=== PATIENT | male | born 2000 | race Caucasian/White ===

== ENCOUNTER 2023-08-07 09:53 | Emergency (ER) | payer OTHER, SELFPAY ==
[2023-08-07 09:59] VITALS: BP 102/86; PULSE 89; RESP 16; TEMP 36.7; O2SAT 99; BMI 25.7
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
[2023-08-07] MEDS: METHYLPREDNISOLONE SOD SUCC PF 125 MG/2 ML VIAL IM (10:10)
[2023-08-07] MEDS: ONDANSETRON 4 MG RAPDIS TABLET SL (10:34)
--- NOTE | 2023-08-07 10:34 | PC.NURSE ---
Pt got nauseous 5 mins after getting steroid shot. Pt states he hasn't eaten today yet. Gatorade and crackers given.
== END 2023-08-07 10:39 | disposition home or self-care (01) ==
LOC: ER 10:10
PROVIDERS: Emergency Provider Emergency Medicine
DX: L50.0 Allergic urticaria (principal)
CPT/HCPCS: 96374; 99284; J2930

== ENCOUNTER 2023-10-04 10:25 | Emergency (ER) | payer OTHER, SELFPAY ==
[2023-10-04 10:24] VITALS: BP 134/77; PULSE 95; RESP 20; TEMP 36.6; O2SAT 100; BMI 22.6
--- NOTE | 2023-10-04 10:38 | ED.ALLEREA1 ---
HPI - Allergic Reaction General Chief complaint: Allergic Reaction Stated complaint: HIVES/STOMACH CRAMPS Time Seen by Provider: 10/04/23 10:33 Source: patient Mode of arrival: walk-in Limitations: no limitations History of Present Illness HPI narrative: yesterday the patient developed raised red rash to the arms and chest after giving his friend - who had been working outside - a hug. He suspects that he had exposure to poison romero, which led to the rash. He did not take any Benadryl or anything else at home. No trouble breathing or shortness of breath. No vomiting or fever. Related Data Home Medications Medication Instructions Recorded Confirmed lamotrigine 200 mg tablet 400 mg PO Q12H 10/04/23 10/04/23 Previous Rx's Medication Instructions Recorded prednisone 10 mg tablet See Rx Instructions .Route 08/07/23 .COMPLEX #30 tabs diphenhydramine HCl 25 mg capsule 25 mg PO Q6H PRN allergic reaction 10/04/23 (Benadryl) #30 caps prednisone 20 mg tablet 40 mg (2 x 20 mg) PO DAILY PRN 10/04/23 rash #14 tabs Allergies Allergy/AdvReac Type Severity Reaction Status Date / Time poison romero extract Allergy Severe Verified 10/04/23 10:29 Penicillins AdvReac Severe Verified 08/07/23 10:03 PFS PFS Social History Smoking status: Heavy tobacco smoker Exam Narrative Exam Narrative: Nurses notes and vital signs reviewed and patient is not hypoxic. afebrile General: Well-appearing and in no apparent distress. Skin: Warm, dry, no pallor noted. Diffuse urticarial rash involving the torso and extremities. Head: Normocephalic, atraumatic. Eye: Pupils are equal, round and EOMI. No scleral icterus. Ears, Nose, Mouth, and Throat: TM are clear, no posterior oropharynx erythema or nasal mucosal hypertrophy, uvula is mid-line Oral mucosa is moist Cardiovascular: Regular Rate and Rhythm without murmur, gallop or rub. Respiratory: No accessory muscle use or respiratory distress. Lungs are clear to auscultation, no wheezing, rales or rhonchi Musculoskeletal: normal ROM Neurological: A&O x4. No cranial nerve dysfunction observed. No truncal ataxia. Moves all extremities. Sensation intact. Psychiatric: Cooperative and interactive. Normal mood and affect. Constitutional Vital Signs, click to edit/add: Last Vital Signs Temp 98 F 10/04/23 10:24 Pulse 95 H 10/04/23 10:24 Resp 20 10/04/23 10:24 BP 134/77 10/04/23 10:24 Pulse Ox 100 10/04/23 10:24 O2 Del Method Room Air 10/04/23 10:24 Course Vital Signs Vital signs: Vital Signs Temperature 98 F 10/04/23 10:24 Pulse Rate 95 H 10/04/23 10:24 Respiratory Rate 20 10/04/23 10:24 Blood Pressure 134/77 10/04/23 10:24 Pulse Oximetry 100 10/04/23 10:24 Oxygen Delivery Method Room Air 10/04/23 10:24 Temperature 98 F 10/04/23 10:24 Pulse Rate 95 H 10/04/23 10:24 Respiratory Rate 20 10/04/23 10:24 Blood Pressure 134/77 10/04/23 10:24 Pulse Oximetry 100 10/04/23 10:24 Oxygen Delivery Method Room Air 10/04/23 10:24 MDM - Allergic Reaction MDM Narrative Medical decision making narrative: Patient developed diffuse urticarial rash - potential exposure to poison romero. He was given IM Solumedrol and oral benadryl in the ED and then was discharged home with prescription for Prednisone and Benadryl. Discussed importance of cleaning under fingernails, remove clothes and shower to remove any residual oils. Discharge Plan Discharge Chief Complaint: Allergic Reaction Clinical Impression: Urticaria Patient Disposition: Home, Self-Care Time of Disposition Decision: 10:41 Prescriptions / Home Meds: New diphenhydramine HCl [Benadryl] 25 mg capsule 25 mg PO Q6H PRN (Reason: allergic reaction) Qty: 30 0RF prednisone 20 mg tablet 40 mg PO DAILY PRN (Reason: rash) Qty: 14 0RF No Action prednisone 10 mg tablet See Rx Instructions .ROUTE .COMPLEX Qty: 30 0RF Rx Instructions: 4 by mouth daily for three days then 3 by mouth daily for three days then 2 by mouth daily for three days then 1 by mouth daily for three days lamotrigine 200 mg tablet 400 mg PO Q12H Instructions: Urticaria (ED) Stand Alone Forms: Portal Instructions Referrals: Physician,Non-Staff, MD [Primary Care Provider] - 1 week
[2023-10-04] MEDS: METHYLPREDNISOLONE SOD SUCC PF 125 MG/2 ML VIAL IM (10:48)
[2023-10-04] MEDS: DIPHENHYDRAMINE HCL 25 MG CAPSULE PO (10:49)
== END 2023-10-04 11:02 | disposition home or self-care (01) ==
PROVIDERS: Emergency Provider Emergency Medicine
DX: L50.9 Urticaria, unspecified (principal); F17.210 Nicotine dependence, cigarettes, uncomplicated; Z79.899 Other long term (current) drug therapy
CPT/HCPCS: 96372; 99284; J2930

== ENCOUNTER 2024-04-11 16:37 | Emergency (ER) | payer OTHER, SELFPAY ==
--- OUTSIDE RECORDS SUMMARY | 2024-04-11 16:50 | XMS_ITS | CCD ---
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 [phone] Office fax: [phone] [facility] Infectious Disease Consult Services PATIENT NAME: Juanjose Bolden SERVICE DATE: January 16, 2023 SERVICE TIME: 9:17 AM PRIMARY CARE PHYSICIAN: Jasper Russo DO Provider requesting the consultation: Tonie Camarillo MD Chief Complaint / Reason for Consult: HPI Juanjose Bolden is a 22 year old male with PMHx of epilepsy, who presented with a wound on his right shoulder after an injury. Patient states he had a fall form skateboarding 5 days back. At that time he noticed a skin break but did not realize the pain so much because of cannabis use. 2 days later, he noticed active purulent discharge, pain, numbness and tingling and redness around the area. Deneis fever. Patient used neosporin on the wound. On arrival, the patient was tachycardiac. Labs showed no leukocytosis. CRP was elevated (2.6). MRSA swab positive. Allergies: ALLERGIES Allergen Reactions Penicillins Unknown Pt does not remember reaction, just that he's allergic Trileptal [Oxcarbaz* Hives Current Antimicrobials: Antibiotic / Dose / Interval Dates 1) IV Cefazolin 1g every 8 hours 01/15/23-ongoing 2) Bacitracin ointment 3) 4) 5) Prior Antimicrobials: Antibiotic Dates 1) IV Ceftriaxone 1g once 01/15/23 2) IV Vancomycin 1g once 01/15/23 3) 4) 5) Current Medications: Current Facility-Administere d Medications Medication Dose Route Frequency NaCl 0.9% iv flush bag 20 mL INTRAVENOUS PRN diphenhydrAMINE 25 mg injection (BENADRYL) 25 mg INTRAVENOUS q 6 H PRN bacitracin zinc 500 unit/gram topical ointment TOPICAL BID ceFAZolin iv piggyback 1 g in D5W (iso-osmotic) 50 mL (ANCEF) 1 g INTRAVENOUS q 8 HR lamoTRIgine 400 mg tab(s) (LaMICtal) 400 mg ORAL BID zonisamide 100 mg cap(s) (ZONEGRAN) 100 mg ORAL q 12 H Outpatient Medications (Listed previous to this encounter): No current facility-administere d medications on file prior to encounter. Current Outpatient Medications on File Prior to Encounter Medication Sig zonisamide (ZONEGRAN) 100 mg capsule Take 1 capsule by mouth every 12 hours. lamoTRIgine (LAMICTAL) 200 mg tablet Take 2 tablets by mouth twice daily. clonazePAM (KLONOPIN) 0.5 mg tablet Take 1 tablet by mouth as needed (for motor seizure lasting > 3 minutes OR for auras to prevent clustering. Max 2 pills in 24 hours.) for up to 180 days. Past Medical History: PAST MEDICAL HISTORY Diagnosis Date Attention deficit disorder (ADD) without hyperactivity Drug side effects, initial encounter 07/15/2018 Elevated cholesterol Epilepsy (HCC) Other infants, unspecified (weight)(765.10) 34 weeks; intubated x 1-2 days; 2 weeks in NICU; [facility] Past Surgical History: No past surgical history on file. Social History / Exposure History: Social History Tobacco Use Smoking status: Former Packs/day: 0.50 Years: 5.00 Pack years: 2.50 Types: Cigarettes Quit date: 2020 Years since quittin.2 Smokeless tobacco: Never Substance Use Topics Alcohol use: Not Currently Drug use: Yes Types: Marijuana Comment: smoking AND tinctures Exposure History: [] Contact with person with known COVID-19 infection Family History: FAMILY HISTORY Problem Relation Age of Onset Hypertension Mother Lung Cancer Maternal Grandfather No Known Problems Paternal Grandmother No Known Problems Paternal Grandfather Review of Systems: REVIEW OF SYSTEMS (14 systems): System POSITIVE Negative Constitutional [] fever [] chills [] night sweats [] weight loss [x] fever [x] chills [x] night sweats [] weight loss Eyes [] vision changes [x] vision changes ENT/mouth [] hearing changes [] runny nose [] loss of smell [] sore throat [] new mouth lesions [] loss of taste [x] hearing changes [] runny nose [] loss of smell [x] sore throat [x] new mouth lesions [] loss of taste Hematologic/lymphati c [] swollen lymph nodes [x] swollen lymph nodes Cardiovascular [] chest pain [x] chest pa (more content not included)... [facility] NURSING PROGon 01-16-2023 NURSING PROG HNO ID: [id number] Author: Moses Downey RN Service: Nursing Author Type: Registered Nurse Type: Nursing Progress Note Filed: 01/16/2023 5:36 PM Note Text: January 16, 2023 TO WHOM IT MAY CONCERN: This is to certify that Juanjose Bolden has been under the care of Dr. Acuna. Juanjose Bolden is unable to work from 01/15/2023 through 01/24/2023. The patient may return to work on 01/25/2023 with the following instructions: No restrictions. Sincerely yours, Moses Downey RN [facility] NURSING PROG HNO ID: [id number] Author: Moses Downey RN Service: Nursing Author Type: Registered Nurse Type: Nursing Progress Note Filed: 01/16/2023 5:35 PM Note Text: Nursing Progress Note: AANDO x 3, pleasant and cooperative.VSS; Afebrile. Meds given as ordered, pills whole with water (see MAR). Continues to C/O RUE soreness, worse with movement. Dressing changed with bacitracin, Xeroform and Kerlix with an [place] covering. PT up independently, steady gait. Safety maintained at this time, call light and personal belongings in reach, bed locked and lowered. PT states no other needs at this time. Will continue to monitor. Took pictures with [facility] phone but phone wouldn't log in to upload. The folowing images are from yesterday but appear unchanged from today. [facility] ALLIED HEALTHon 01-15-2023 ALLIED HEALTH HNO ID: [id number] Author: Nadine Rascon RT(R) Service: ? Author Type: Technologist Type: Allied Health Filed: 01/15/2023 12:43 PM Note Text: Radiology Service Progress Note PATIENT NAME: Juanjose Bolden DATE OF SERVICE: January 15, 2023 TIME: 12:43 PM PATIENT IDENTITY VERIFICATION COMPLETED USING TWO (2) IDENTIFIERS: Name and Date of confirmed by patient verbally and Name and Date of confirmed by identification band. FALL SCREENING: Has the patient had 2 falls in the last year or 1 fall with injury or currently using an Ambulatory Assistive Device (Walker, Cane, Wheelchair, Crutches, etc.)? Emergency Room Patient: Screened in ED PATIENT GENDER DATA: Male PATIENT RELEVANT IMPLANT DATA REVIEWED: Not Applicable RADIOLOGY DEPARTMENT: General X-ray: Exam(s) Completed: Upper Extremity X-Ray(s): Shoulder, AP / TRUE AP right and Humerus, right PERIPHERAL IV DATA: Not applicable SIGNED BY: Nadine Rascon, RT(R) January 15, 2023 12:43 PM Normal [facility]: [id number] Author: J CARLOS Mcneill Service: Social Work Author Type: Physical Therapy Technician Type: Care Mgt Initial Assessment Filed: 01/15/2023 4:16 PM Note Text: CARE MANAGEMENT: ASSESSMENT AND DISCHARGE PLAN SERVICE DATE: January 15, 2023 SERVICE TIME: 2:00 pm PRIMARY CARE PHYSICIAN: Jasper Russo DO Primary Contact: Extended Emergency Contact Information Primary Emergency Contact: Nadine Morillo Address: [address] [place] [address] Mobile Relation: Mother ADMISSION STATUS: Emergency Insurance Provider: [facility] MEDICAID NEEDS PRIOR TO DISCHARGE Needs Prior to Discharge: IV Antibiotics POTENTIAL TRANSITION PLANS To Be Determined Based on clinical judgement, Care Management will address the following needs: Medical Patient's perception of need for this admission: arm wound infection ADVANCE DIRECTIVES Current Advance Directive: None Coal 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 From what level of care did patient present?: Home Last discharge within 30 days: No PATIENT SCREEN Patient/Representati ve Stated Goals: To have reduction in symptoms Under the care of a PCP?: Yes, Internal Provider Provider Name: Jasper Russo Last Known Visit: 10/04/23 Does the patient have transportation upon discharge?: No Situation: Pt walked to ED and wants to walk home. Use of any community resources?: No Does the patient have a stable and supportive living arrangement and home setting?: Yes Are there any potential risks or gaps identified by risk/functional/fall ,etc. scores in the EMR?: No Any potential risks related to substance abuse and/or behavioral health?: No Situation: denies Based on clinical judgement, Care Management will address the following needs: Medical CAREGIVER ASSESSMENT Caregiver is ready, willing and able to meet the patient's needs as recommended by the inter-professional team:: No Caregiver needed Patient's transition needs and plan for meeting these needs: IV atbx No medical discharge barriers identified at this time. No social discharge barriers identified at this time. No behavioral/cognitive discharge barriers identified at this time. No functional discharge barriers identified at this time. FREEDOM OF CHOICE EXPLAINED: Levan of Choice Given: No Reason Not Given: No placements necessary Are you interested in bedside delivery of your medications? Yes ASSESSMENT AND PLAN: ED assessed bedside. Pt presents to ED with right arm wound infection from skateboarding. Pt lives in an apartment with a roommate (Kunal). [employer], employed, drives (car not working) and does not utilize DME. Pt wants to walk home. CM/SW following to assist with discharge planning. SIGNATURE: J CARLOS Mcneill PATIENT NAME: Juanjose Bolden DATE: January 15, 2023 TIME: 3:44 PM CONTACT #: [id number] Normal [facility] CBC W Auto Differential pane l (Bld)on 01-15-2023 Basophils (Bld) [#/Vol] 0.03 10*3/uL Normal <0.11 [facility] Comment on above: Order Comment: Speci men Type: BLOOD SPECIMEN Ordering Facility: [facility] Address: [address] [place] [id number] Performed By: #### 5 7021-8 #### [facility] CLIA [id number] [place] [address] [place] Basophils/100 WBC (Bld) 0.4 % Normal [facility] Comment on above: Order Comment: Speci men Type: BLOOD SPECIMEN Ordering Facility: [facility] Address: [address] [place] [address] Performed By: #### 5 7021-8 #### [facility] CLIA [id number] [address] [place] [address] [place] Differential cell count method Nom (Bld) Auto Normal [facility] Comment on above: Order Comment: Speci men Type: BLOOD SPECIMEN Ordering Facility: [facility] Address: [address] [place] [address] Performed By: #### 5 7021-8 #### [facility] CLIA [id number] [address] [place] [address] [place] Eosinophils (Bld) [#/Vol] 0.14 10*3/uL Normal <0.46 [facility] Comment on above: Order Comment: Speci men Type: BLOOD SPECIMEN Ordering Facility: [facility] Address: [address] [place] [address] Performed By: #### 5 7021-8 #### [facility] CLIA [id number] [address] [place] [address] [place] Eosinophils/100 WBC (Bld) 1.8 % Normal [facility] Comment on above: Order Comment: Speci men Type: BLOOD SPECIMEN Ordering Facility: [facility] Address: [address] [place] [address] Performed By: #### 5 7021-8 #### [facility] CLIA [id number] [address] [place] [address] [place] Erythrocyte distribution width (RBC) [Ratio] 11.6 % Normal 11.5-15.0 [facility] Comment on above: Order Comment: Speci men Type: BLOOD SPECIMEN Ordering Facility: [facility] Address: [address] [place] [address] Performed By: #### 5 7021-8 #### [facility] CLIA [id number] [address] [place] [address] [place] Hematocrit (Bld) [Volume fraction] 43.2 % Normal 39.0-51.0 [facility] Comment on above: Order Comment: Speci men Type: BLOOD SPECIMEN Ordering Facility: [facility] Address: [address] [place] [address] Performed By: #### 5 7021-8 #### [facility] CLIA [id number] [address] [place] [address] [place] Hemoglobin (Bld) [Mass/Vol] 14.4 g/dL Normal 13.0-17.0 [facility] Comment on above: Order Comment: Speci men Type: BLOOD SPECIMEN Ordering Facility: [facility] Address: [address] [place] [address] Performed By: #### 5 7021-8 #### [facility] CLIA [id number] [address] [place] [address] [place] Immature granulocytes (Bld) [#/Vol] 10*3/uL Normal <0.10 [facility] Comment on above: Order Comment: Speci men Type: BLOOD SPECIMEN Ordering Facility: [facility] Address: [address] [place] [address] Performed By: #### 5 7021-8 #### [facility] CLIA [id number] [address] [place] [address] [place] Immature granulocytes/100 WBC (Bld) 0.3 % Normal [facility] Comment on above: Order Comment: Speci men Type: BLOOD SPECIMEN Ordering Facility: [facility] Address: [address] [address] Performed By: #### 5 7021-8 #### [facility] CLIA [id number] [address] [place] [address] [place] Lymphocytes (Bld) [#/Vol] 1.74 10*3/uL Normal 1.00-4.00 [facility] Comment on above: Order Comment: Speci men Type: BLOOD SPECIMEN Ordering Facility: [facility] Address: [address] [address] Performed By: #### 5 7021-8 #### [facility] CLIA [id number] [address] [place] [address] [place] Lymphocytes/100 WBC (Bld) 22.0 % Normal [facility] Comment on above: Order Comment: Speci men Type: BLOOD SPECIMEN Ordering Facility: [facility] Address: [address] [address] Performed By: #### 5 7021-8 #### [facility] CLIA [id number] [address] [place] [address] [place] MCH (RBC) [Entitic mass] 29.8 pg Normal 26.0-34.0 [facility] Comment on above: Order Comment: Speci men Type: BLOOD SPECIMEN Ordering Facility: [facility] Address: [address] [place] [address] Performed By: #### 5 7021-8 #### [facility] CLIA [id number] [address] [place] [address] [place] MCHC (RBC) [Mass/Vol] 33.3 g/dL Normal 30.5-36.0 [facility] Comment on above: Order Comment: Speci men Type: BLOOD SPECIMEN Ordering Facility: [facility] Address: [address] [place] [address] Performed By: #### 5 7021-8 #### [facility] CLIA [id number] [address] [place] [address] [place] MCV (RBC) [Entitic vol] 89.3 fL Normal 80.0-100.0 [facility] Comment on above: Order Comment: Speci men Type: BLOOD SPECIMEN Ordering Facility: [facility] Address: [address] [place] [address] Performed By: #### 5 7021-8 #### [facility] CLIA [id number] [address] [place] [address] [place] Monocytes (Bld) [#/Vol] 0.44 10*3/uL Normal <0.87 [facility] Comment on above: Order Comment: Speci men Type: BLOOD SPECIMEN Ordering Facility: [facility] Address: [address] [place], [place] [id number] Performed By: #### 5 7021-8 #### [facility] CLIA [id number] [address] [place] [address] [place] Monocytes/100 WBC (Bld) 5.6 % Normal [facility] Comment on above: Order Comment: Speci men Type: BLOOD SPECIMEN Ordering Facility: [facility] Address: [address] [place] [address] Performed By: #### 5 7021-8 #### [facility] CLIA [id number] [address] [place] [address] [place] Neutrophils (Bld) [#/Vol] 5.54 10*3/uL Normal 1.45-7.50 [facility] Comment on above: Order Comment: Speci men Type: BLOOD SPECIMEN Ordering Facility: [facility] Address: [address] [place] [address] Performed By: #### 5 7021-8 #### [facility] CLIA [id number] [address] [place] [address] [place] Neutrophils/100 WBC (Bld) 69.9 % Normal [facility] Comment on above: Order Comment: Speci men Type: BLOOD SPECIMEN Ordering Facility: [facility] Address: [address] [place] [address] Performed By: #### 5 7021-8 #### [facility] CLIA [id number] [address] [place] [address] [place] Nucleated RBC (Bld) [#/Vol] 10*3/uL Normal <0.01 [facility] Comment on above: Order Comment: Speci men Type: BLOOD SPECIMEN Ordering Facility: [facility] Address: [address] [place] [address] Performed By: #### 5 7021-8 #### [facility] CLIA [id number] [address] [place] [address] [place] Nucleated RBC/100 WBC (Bld) [Ratio] 0.0 /100 WBC Normal [facility] Comment on above: Order Comment: Speci men Type: BLOOD SPECIMEN Ordering Facility: [facility] Address: [address] [address] Performed By: #### 5 7021-8 #### [facility] CLIA [id number] [address] [place] [address] [place] Platelet mean volume (Bld) [Entitic vol] 8.8 fL Low 9.0-12.7 [facility] Comment on above: Order Comment: Speci men Type: BLOOD SPECIMEN Ordering Facility: [facility] Address: [address] [address] Performed By: #### 5 7021-8 #### [facility] CLIA [id number] [address] [place] [address] [place] Platelets (Bld) [#/Vol] 271 10*3/uL Normal 150-400 [facility] Comment on above: Order Comment: Speci men Type: BLOOD SPECIMEN Ordering Facility: [facility] Address: [address] [address] Performed By: #### 5 7021-8 #### [facility] CLIA [id number] [address] [place] [address] [place] RBC (Bld) [#/Vol] 4.84 10*6/uL Normal 4.20-6.00 [facility] Comment on above: Order Comment: Speci men Type: BLOOD SPECIMEN Ordering Facility: [facility] Address: [address] [address] Performed By: #### 5 7021-8 #### [facility] CLIA [id number] [address] [place] [address] [place] WBC (Bld) [#/Vol] 7.91 10*3/uL Normal 3.70-11.00 [facility] Comment on above: Order Comment: Speci men Type: BLOOD SPECIMEN Ordering Facility: [facility] Address: [address] [place] [address] Performed By: #### 5 7021-8 #### [facility] CLIA [id number] [address] [place] [address] [place] CK SerPl-cCncon 01-15-2023 CK [Catalytic activity/Vol] 65 U/L Normal 51-298 [facility] Comment on above: Order Comment: Speci men Type: BLOOD SPECIMENOrdering Facility: [facility] Address: [address] [id number] Performed By: #### 2 8, 2157-03 ####[facility] [id number] [address] [id number] [place] CRP SerPl-mCncon 01-15-2023 CRP [Mass/Vol] 2.6 mg/dL High <0.9 [facility] Comment on above: Order Comment: Speci men Type: BLOOD SPECIMENOrdering Facility: [facility] Address: [address] Performed By: #### 2 4328, 1988-02, 2157-03 ####[facility] [id number] [place] [id number] [place] Comprehensive metabolic 2000 panelon 01-15-2023 Albumin [Mass/Vol] 4.6 g/dL Normal 3.9-4.9 [facility] Comment on above: Order Comment: Speci men Type: BLOOD SPECIMENOrdering Facility: [facility] Address: [address] [address] Performed By: #### 2 4328, 2157-03 ####[facility] [id number] [place] [id number] [place] ALP [Catalytic activity/Vol] 113 U/L Normal 38-113 [facility] Comment on above: Order Comment: Speci men Type: BLOOD SPECIMENOrdering Facility: [facility] Address: [place] [address] Performed By: #### 2 8, 1988-02, 2157-03 ####[facility] [id number] [place] [id number] [place] ALT [Catalytic activity/Vol] 32 U/L Normal 10-54 [facility] Comment on above: Order Comment: Speci men Type: BLOOD SPECIMENOrdering Facility: [facility] Address: [address] Performed By: #### 2 432-8, 2157-03 ####[facility] [id number] [place] [id number] [place] Anion gap [Moles/Vol] 9 mmol/L Normal 9-18 [facility] Comment on above: Order Comment: Speci men Type: BLOOD SPECIMENOrdering Facility: [facility] Address: [address] [address] Performed By: #### 2 8, 2157-03 ####[facility] [id number] [place] [id number] [place] AST [Catalytic activity/Vol] 23 U/L Normal 14-40 [facility] Comment on above: Order Comment: Speci men Type: BLOOD SPECIMENOrdering Facility: [facility] Address: [address] [address] Performed By: #### 2 8, 2157-03 ####[facility] [id number] [place] [id number] [place] Bilirubin [Mass/Vol] 0.3 mg/dL Normal 0.2-1.3 [facility] Comment on above: Order Comment: Speci men Type: BLOOD SPECIMENOrdering Facility: [facility] Address: [address] Performed By: #### 2 8, 2157-03 ####[facility] [id number] [place] [id number] [place] Calcium [Mass/Vol] 10.1 mg/dL Normal 8.5-10.2 [facility] Comment on above: Order Comment: Speci men Type: BLOOD SPECIMENOrdering Facility: [facility] Address: [address] [address] Performed By: #### 2 432-8, 2157-03 ####[facility] [id number] [place] [id number] [place] Chloride [Moles/Vol] 101 mmol/L Normal 97-105 [facility] Comment on above: Order Comment: Speci men Type: BLOOD SPECIMENOrdering Facility: [facility] Address: [address] [id number] Performed By: #### 2 4323-8, 1988-02, 2157-03 ####[facility] [id number] [place] [id number] [place] CO2 [Moles/Vol] 30 mmol/L Normal 22-30 [facility] Comment on above: Order Comment: Speci men Type: BLOOD SPECIMENOrdering Facility: [facility] Address: [address] [id number] Performed By: #### 2 4323-8, 1988-02, 2157-03 ####[facility] [id number] [place] [id number] [place] Creatinine [Mass/Vol] 0.76 mg/dL Normal 0.73-1.22 [facility] Comment on above: Order Comment: Speci men Type: BLOOD SPECIMENOrdering Facility: [facility] Address: [address] [place], [place] [address] Performed By: #### 2 4323-8, 2157-03 ####[facility] [id number] [address] [id number] [facility] [place] ESTIMATED GLOMERULAR FILTRATION RATE 130 mL/min/1.73m??? Normal >=60 [facility] Comment on above: Order Comment: Speci men Type: BLOOD SPECIMENOrdering Facility: [facility] Address: [address] [place], [place] [address] Result Comment: Luz mated Glomerular Filtration Rate (eGFR) is calculated using the 2020 CKD-EPI creatinine equation. This equation utilizes serum creatinine, sex, and age as parameters. The creatinine assay has traceable calibration to isotope dilution-mass spectrometry. Refer to KDIGO guidelines for clinical interpretation. In patients with unstable renal function, e.g. those with acute kidney injury, the eGFR may not accurately reflect actual GFR. Performed By: #### 2 4323-8, 2157-03 ####[facility] [id number] [place] [address] [place] Glucose [Mass/Vol] 93 mg/dL Normal 74-99 [facility] Comment on above: Order Comment: Speci men Type: BLOOD SPECIMENOrdering Facility: [facility] Address: [address] [place], [place] [phone] Result Comment: The [place] Diabetes Association (ADA) provides guidance for cutoff values for fasting glucose and random glucose. The ADA defines fasting as no caloric intake for at least 8 hours. Fasting plasma glucose results between 100 to 125 mg/dL indicate increased risk for diabetes (prediabetes). Fasting plasma glucose results greater than or equal to 126 mg/dL meet the criteria for diagnosis of diabetes. In the absence of unequivocal hyperglycemia, results should be confirmed by repeat testing. In a patient with classic symptoms of hyperglycemia or hyperglycemic crisis, random plasma glucose results greater than or equal to 200 mg/dL meet the criteria for diagnosis of diabetes. Reference: Standards of Medical Care in Diabetes 2016, [place] Diabetes Association. Diabetes Care. 2016.39(Suppl 1). Performed By: #### 2 4323-8, 2157-03 ####[facility] [id number] [place] [id number] [place] Potassium [Moles/Vol] 4.4 mmol/L Normal 3.7-5.1 [facility] Comment on above: Order Comment: Speci men Type: BLOOD SPECIMENOrdering Facility: [facility] Address: [address] [place] [address] Performed By: #### 2 4323-8, 2157-03 ####[facility] [id number] [place] [id number] [place] Protein [Mass/Vol] 7.5 g/dL Normal 6.3-8.0 [facility] Comment on above: Order Comment: Speci men Type: BLOOD SPECIMENOrdering Facility: [facility] Address: [address] Performed By: #### 2 4323-8, 1988-02, 2157-03 ####[facility] [id number] [place] [id number] [place] Sodium [Moles/Vol] 140 mmol/L Normal 136-144 [facility] Comment on above: Order Comment: Speci men Type: BLOOD SPECIMENOrdering Facility: [facility] Address: [address] [place] [address] Performed By: #### 2 4323-8, 2157-03 ####[facility] [id number] [address] [id number] [place] Urea nitrogen [Mass/Vol] 15 mg/dL Normal 9-24 [facility] Comment on above: Order Comment: Speci men Type: BLOOD SPECIMENOrdering Facility: [facility] Address: [address] [place] [address] Performed By: #### 2 4323-8, 2157-03 ####[facility] [id number] [address] [place] [id number] [facility] ED NOTEon 01-15-2023 ED NOTE HNO ID: [id number] Author: Anthony Casarez RN Service: Nursing Author Type: Registered Nurse Type: ED Notes Filed: 01/15/2023 12:11 PM Note Text: Pt reports he was skateboarding two days ago and fell and hit his right arm/shoulder. Pt with infected would to right arm with cellulites. Arm is red and swollen and warm Plan of care -Monitor Patient's Vital Signs for changes in condition -Monitor patient for changes in pain -Maintain patient safety and privacy -Provide comfort measures -Call light in place Siderails up, bed in locked and low position Normal [facility] ED PROV NOTEon 01-15-2023 ED PROV NOTE HNO ID: [id number] Author: Mckenzie Arcos DO Service: Emergency Medicine Author Type: Physician Type: ED Provider Notes Filed: 01/15/2023 5:28 PM Note Text: ED Provider Note Patient Name: Juanjose Bolden : 2000 SERVICE DATE: 01/15/23 History Patient presents with: Wound Infection: Pt reports he was skateboarding two days ago and fell and hit his right arm/shoulder. Pt with infected would to right arm with cellulites. Arm is red and swollen and warm [facility]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 Address: [address] [place], [place] [id number] Performed By: #### 5 7021-8 #### [facility] [place] [id number] [address] [place] [address] [place] Platelets (Bld) [#/Vol] 375 10*3/uL Normal 150-400 [facility] Comment on above: Order Comment: Speci men Type: BLOOD SPECIMEN Ordering Facility: [facility] Address: [address] [place], [place] [address] Performed By: #### 5 7021-8 #### [facility] CLIA [id number] [address] [place], [place] [address] [place] RBC (Bld) [#/Vol] 5.45 10*6/uL Normal 4.20-6.00 [facility] Comment on above: Order Comment: Speci men Type: BLOOD SPECIMEN Ordering Facility: [facility] Address: [address] [place], [place] [address], [place] [address] Performed By: #### 5 7021-8 #### [facility] CLIA [id number] [address] [place], [place] [address] [place] WBC (Bld) [#/Vol] 8.83 10*3/uL Normal 3.70-11.00 [facility] Comment on above: Order Comment: Speci men Type: BLOOD SPECIMEN Ordering Facility: [facility] Address: [place] [address] Performed By: #### 5 7021-8 #### [facility] CLIA [id number] [address] [place], [place] [address] [facility] [place] CT BRAIN WO IVCONon 01-25-20 CT BRAIN WO IVCON * * *Final Report* * * DATE OF EXAM: Jan 24 2022 9:33AM [facility] 0504 - CT BRAIN WO IVCON / PROCEDURE REASON: Head trauma, headache * * * * Physician Interpretation * * * * EXAMINATION: CT BRAIN WO IVCON CLINICAL HISTORY: Head trauma, headache TECHNIQUE: Serial axial images without IV contrast were obtained from the vertex to the foramen magnum. MQ: CTBWO_3 CT Radiation dose: Integrated Dose-Length Product (DLP) for this visit = 875 mGy*cm CT Dose Reduction Employed: No dose reduction techniques were required COMPARISON: None. RESULT: Post-operative change: None. Acute change: No evidence of an acute infarct or other acute parenchymal process. Hemorrhage: No evidence of acute intracranial hemorrhage. ECASS hemorrhagic transformation score: Not Applicable Mass Lesion / Mass Effect: There is no evidence of an intracranial mass or extraaxial fluid collection. No significant mass effect. Chronic change: None apparent. Parenchyma: There is no significant volume loss. The brain parenchyma is otherwise within normal limits for age. Ventricles: The ventricles are within normal limits of size and configuration for age. 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 Paranasal sinuses and skull base: The visualized paranasal sinuses are grossly clear. The skull base and imaged soft tissues are unremarkable. Clear Coat Sprayer (topogram) images: No additional findings. IMPRESSION: No acute intracranial hemorrhage identified. Air Launch Weapons Technician: PSCB Transcribe Date/Time: Jan 24 2022 9:47A Dictated by : JAGDEEP MALHOTRA MD This examination was interpreted and the report reviewed and electronically signed by: JAGDEEP MALHOTRA MD on Jan 24 2022 9:56AM EST [id number] CN [facility] metabolic 2000 panelon 01-24-2022 Albumin [Mass/Vol] 5.4 g/dL High 3.9-4.9 [facility] Comment on above: Order Comment: Speci men Type: BLOOD SPECIMEN Ordering Facility: [facility] Address: [address] [place] [address] Performed By: #### 5 7021-8 #### [facility] CLIA [id number] [address] [place] [address] STATES [facility] ALP [Catalytic activity/Vol] 138 U/L High 38-113 [facility] Comment on above: Order Comment: Speci men Type: BLOOD SPECIMEN Ordering Facility: [facility] Address: [address] [place] [address] Performed By: #### 5 7021-8 #### [facility] CLIA [id number] [address] [place] [address] ALT [Catalytic activity/Vol] 74 U/L High 10-54 [facility] Comment on above: Order Comment: Speci men Type: BLOOD SPECIMEN Ordering Facility: [facility] Address: [address] [place] [address] Performed By: #### 5 7021-8 #### [facility] CLIA [id number] [address] [place], [place] [address] [place] Anion gap [Moles/Vol] 30 mmol/L High 9-18 [facility] Comment on above: Order Comment: Speci men Type: BLOOD SPECIMEN Ordering Facility: [facility] Address: [address] [place] [address] Performed By: #### 5 7021-8 #### [facility] CLIA [id number] [address] [place] [address] [place] AST [Catalytic activity/Vol] 43 U/L High 14-40 [facility] Comment on above: Order Comment: Speci men Type: BLOOD SPECIMEN Ordering Facility: [facility] Address: [address] [place] [address] Performed By: #### 5 7021-8 #### [facility] CLIA [id number] [address] [place] [address] [place] Bilirubin [Mass/Vol] 0.2 mg/dL Normal 0.2-1.3 [facility] Comment on above: Order Comment: Speci men Type: BLOOD SPECIMEN Ordering Facility: [facility] Address: [address] [place] [address] Performed By: #### 5 7021-8 #### [facility] CLIA [id number] [facility] [place] [address] [place] Calcium [Mass/Vol] 10.0 mg/dL Normal 8.5-10.2 [facility] Comment on above: Order Comment: Speci men Type: BLOOD SPECIMEN Ordering Facility: [facility] Address: [address] [place], [place] [address] Performed By: #### 5 7021-8 #### [facility] CLIA [id number] [address] [place] [address] [place] Chloride [Moles/Vol] 98 mmol/L Normal 97-105 [facility] Comment on above: Order Comment: Speci men Type: BLOOD SPECIMEN Ordering Facility: [facility] Address: [address] [place], [place] [address] Performed By: #### 5 7021-8 #### [facility] CLIA [id number] [facility] [address] [place] [address] [place] CO2 [Moles/Vol] 12 mmol/L Low 22-30 [facility] Comment on above: Order Comment: Speci men Type: BLOOD SPECIMEN Ordering Facility: [facility] Address: [address] [place] [address] [place] [address] Performed By: #### 5 7021-8 #### [facility] [place] [id number] [address] [place] [address] [place] OF [facility] Creatinine [Mass/Vol] 0.87 mg/dL Normal 0.73-1.22 [facility] Comment on above: Order Comment: Kisha allison Type: BLOOD SPECIMEN Ordering Facility: [facility] Address: [address] [place], [place] [address] Performed By: #### 5 7021-8 #### [facility] [id number] [address] [place] [address] ESTIMATED GLOMERULAR FILTRATION RATE 126 mL/min/1.73m??? Normal >=60 [facility] Comment on above: Order Comment: Kisha allison Type: BLOOD SPECIMEN Ordering Facility: [facility] Address: [address] [place] [address] Result Comment: Luz mated Glomerular Filtration Rate (eGFR) is calculated using the 2020 CKD-EPI creatinine equation. This equation utilizes serum creatinine, sex, and age as parameters. The creatinine assay has traceable calibration to isotope dilution-mass spectrometry. Refer to KDIGO guidelines for clinical interpretation. In patients with unstable renal function, e.g. those with acute kidney injury, the eGFR may not accurately reflect actual GFR. Performed By: #### 5 7021-8 #### [facility] IA [id number] [address] [place], [place] [address] [place] Glucose [Mass/Vol] 121 mg/dL High 74-99 [facility] Comment on above: Order Comment: Kisha allison Type: BLOOD SPECIMEN Ordering Facility: [facility] Address: [address] [place], [place] [address] Result Comment: The [place] Diabetes Association (ADA) provides guidance for cutoff values for fasting glucose and random glucose. The ADA defines fasting as no caloric intake for at least 8 hours. Fasting plasma glucose results between 100 to 125 mg/dL indicate increased risk for diabetes (prediabetes). Fasting plasma glucose results greater than or equal to 126 mg/dL meet the criteria for diagnosis of diabetes. In the absence of unequivocal hyperglycemia, results should be confirmed by repeat testing. In a patient with classic symptoms of hyperglycemia or hyperglycemic crisis, random plasma glucose results greater than or equal to 200 mg/dL meet the criteria for diagnosis of diabetes. Reference: Standards of Medical Care in Diabetes 2016, [place] Diabetes Association. Diabetes Care. 2016.39(Suppl 1). Performed By: #### 5 7021-8 #### [facility] [place] [id number] [address] [place] [address] [place] Potassium [Moles/Vol] 4.3 mmol/L Normal 3.7-5.1 [facility] Comment on above: Order Comment: Hernáni keegan Type: BLOOD SPECIMEN Ordering Facility: [facility] Address: [address] [place] [address] Performed By: #### 5 7021-8 #### [facility] [place] [id number] [address] [place] [address] [place] Protein [Mass/Vol] 8.9 g/dL High 6.3-8.0 [facility] Comment on above: Order Comment: Hernáni keegan Type: BLOOD SPECIMEN Ordering Facility: [facility] Address: [address] [place] [address] Performed By: #### 5 7021-8 #### [facility] IA [id number] [address] [place] [address] [place] Sodium [Moles/Vol] 140 mmol/L Normal 136-144 [facility] Comment on above: Order Comment: Speci men Type: BLOOD SPECIMEN Ordering Facility: [facility] Address: [address] [place] [address] Performed By: #### 5 7021-8 #### [facility] CLIA [id number] [address] [place], [place] [address] [place] Urea nitrogen [Mass/Vol] 17 mg/dL Normal 9-24 [facility] Comment on above: Order Comment: Speci men Type: BLOOD SPECIMEN Ordering Facility: [facility] Address: [address] [place], [place] [address] [address] Performed By: #### 5 7021-8 #### [facility] [id number] [facility] [address] ATTN BH[address]AV[address] ED NOTEon 01-24-2022 ED NOTE HNO ID: [id number] Author: Gretchen Thomas RN Service: ? Author Type: Registered Nurse Type: ED Notes Filed: 01/24/2022 11:44 AM Note Text: Discharge instructions reviewed, patient aware for the need to follow up. Follow up name and phone number provided. Patient educated on condition and aware of what s/s to look out for and immediately call his doctor or return to the nearest ED. Patient skin is warm, dry and acyanotic. Respirations even and non-labored. Pt stable and voiced no concerns at discharge. Patient provided with MyChart activation code. [facility] ED NOTE HNO ID: [id number] Author: Gretchen Thomas RN Service: ? Author Type: Registered Nurse Type: ED Notes Filed: 01/24/2022 11:40 AM Note Text: PT given pants to wear home. Pt has all belongings and is steady on his feet. [facility] ED NOTE HNO ID: [id number] Author: Gretchen Thomas RN Service: ? Author Type: Registered Nurse Type: ED Notes Filed: 01/24/2022 10:53 AM Note Text: Pt awake and answering questions appropriately. Pt drank water without issue. LIP at the bedside. [facility] ED NOTE HNO ID: [id number] Author: Gretchen Thomas RN Service: ? Author Type: Registered Nurse Type: ED Notes Filed: 01/24/2022 10:12 AM Note Text: Mom at the bedside. [facility] ED NOTE HNO ID: [id number] Author: Gretchen Thomas RN Service: ? Author Type: Registered Nurse Type: ED Notes Filed: 01/24/2022 8:56 AM Note Text: 1 mg ativan given per MD verbal order. [facility] ED NOTE HNO ID: [id number] Author: Daphne Qureshi RN Service: ? Author Type: Registered Nurse Type: ED Notes Filed: 01/24/2022 8:53 AM Note Text: Bed: ED-15 Expected date: Expected time: Means of arrival: Comments: ems [facility] ED PROV NOTEon 01-24-2022 ED PROV NOTE HNO ID: [id number] Author: Héctor Leo DO Service: Emergency Medicine Author Type: Physician Type: ED Provider Notes Filed: 01/24/2022 4:58 PM Note Text: ED Provider Note Patient Name: Juanjose Bolden : 2000 SERVICE DATE: 01/24/22 History Patient presents with: Seizures 21-year-old male with PMH epilepsy, ADHD, presenting to ED via EMS for concern of seizure activity. Per EMS report: Coworkers witnessed 2 generalized seizures at work before calling EMS. He was confused after the second seizure. EMS witnessed a third seizure however seizure aborted prior to any medications. No meds given by EMS. Patient postictal, confused upon arrival; patient not answering questions or following commands. Patient incontinent of urine, some blood on the lips and right ear. History provided by: Medical records and patient PAST MEDICAL HISTORY Diagnosis Date - Attention deficit disorder (ADD) without hyperactivity - Elevated cholesterol - Epilepsy (HCC) - Other infants, unspecified (weight)(765.10) 34 weeks; intubated x 1-2 days; 2 weeks in NICU; [facility] PAST SURGICAL HISTORY Procedure Laterality Date - NONE no circ FAMILY HISTORY Problem Relation Age of Onset - Hypertension Mother - None Father - Lung Cancer Maternal Grandfather - No Known Problems Paternal Grandmother - No Known Problems Paternal Grandfather Social History Tobacco Use - Smoking status: Current Every Day Smoker Packs/day: 0.50 Years: 5.00 Pack years: 2.50 Types: Cigarettes - Smokeless tobacco: Never Used - Tobacco comment: vape Substance and Sexual Activity - Alcohol use: Not Currently - Drug use: Not Currently - Sexual activity: Not on file ALLERGIES Allergen Reactions - Fx Hx Of Penicillin* Unknown - Trileptal [Oxcarbaz* Hives Review of Systems Unable to perform ROS: Mental status change Physical Exam Vitals [01/24/22 0853] BP Pulse Temp Temp src Resp SpO2 Weight Height 159/104 (!) 127 37.1 ?C (98.8 ?F) Axillary 20 99 % -- -- Physical Exam Vitals and nursing note reviewed. Constitutional: Appearance: He is well-developed. HENT: Head: Normocephalic and atraumatic. Comments: Dry, chapped lips. +bite to right posterior tongue. Eyes: Pupils: Pupils are equal, round, and reactive to light. Cardiovascular: Rate and Rhythm: Normal rate and regular rhythm. Heart sounds: Normal heart sounds. No murmur heard. Pulmonary: Effort: Pulmonary effort is normal. Breath sounds: Normal breath sounds. No wheezing. Abdominal: General: Bowel sounds are normal. There is no distension. Palpations: Abdomen is soft. Tenderness: There is no abdominal tenderness. Genitourinary: Comments: Incontinent of urine. Musculoskeletal: General: Normal range of motion. Cervical back: Normal range of motion and neck supple. Comments: No midline, spinous process tenderness. No lacerations, deformity or ecchymosis to extremities. Lymphadenopathy: Cervical: No cervical adenopathy. Skin: General: Skin is warm and dry. Findings: No rash. Neurological: Mental Status: He is alert. Comments: Awake, uncooperative, confused. Appears postictal. Diagnostic Testing ED Labs Ordered and Reviewed COMP METABOLIC PANEL - Abnormal; Notable for the following components: Result Value Ref Range Protein, Total 8.9 (*) 6.3 - 8.0 g/dL Albumin 5.4 (*) 3.9 - 4.9 g/dL Alkaline Phosphatase 138 (*) 38 - 113 U/L AST 43 (*) 14 - 40 U/L ALT 74 (*) 10 - 54 U/L Glucose 121 (*) 74 - 99 mg/dL CO2 12 (*) 22 - 30 mmol/L Anion Gap 30 (*) 9 - 18 mmol/L All other components within normal limits MAGNESIUM BLD - Abnormal; Notable for the following components: Magnesium 2.4 (*) 1.7 - 2.3 mg/dL All other components within normal limits CBC + DIFF - Abnormal; Notable for the following components: MPV 8.5 (*) 9.0 - 12.7 fL All other components within normal limits Narrative: This is an appended report. These results have been appended to a previously verified report. TOX SCREEN ROUT UR - Abnormal; Notable for the following components: Cannabinoids, Urine Preliminary positive (*) Negative All other components within normal limits Narrative: Immunoassay screen only. Cross reactivity with other substances can occur with immunoassay screening. Detection of any drug(s) in this urine toxicology panel is presumptive only. These tests are for medical purposes only and should not be used for compliance monitoring, legal, or forensic use. Samples should be within normal physiological conditions (e.g. pH). This assay does not include adulteration/specime n validity testing. In clinical settings, confirmatory testing is at the practitioner's discretion [1]. If clinically indicated, confirmation by high specificity, quantitative methodology, which includes adulteration/specime n validity testing, may be requested on the same specimen through Client S (more content not included)... Normal [facility] Ethanol [Mass/Vol] mg/dL Normal <11 [facility] Comment on above: Order Comment: Speci men Type: BLOOD SPECIMEN Ordering Facility: [facility] Address: [address] [place] [address] Performed By: #### 5 7021-8 #### [facility] CLIA [id number] [address] [place] [address] [place] [facility] Magnesium [Mass/Vol] 2.4 mg/dL High 1.7-2.3 [facility] Comment on above: Order Comment: Speci men Type: BLOOD SPECIMEN Ordering Facility: [facility] Address: [address] [place] [address] Performed By: #### 5 7021-8 #### [facility] CLIA [id number] [address] [place] [address] [place] TOX SCREEN ROUT URon 022 Amphetamines Confirm (U) [Mass/Vol] Negative Normal Negative [facility] Comment on above: Order Comment: Speci men Type: URINE SPECIMEN Ordering Facility: [facility] Address: [address] [place] [address] Result Comment: Cuto ff threshold at 1000 ng/mL. Performed By: #### U TOX2 #### [facility] CLIA [id number] [address] [place], [place] [id number] [place] BARBITURATES, URINE Negative Normal Negative [facility] Comment on above: Order Comment: Speci men Type: URINE SPECIMEN Ordering Facility: [facility] Address: [address] [place] [address] Result Comment: Cuto ff threshold at 200 ng/mL. Performed By: #### U TOX2 #### [facility] CLIA [id number] [facility] [place] [address] [place] BENZODIAZEPINES, UR Negative Normal Negative [facility] Comment on above: Order Comment: Speci men Type: URINE SPECIMEN Ordering Facility: [facility] Address: [address] [place] [address] Result Comment: Cuto ff threshold at 200 ng/mL. Performed By: #### U TOX2 #### [facility] CLIA [id number] [address] [place] [address] [place] CANNABINOIDS,URINE Positive Abnormal Negative [facility] Comment on above: Order Comment: Speci men Type: URINE SPECIMEN Ordering Facility: [facility] Address: [address] [place] [address] Result Comment: Cuto ff threshold at 50 ng/mL. Performed By: #### U TOX2 #### [facility] CLIA [id number] [address] [place] [address] [place] Cocaine Ql (U) Negative Normal Negative [facility] Comment on above: Order Comment: Speci men Type: URINE SPECIMEN Ordering Facility: [facility] Address: [address] [place] [address] Result Comment: Cuto ff threshold at 300 ng/mL. Performed By: #### U TOX2 #### [facility] CLIA [id number] [address] [place], [place] [id number] [place] Ethanol (U) [Mass/Vol] <11 Normal <11 [facility] Comment on above: Order Comment: Speci men Type: URINE SPECIMEN Ordering Facility: [facility] Address: [address] [place] [address] Performed By: #### U TOX2 #### [facility] IA [id number] [address] [place] [address] Opiates Screen Ql (U) Negative Normal Negative [facility] Comment on above: Order Comment: Speci men Type: URINE SPECIMEN Ordering Facility: [facility] Address: [address] [place] [address] Result Comment: Cuto ff threshold at 300 ng/mL. Performed By: #### U TOX2 #### [facility] CLIA [id number] [address] [place] [address] [place] oxyCODONE cutoff Screen (U) [Mass/Vol] Negative Normal Negative [facility] Comment on above: Order Comment: Speci men Type: URINE SPECIMEN Ordering Facility: [facility] Address: [address] [place] [address] Result Comment: Cuto ff threshold at 100 ng/mL. Performed By: #### U TOX2 #### [facility] IA [id number] [address] [place] [address] Phencyclidine Ql (U) Negative Normal Negative [facility] Comment on above: Order Comment: Speci men Type: URINE SPECIMEN Ordering Facility: [facility] Address: [address] [place] [address] Result Comment: Cuto ff threshold at 25 ng/mL. Performed By: #### U TOX2 #### [facility] IA [id number] [address] [place] [address] OF [place] lamoTRIgine SerPl-mCncon lamoTRIgine [Mass/Vol] 11.4 ug/mL Normal 1.0-13.0 [facility] Comment on above: Order Comment: Speci men Type: BLOOD SPECIMEN Ordering Facility: [facility] Address: [address] [place], [place] [id number] Result Comment: This test was developed and its performance characteristics determined by [facility]'s [facility] ([facility]). It has not been cleared or approved by the FDA. [facility] is regulated under CLIA as qualified to perform high-complexity testing. This test is used for clinical purposes. It should not be regarded as investigational or for research. Performed By: #### 6 948-4 #### [facility] CLIA [id number] [address] [place] [address] [place] CBC W MANUAL DIFFon 04-11-20 19 ATYPICAL LYMPH # Normal [facility] Comment on above: Performed By: #### Lesly SANDERS #### [facility] [address] [place] [address] Pablo Deanna ATYPICAL LYMPH % Normal [facility] Comment on above: Performed By: #### Lesly SANDERS #### [facility] [address] [place] [address] Pablo Deanna BAND # 0.1 103/ul Normal 0.0-0.[address] [facility] Comment on above: Performed By: #### Lesly SANDERS #### [facility] [address] [place] [address] Pablo Deanna BAND % 1 % Normal 0-[address] [facility] Comment on above: Performed By: #### Lesly SANDERS #### [facility] [address] [place] [address] Pablo Deanna BASOM % 0.0 % Critically low 0.2-2.0 [facility] Comment on above: Performed By: #### Lesly SANEDRS #### [facility] [address] [place], [place] [id number] Pablo Deanna Basophils #/vol (Bld) 0.00 103/ul Normal 0.00-0.10 [facility] Comment on above: Performed By: #### Lesly SANDERS #### [facility] [address] [place] [address] Pablo Deanna BLAST # Normal [facility] Comment on above: Performed By: #### Lesly SANDERS #### [facility] [address] [id number] [place] Deanna BLAST % Normal [facility] Comment on above: Performed By: #### Lesly SANDERS #### [facility] [address] [place], [place] [id number] Pablo Deanna Eosinophils #/vol (Bld) 0.12 103/ul Normal 0.00-0.70 [facility] Comment on above: Performed By: #### Lesly SANDERS #### [facility] [address] [place], [place] [id number] Pablo Deanna Eosinophils/100 WBC (Bld) 2.0 % Normal 0.9-7.0 [facility] Comment on above: Performed By: #### Lesly SANDERS #### [facility] [address] [place] [address] Pablo Deanna Erythrocyte distribution width Ratio (RBC) 11.2 % Normal 11.0-15.0 [facility] Comment on above: Performed By: #### Lesly SANDERS #### [facility] [address] [place] [address] Pablo Deanna Hematocrit Volume Fraction (Bld) 42.3 % Normal 42.0-54.0 [facility] Comment on above: Performed By: #### Lesly SANDERS #### [facility] [address] [place], [place] [id number] Pablo Deanna Hemoglobin mass conc (Bld) 14.5 g/dL Normal 14.0-18.0 [facility] Comment on above: Performed By: #### Lesly SANDERS #### [facility] [address] [place] [address] Pablo Deanna Lymphocytes #/vol (Bld) 1.57 103/ul Normal 1.20-3.80 [facility] Comment on above: Performed By: #### Lesly SANDERS #### [facility] [address] [place], [place] [phone] Pablo Deanna Lymphocytes/100 WBC (Bld) 27.0 % Normal 20.5-60.0 [facility] Comment on above: Performed By: #### Lesly SANDERS #### [facility] [address] [address] Pablo Huerta MCH Entitic mass (RBC) 29.6 pg Normal 25.9-34.0 [facility] Comment on above: Performed By: #### Lesly SANDERS #### [facility] [address] [place] [address] Pablo Huerta MCHC mass conc (RBC) 34.3 g/dL Normal 29.9-35.2 [facility] Comment on above: Performed By: #### Lesly SANDERS #### [facility] [address] [place] [address] Pablo Huerta MCV Entitic volume (RBC) 86.3 fL Normal 80.0-94.[address] [facility] Comment on above: Performed By: #### Lesly SANDERS #### [facility] [address] [place] [address] Pablofranki Johnsonen METAMYELOCYTE # Normal [facility] Comment on above: Performed By: #### Lesly SANDERS #### [facility] [address] [place] [address] Pablo Deanna METAMYELOCYTE % Normal [facility] Comment on above: Performed By: #### Lesly SANDERS #### [facility] [address] [place] [address] Pablo Deanna MONOM# 0.23 103/ul Critically low 0.30-0.80 [facility] Comment on above: Performed By: #### Lesly SANDERS #### [facility] [address] [place] [address] Pablo Deanna MONOM% 4.0 % Normal 1.7-12.[address] [facility] Comment on above: Performed By: #### Lesly SANDERS #### [facility] [address] [place] [address] Pablo Deanna MYELOCYTE # Normal [facility] Comment on above: Performed By: #### Lesly SANDERS #### [facility] [address] [place] [address] Pablo Deanna MYELOCYTE % Normal [facility] Comment on above: Performed By: #### Lesly SANDERS #### [facility] [address] [id number] Pablo Deanna NRBC Normal [facility] Comment on above: Performed By: #### Lesly SANDERS #### [facility] [address] [id number] Pablo Deanna Platelet mean volume Entitic volume (Bld) 8.8 fL Critically low 9.5-13.5 [facility] Comment on above: Performed By: #### Lesly SANDERS #### [facility] [address] [id number] Pablo Deanna Platelets #/vol (Bld) 348 103/ul Normal 150-450 [facility] Comment on above: Performed By: #### Lesly SANDERS #### [facility] [address] [address] Pablo Deanna RBC #/vol (Bld) 4.90 106/ul Normal 4.70-6.10 [facility] Comment on above: Performed By: ###Trent SANDERS #### [facility] [address] [place] [address] Pablo Deanna SEG # 3.83 103/ul Normal 1.40-6.50 [facility] Comment on above: Performed By: ###Trent SANDERS #### [facility] [address] [place] [address] Pablo Deanna Segmented neutrophils/100 WBC (Bld) 66.0 % Normal 43.0-75.0 [facility] Comment on above: Performed By: ###Trent SANDERS #### [facility] [address] [id number] Pablo Deanna WBC #/vol (Bld) Normal 4.0-11.0 [facility] Comment on above: Performed By: #### Lesly SANDERS #### [facility] [address] [id number] Pablo Deanna WBC #/vol (Bld) 5.8 103/ul Normal 4.0-11.0 [facility] Comment on above: Performed By: ###Trent SANDERS #### [facility] [address] [phone] [address] HEAD WO MIRIANon 04-11-2019 CT HEAD WO CON Patient: JUANJOSE BOLDEN Exam Date: 04/11/2019 : 2000 Gender:M Ordering : DR SUMMER DUQUE M.D. Admission #: [id number] Family : Order #: [id number] CLICK HERE TO VIEW EXAM , RADIOLOGY REPORT PROCEDURE: CT HEAD WITHOUT CONTRAST COMPARISON: None. INDICATIONS: Acute seizure, history of seizures TECHNIQUE: Axial CT images were obtained without IV contrast. DOSE: 1337 mGycm FINDINGS: BRAIN: No edema, hemorrhage, mass, acute infarction, or inappropriate atrophy. CSF SPACES: No hydrocephalus, subarachnoid hemorrhage, or mass. Appropriate for age. SKULL: No fracture, mass, or other significant visible lesion. SINUSES: No significant mucosal thickening or fluid on the limited views. ORBITS: No appreciable abnormality on the limited views. OTHER: Negative CONCLUSION: Normal examination. Dictated by: Mame Allen M.D. on 04/11/2019 at 20:44 Approved by: Mame Allen M.D. on 04/11/2019 at 20:[address] [facility] PROF 14(COMP METB)on 019 Albumin mass conc 4.2 g/dL Normal 3.5-5.0 [facility] Comment on above: Performed By: #### C MP #### [facility] [address] [address] Pablofranki Huerta Albumin/Globulin mass ratio 1.1 {ratio} Normal [facility] Comment on above: Performed By: #### C MP #### [facility] [address] [id number] Pablo Deanna ALP enzyme act/vol 131 U/L Critically high 38-126 [facility] Comment on above: Performed By: #### C MP #### [facility] [address] [id number] Pablo Deanna ALT enzyme act/vol 32 U/L Normal 21-72 [facility] [place] Comment on above: Performed By: #### C MP #### [facility] [address] [phone] Pablo Deanna Anion gap molar conc 19.4 mmol/L Normal [facility] Comment on above: Performed By: #### C MP #### [facility] [address] [phone] Pablo Deanna AST enzyme act/vol 26 U/L Normal 17-59 [facility] [place] Comment on above: Performed By: #### C MP #### [facility] [address] [phone] Pablo Deanna Bilirubin Ql (U) 0.2 mg/dL Normal 0.2-1.3 [facility] Comment on above: Performed By: #### C MP #### [facility] [address] [phone] Pablo Deanna Calcium mass conc 9.3 mg/dL Normal 8.4-10.2 [facility] Comment on above: Performed By: #### C MP #### [facility] [address] [address] Pablo Deanna Chloride molar conc 103 mmol/L Normal 98-107 [facility] Comment on above: Performed By: #### C MP #### [facility] [address] [address] Pablo Deanna CO2 molar conc 23.6 mmol/L Normal 22.0-30.0 [facility] Comment on above: Performed By: #### C MP #### [facility] [address] [address] Pablo Deanna Creatinine mass conc 1.24 mg/dL Normal 0.66-1.25 [facility] Comment on above: Performed By: #### C MP #### [facility] [address] [address] Pablo Deanna EGFR-AF NICARAGUAN >60 Normal >=60 [facility] Comment on above: Performed By: #### C MP #### [facility] [address] [address] Pablo Deanna EGFR-NON AF N[place]ARAGUAN >60 Normal >=60 [facility] Comment on above: Performed By: #### C MP #### [facility] [address] [address] Pablo Deanna Globulin mass conc (S) 3.9 g/dL Normal [facility] Comment on above: Performed By: #### C MP #### [facility] [address] [address] Pablo Johnsonen Glucose mass conc 89 mg/dL Normal 74-106 [facility] Comment on above: Performed By: #### C MP #### [facility] [address] [place] [address] Pablo Deanna Potassium molar conc 4.0 mmol/L Normal 3.4-5.[address] [facility] Comment on above: Performed By: #### C MP #### [facility] [address] [place] [address] Pablo Deanna Protein mass conc 8.1 g/dL Normal 6.1-8.2 [facility] Comment on above: Performed By: #### C MP #### [facility] [address] [place] [address] Pablo Johnsonen Sodium molar conc 142 mmol/L Normal 137-145 [facility] Comment on above: Performed By: #### C MP #### [facility] [address] [place] [address] Pablofranki Johnsonen Urea nitrogen mass conc 20.0 mg/dL Critically high 6.4-19. [address] [facility] Comment on above: Performed By: #### C MP #### [facility] [address] [place] [address] Pablo Johnsonen Urea nitrogen/Creatinine mass ratio 16.1 mg/mg Normal [facility] Comment on above: Performed By: #### C MP #### [facility] [address] [place] [address] Pablo Deanna LAMOTRIGINEon 04-07-2019 Lamotrigine, Serum 10.8 ug/mL Normal 2.0-20.0 [facility] [place] Comment on above: Result Comment: This test was developed and its performance characteristics determined by [employer]. It has not been cleared or approved by the Food and Drug Administration. Detection Limit = 1.0 Performed By: #### L AMOT #### [facility] [address] [place] [address] Pablo Deanna ACETAMINOPHENon 04-05-2019 Acetaminophen mass conc <1.0 Critically low 10.1-30. [address] [facility] Comment on above: Performed By: #### S ALTORI, CMP, ACET #### [facility] [address] [place] [address] Pablo Deanna CBC AUTO DIFFon 04-05-2019 Basophils #/vol (Bld) 0.0 103/ul Normal 0.0-0.[address] [facility] Comment on above: Performed By: #### C BC #### [facility] [address] [place] [address] Pablo Deanna Basophils/100 WBC (Bld) 0.4 % Normal 0.2-2.0 [facility] Comment on above: Performed By: #### C BC #### [facility] [address] [place] [address] Pablo Deanna Eosinophils #/vol (Bld) 0.2 103/ul Normal 0.0-0.7 [facility] Comment on above: Performed By: #### C BC #### [facility] [address] [place] [address] Pablo Deanna Eosinophils/100 WBC (Bld) 2.7 % Normal 0.9-7.[address] [facility] Comment on above: Performed By: #### C BC #### [facility] [address] [place] [address] Pablofranki Huerta Erythrocyte distribution width Ratio (RBC) 11.3 % Normal 11.0-15.[address] [facility] Comment on above: Performed By: #### C BC #### [facility] [address] [place] [address] Pablo Deanna Hematocrit Volume Fraction (Bld) 45.1 % Normal 42.0-54.[address] [facility] Comment on above: Performed By: #### C BC #### [facility] [address] [place] [address] Pablo Deanna Hemoglobin mass conc (Bld) 15.0 g/dL Normal 14.0-18.[address] [facility] Comment on above: Performed By: #### C BC #### [facility] [address] [place] [address] Pablo Deanna IG # 0.01 10e3/ul Normal 0.00-0.[address] [facility] Comment on above: Performed By: #### C BC #### [facility] [address] [place], [place] [id number] Pablo Deanna IG % 0.1 % Normal 0.0-0.[address] [facility] Comment on above: Performed By: #### C BC #### [facility] [address] [place] [address] Pablo Deanna Lymphocytes #/vol (Bld) 3.0 103/ul Normal 1.2-3.8 [facility] Comment on above: Performed By: #### C BC #### [facility] [address] [place] [address] Pablo Deanna Lymphocytes/100 WBC (Bld) 43.6 % Normal 20.5-60.[address] [facility] Comment on above: Performed By: #### C BC #### [facility] [address] [place] [address] Pablofranki Huerta MANUAL DIFF REQ NO Normal [facility] Comment on above: Performed By: #### C BC #### [facility] [address] [place] [address] Pablo Deanna MCH Entitic mass (RBC) 29.0 pg Normal 25.9-34.0 [facility] Comment on above: Performed By: #### C BC #### [facility] [address] [place] [address] Pablofranki Huerta MCHC mass conc (RBC) 33.3 g/dL Normal 29.9-35.[address] [facility] Comment on above: Performed By: #### C BC #### [facility] [address] [place], [place] [id number] Pablo Deanna MCV Entitic volume (RBC) 87.2 fL Normal 80.0-94.[address] [facility] Comment on above: Performed By: #### C BC #### [facility] [address] [place] [address] Pablo Deanna Monocytes #/vol (Bld) 0.4 103/ul Normal 0.3-0.8 [facility] Comment on above: Performed By: #### C BC #### [facility] [address] [place], [place] [address] Pablo Deanna Monocytes/100 WBC (Bld) 5.2 % Normal 1.7-12.0 [facility] Comment on above: Performed By: #### C BC #### [facility] [address] [place], [place] [address] Pablo Deanna Neutrophils #/vol (Bld) 3.3 103/ul Normal 1.4-6.5 [facility] Comment on above: Performed By: #### C BC #### [facility] [address] [place], [place] [id number] Pablo Deanna Neutrophils/100 WBC (Bld) 48.0 % Normal 43.0-75.[address] [facility] Comment on above: Performed By: #### C BC #### [facility] [address] [place], [place] [phone] Pablofranki Huerta Platelet mean volume Entitic volume (Bld) 8.5 fL Critically low 9.5-13.5 [facility] Comment on above: Performed By: #### C BC #### [facility] [address] [place], [place] [phone] Pablofranki Huerta Platelets #/vol (Bld) 301 103/ul Normal 150-450 [facility] Comment on above: Performed By: #### C BC #### [facility] [address] [place], [place] [phone] Pablo Deanna RBC #/vol (Bld) 5.17 106/ul Normal 4.70-6.10 [facility] Comment on above: Performed By: #### C BC #### [facility] [address] [place] [id number] Pablo Deanna WBC #/vol (Bld) 6.9 103/ul Normal 4.0-11.0 [facility] Comment on above: Performed By: #### C BC #### [facility] [address] DRUG SCREEN RAPID (URINE)on 04-05-2019 AMP Negative Normal NEGATIVE [facility] Comment on above: Performed By: #### E RUR, DRUGRPD #### [facility] [address] [place] [address] Pablo Deanna BAR Negative Normal NEGATIVE [facility] Comment on above: Performed By: #### E RUR, DRUGRPD #### [facility] [address] [place] [address] Pablo Deanna BUP Negative Normal NEGATIVE [facility] Comment on above: Performed By: #### E RUR, DRUGRPD #### [facility] [address] [place] [address] BZO Positive Normal NEGATIVE [facility] Comment on above: Performed By: #### E RUR, DRUGRPD #### [facility] [address] [place] [address] ARUNA Negative Normal NEGATIVE [facility] Comment on above: Performed By: #### E RUR, DRUGRPD #### [facility] [address] [place] [address] CUT-OFFS SEE BELOW Normal [facility] Comment on above: Result Comment: AMP (Amphetamine): 500ng/mL, BAR (Barbituates): 200 ng/mL, BZO (Benzodiazepines): 150 ng/mL, BUP (Buprenorphine): 10 ng/mL, ARUNA (Cocaine): 150 ng/mL, mAMP (Methamphetamine): 500 ng/mL, MTD (Methadone): 200 ng/mL, OPI (Opiates): 100 ng/mL or 2000 ng/mL, OXY (Oxycodone): 100 ng/mL, PCP (Phencyclidine): 25 ng/mL, PPX (Propoxyphene): 300 ng/mL, THC (Cannabinoids): 50 ng/mL, TCA (Trycyclic Antidepressants): 300 ng/mL Performed By: #### E RUR, DRUGRPD #### [facility] [address] [place] [address] DRUG CUT HEADER DRUG CLASS TEST SYSTEM CUT-OFF CONCENTRATIONS ARE FOLLOWS: Normal [facility] Comment on above: Performed By: #### E RUR, DRUGRPD #### [facility] [address] [place] [address] Pablo Deanna mAMP Negative Normal NEGATIVE [facility] Comment on above: Performed By: #### E RUR, DRUGRPD #### [facility] [address] [place] [address] Pablo Deanna MTD Negative Normal NEGATIVE [facility] Comment on above: Performed By: #### E RUR, DRUGRPD #### [facility] [address] [place] [address] Pablo Deanna OPI Negative Normal NEGATIVE [facility] Comment on above: Performed By: #### E RUR, DRUGRPD #### [facility] [address] [place] [address] Pablo Deanna OXY Negative Normal NEGATIVE [facility] Comment on above: Performed By: #### E RUR, DRUGRPD #### [facility] [address] [place] [address] Pablo Deanna PCP Positive Normal NEGATIVE [facility] Comment on above: Performed By: #### E RUR, DRUGRPD #### [facility] [address] [place] [address] Pablo Deanna PPX Negative Normal NEGATIVE [facility] Comment on above: Performed By: #### E RUR, DRUGRPD #### [facility] [address] [place] [address] Pablo Deanna TCA Negative Normal NEGATIVE [facility] Comment on above: Performed By: #### E RUR, DRUGRPD #### [facility] [address] [place] [address] Pablo Deanna THC Negative Normal NEGATIVE [facility] Comment on above: Performed By: #### E RUR, DRUGRPD #### [facility] [address] [place] [address] Pablo Deanna ER URINE PROFILEon 9 Bilirubin mass conc Negative Normal NEGATIVE [facility] Comment on above: Performed By: #### E RUR, DRUGRPD #### [facility] [address] [place] [address] Pablo Deanna BLOOD Negative Normal NEGATIVE [facility] Comment on above: Performed By: #### E RUR, DRUGRPD #### [facility] [address] [place] [address] Pablo Deanna Clarity Nom (U) CLEAR Normal [facility] Comment on above: Performed By: #### E RUR, DRUGRPD #### [facility] [address] [place] [address] Pablo Deanna Color Nom (U) LT. YELLOW Normal YELLOW [facility] Comment on above: Performed By: #### E RUR, DRUGRPD #### [facility] [address] [place] [address] Pablo Deanna ERUAHD A micrscopic examination will be performed if indicated. Normal [facility] Comment on above: Performed By: #### E RUR, DRUGRPD #### [facility] [address] [place] [address] Pablo Deanna Glucose mass conc Negative Normal NEGATIVE [facility] Comment on above: Performed By: #### E RUR, DRUGRPD #### [facility] [address] [place] [address] Pablo Deanna Ketones Ql (U) Negative Normal NEGATIVE [facility] Comment on above: Performed By: #### E RUR, DRUGRPD #### [facility] [address] [place] [address] Pablo Deanna Nitrite Ql (U) Negative Normal NEGATIVE [facility] Comment on above: Performed By: #### E RUR, DRUGRPD #### [facility] [address] [place] [address] Pablo Deanna pH (Bld) 6.0 Normal 5-9 [facility] Comment on above: Performed By: #### E RUR, DRUGRPD #### [facility] [address] [place] [address] Pablo Deanna Protein mass conc (U) Negative Normal [facility] Comment on above: Performed By: #### E RUR, DRUGRPD #### [facility] [address] [place] [address] Pablo Huerta SPEC GRAVITY 1.020 Normal 1.005-<=1.[address] [facility] Comment on above: Performed By: #### E RUR, DRUGRPD #### [facility] [address] [place] [address] Pablo Huerta UR MICRO IND NOT INDICATED Normal [facility] Comment on above: Result Comment: Prev iously reported as: INDICATED On 04/05/2019 01:37 By MH9 Performed By: #### E RUR, DRUGRPD #### [facility] [address] [place], [place] [phone] Pablo Huerta Urobilinogen Qn (U) 0.2 EU/dl Normal [facility] Comment on above: Performed By: #### E RUR, DRUGRPD #### [facility] [address] [place] [address] Pablo Huerta WBC #/vol (Bld) Negative Normal NEGATIVE [facility] Comment on above: Performed By: #### E RUR, DRUGRPD #### [facility] [address] [place] [phone] Pablo Huerta ETHANOL (BLD ALC)on 04-05-20 19 Ethanol mass conc mg/dL Normal [facility] Comment on above: Performed By: #### E TH #### [facility] [address] [place], [place] [phone] Pablo Huerta Ethanol mass conc NOTE: 80 mg/dl is the legal limit for a blood alcohol level Normal [facility] Comment on above: Performed By: #### E TH #### [facility] [address] [place] [phone] Pablo Huerta PROF 14(COMP METB)on 019 Albumin mass conc 4.4 g/dL Normal 3.5-5.0 [facility] Comment on above: Performed By: #### S ALYC, CMP, ACET #### [facility] [address] [place] [address] Pablo Huerta Albumin/Globulin mass ratio 1.1 {ratio} Normal [facility] Comment on above: Performed By: #### S ALYC, CMP, ACET #### [facility] [address] [place] [address] Pablo Deanna ALP enzyme act/vol 153 U/L Critically high 38-126 [facility] Comment on above: Performed By: #### S ALYC, CMP, ACET #### [facility] [address] [place] [address] Pablo Deanna ALT enzyme act/vol 36 U/L Normal 21-72 [facility] [place] Comment on above: Performed By: #### S ALYC, CMP, ACET #### [facility] [address] [place] [address] Pablo Deanna Anion gap molar conc 12.1 mmol/L Normal [facility] Comment on above: Performed By: #### S ALYC, CMP, ACET #### [facility] [address] [place] [address] Pablo Deanna AST enzyme act/vol 20 U/L Normal 17-59 [facility] [place] Comment on above: Performed By: #### S ALYC, CMP, ACET #### [facility] [address] [place] [address] Pablo Deanna Bilirubin Ql (U) 0.2 mg/dL Normal 0.2-1.3 [facility] Comment on above: Performed By: #### S ALYC, CMP, ACET #### [facility] [address] [place] [address] Pablo Deanna Calcium mass conc 9.4 mg/dL Normal 8.4-10.2 [facility] Comment on above: Performed By: #### S ALYC, CMP, ACET #### [facility] [address] [place] [phone] Pablo Deanna Chloride molar conc 99 mmol/L Normal 98-107 [facility] Comment on above: Performed By: #### S ALYC, CMP, ACET #### [facility] [address] [place] [address] Pablo Deanna CO2 molar conc 32.5 mmol/L Critically high 22.0-30.[address] [facility] Comment on above: Performed By: #### S ALYC, CMP, ACET #### [facility] [address] [place] [address] Pablo Deanna Creatinine mass conc 0.90 mg/dL Normal 0.66-1.[address] [facility] Comment on above: Performed By: #### S ALYC, CMP, ACET #### [facility] [address] [place] [address] Pablo Deanna EGFR-AF NICARAGUAN >60 Normal >=60 [facility] Comment on above: Performed By: #### S ALYC, CMP, ACET #### [facility] [address] [place] [address] Pablo Deanna EGFR-NON AF NICARAGUAN >60 Normal >=[address] [facility] Comment on above: Performed By: #### S ALYC, CMP, ACET #### [facility] [address] [place] [address] Pablo Deanna Globulin mass conc (S) 4.1 g/dL Normal [facility] Comment on above: Performed By: #### S ALYC, CMP, ACET #### [facility] [address] [place] [address] Pablo Deanna Glucose mass conc 104 mg/dL Normal 74-106 [facility] Comment on above: Performed By: #### S ALYC, CMP, ACET #### [facility] [address] [place] [address] Pablo Deanna Potassium molar conc 3.6 mmol/L Normal 3.4-5.[address] [facility] Comment on above: Performed By: #### S ALYC, CMP, ACET #### [facility] [address] [place] [address] Pablo Deanna Protein mass conc 8.5 g/dL Critically high 6.1-8.2 [facility] Comment on above: Performed By: #### S ALYC, CMP, ACET #### [facility] [address] [place] [address] Pablo Deanna Sodium molar conc 140 mmol/L Normal 137-145 [facility] Comment on above: Performed By: #### S ALYC, CMP, ACET #### [facility] [address] [place], [place] [address] Pablo Huerta Urea nitrogen mass conc 20.0 mg/dL Critically high 6.4-19. [address] [facility] Comment on above: Performed By: #### S ALYC, CMP, ACET #### [facility] [address] [place], [place] [address] Pablo Huerta Urea nitrogen/Creatinine mass ratio 22.2 mg/mg Normal [facility] Comment on above: Performed By: #### S ALYC, CMP, ACET #### [facility] [address] [place], [place] [address] Pablo Huerta SALICYLATEon 04-05-2019 SALICYLATE 1.3 mg/dL Normal <=20.[address] [facility] Comment on above: Performed By: #### S ALYC, CMP, ACET #### [facility] [address] [place], [place] [address] Pablo Huerta Vital Signs Date Time Vital Sign Value Performing Clinician Faci lity 11-24-2023 09:22-0500 Body height 167.6 cm Naomi Gongora MD Work Phone: [employer] 11-24-2023 09:22-0500 Body mass index (BMI) [Ratio] 22.6 kg/m2 Naomi Gongora MD Work Phone: [employer] 11-24-2023 09:22-0500 Body weight 63.5 kg Naomi Gongora MD Work Phone: [employer] 11-24-2023 09:05-0500 Heart rate 56 /min Naomi Gongora MD Work Phone: [employer] 11-24-2023 09:05-0500 Respiratory rate 16 /min Naomi Gongora MD Work Phone: [employer] 11-24-2023 09:05-0500 SaO2% (BldA) [Mass fraction] 100 % Naomi Gongora MD Work Phone: [employer] 11-24-2023 06:00-0500 Diastolic blood pressure 55 mm[Hg] Naomi Gongora MD Work Phone: [facility] 11-24-2023 06:00-0500 Systolic blood pressure 123 mm[Hg] Naomi Gongora MD Work Phone: [facility] 11-24-2023 04:00-0500 Body temperature 98.1 [degF] Naomi Gongora MD Work Phone: [facility] 11-24-2023 00:00-0500 Diastolic blood pressure 65 mm[Hg] DO Mago Mann Work Phone: [facility] 11-24-2023 00:00-0500 Heart rate 78 /min DO Mago Mann Work Phone: [facility] 11-24-2023 00:00-0500 Respiratory rate 18 /min DO Mago Mann Work Phone: [facility] 11-24-2023 00:00-0500 SaO2% (BldA) [Mass fraction] 100 % DO Mago Mann Work Phone: [facility] 11-24-2023 00:00-0500 Systolic blood pressure 130 mm[Hg] DO Mago Mann Work Phone: [facility] 11-23-2023 22:48-0500 Body temperature 98.4 [degF] DO Mago Mann Work Phone: [facility] 11-23-2023 11:55-0500 Body height 167.64 cm DO Mago Mann Work Phone: [facility] 11-23-2023 11:55-0500 Body weight 69.5 kg DO Mago Mann Work Phone: [facility] 10-04-2022 07:08-0500 Body weight 64.41 kg Jasper Russo DO Work Phone: [facility] 10-04-2022 07:08-0500 Diastolic blood pressure 75 mm[Hg] Jasper Russo DO Work Phone: [facility] 10-04-2022 07:08-0500 Heart rate 81 /min Jasper Russo DO Work Phone: [facility] 10-04-2022 07:08-0500 SaO2% (BldA) [Mass fraction] 99 % Jasper Russo DO Work Phone: [facility] 10-04-2022 07:08-0500 Systolic blood pressure 128 mm[Hg] Jasper Benderkpatrick DO Work Phone: [facility] 03-20-2022 10:54-0400 Body height 167.6 cm Parvin Muha WOOD HEEL FINISHER.TWISTING FRAME OPERATOR Work Phone: [facility] 03-20-2022 10:54-0400 Body weight 72.12 kg Parvin Baltazar WOOD HEEL FINISHER.TWISTING FRAME OPERATOR Work Phone: [facility] 03-20-2022 10:54-0400 Diastolic blood pressure 72 mm[Hg] Parvin Sueroha WOOD HEEL FINISHER.TWISTING FRAME OPERATOR Work Phone: [facility] 03-20-2022 10:54-0400 Heart rate 97 /min Parvin Muha WOOD HEEL FINISHER.TWISTING FRAME OPERATOR Work Phone: [facility] 03-20-2022 10:54-0400 SaO2% (BldA) [Mass fraction] 97 % Parvin Sueroha WOOD HEEL FINISHER.TWISTING FRAME OPERATOR Work Phone: [facility] 03-20-2022 10:54-0400 Systolic blood pressure 110 mm[Hg] Parvin Sueroha WOOD HEEL FINISHER.TWISTING FRAME OPERATOR Work Phone: [facility] Encounters Encounter Date Encounter Type Care Provider Facility Start: 04-01-2024 Telephone encounter Jasper Hernandez [place] DO Work Phone: Family Medicine Comment on above: No Show Start: 03-24-2024 End: 03-24-2024 Refill Delmer Boudreaux PA-C Work Phone: Neurology Comment on above: Refill Request Start: 01-30-2024 Telephone encounter Stacia davis MD, PhD Work Phone: Neurology Comment on above: Forms (bmv) Start: 11-26-2023 End: 11-26-2023 ambulatory Stacia Hightower MD, PhD Work Phone: Neurology Comment on above: 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) Start: 11-26-2023 End: 11-26-2023 Telemedicine consultation with patient Stacia Hightower MD, PhD Work Phone: [facility] Start: 11-24-2023 End: 11-24-2023 Emergency department patient visit MAGO MANN Facility:[facility] Start: 11-24-2023 End: 11-24-2023 Emergency department patient visit Naomi Gongora MD Work Phone: [facility] Emergency [facility] Start: 11-23-2023 End: 11-24-2023 Emergency department patient visit NON STAFF Facility:[facility] Start: 11-23-2023 End: 11-24-2023 Emergency department patient visit DO Mago Mann Work Phone: [facility] Work Phone: Start: 09-09-2023 Refill Edith Mary PRN.CNP Work Phone: Neurology Comment on above: Refill Request Med Change Request Start: 04-29-2023 Telephone encounter Jasper Russo DO Work Phone: Family Medicine Comment on above: Forms ([place] [facility] Physical Exam Health Release Form) Start: 04-01-2023 Patient encounter procedure Alyssia King PA-C Work Phone: Family Medicine Comment on above: Subclinical hypothyr oidism (Primary Dx) Start: 03-31-2023 Patient encounter status Enrrique King PA-C Work Phone: [facility] Work Phone: Start: 01-23-2023 ambulatory Alice Reardon [facility] [place] Comment on above: Population Health Na vigation Outreach ( Pool) Start: 01-22-2023 Telephone encounter Jasper uRsso DO Work Phone: Family Medicine Comment on above: Patient Question Start: 01-20-2023 ambulatory Karina Mercado [facility] [place] Comment on above: Population Health Na vigation Outreach (Community Monitoring Pool) Start: 01-20-2023 Telephone encounter Jasper Russo DO Work Phone: Family Medicine Comment on above: Appointment Start: 01-17-2023 Patient Outreach Chanda Alcaraz RN [employer] Management Comment on above: Transition Of Care ( TCM initial outreach hospital discharge 01/16/23) Start: 01-15-2023 End: 01-16-2023 ambulatory Kerry LONGOSHEKHAR Facility:[facility] Start: 11-22-2022 Telephone encounter Stacia davis MD, PhD Work Phone: Neurology Comment on above: Forms (BMV) Start: 11-20-2022 End: 11-20-2022 ambulatory Stacia Hightower MD, PhD Work Phone: Neurology Comment on above: 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, intractable (HCC) (Primary Dx) Start: 11-20-2022 End: 11-20-2022 Telemedicine consultation with patient Stacia Hightower MD, PhD Work Phone: [facility] Start: 10-04-2022 End: 10-04-2022 Office outpatient visit 15 minutes Jasper Russo DO Work Phone: Family Medicine Comment on above: Hospital discharge f ollow-up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 in 24 hours.) for up to 180 days. No current facility-administered medications for this visit. ALLERGIES Allergen Reactions Fx Hx Of Penicillin* Unknown Trileptal [Oxcarbaz* Hives PAST MEDICAL HISTORY Diagnosis Date Attention deficit disorder (ADD) without hyperactivity Drug side effects, initial encounter 07/15/2018 Elevated cholesterol Epilepsy (HCC) Other infants, unspecified (weight)(765.10) 34 weeks; intubated x 1-2 days; 2 weeks in NICU; [facility] No past surgical history on file. FAMILY HISTORY Problem Relation Age of Onset Hypertension Mother Lung Cancer Maternal Grandfather No Known Problems Paternal Grandmother No Known Problems Paternal Grandfather SOCIAL HISTORY: -Lives in [place], [place] Social History Tobacco Use Smoking status: Former Packs/day: 0.50 Years: 5.00 Pack years: 2.50 Types: Cigarettes Quit date: 2020 Years since quittin.0 Smokeless tobacco: Never Substance Use Topics Alcohol use: Not Currently Drug use: Yes Types: Marijuana Comment: smoking & tinctures Review of Systems All other systems reviewed and are negative. Neurological Exam Mental Status Alert, fully oriented, attentive, with normal cognition, memory, speech and affect. Cranial Nerves Extraocular movements normal. No nystagmus, no ptosis, and pupils equal. Face symmetrical. Tongue normal. Reflexes Deep tendon reflexes graded by [facility] IMPRESSION: 22 year old focal epilepsy, stable, no seizures Interval Impression: Doing well. The patient's compliance with therapy has been: Excellent PLAN: Data reviewed as above including: electronic medical record Testing Ordered none Education Patient was given my clinic contact information. It is reasonable for the patient to continue driving based on good compliance with antiseizure medication and current seizure control. Medical Management Continue current medications. Prescriptions sent to pharmacy. will update BMV to be okay to drive with 1 year review The possibility of serious and adverse reactions were discussed in detail as well as proper use of medication. I discussed that not taking this medication as directed could worsen seizures and can be dangerous. I discussed the risks, benefits and alternatives of the medical plan with the patient. Questions were answered. The patient agreed with the plan as discussed. FOLLOW-UP: Return in about 9 months (around 08/20/2023). I spent a total of 20 minutes on the date of the service which included: preparing to see the patient [id number] patient care completing clinical documentation obtaining and/or reviewing separately obtained history counseling and educating the patient/family/caregiver Stacia Hightower MD, PhD cc: Primary Care Physician: [place] [id number] [facility] [id number] Referring: Stacia Hightower [address] [facility] [address] Patient: Mr. Juanjose Bolden [address] [address] documented in this encounter [facility] 10-04-2022 History of Present illness Narrative [facility] Follow-Up Juanjose Bolden Age: [age] year old : 2000 Patient presents with: Hospital F/U: Transitional Care Management TCM Eligibility Documentation The following information was gathered during the initial Patient Outreach Encounter. Date of Outreach: 09/20/2022 Outreach Attempt 1: Contact Made Date of Discharge 09/19/2022 Some recent data might be hidden Discharge diagnosis: Epilepsy Discharge medication list reconciliation completed: Yes HISTORY OF PRESENT ILLNESS Juanjose Bolden is a 22 year old male patient who presents today for hospital follow-up. Pt was admitted by neurology to assess seizure burden. EEG monitoring was done & medications were adjusted. Also uses cannabis to help control seizures - smoking & tinctures. No concerns today except for concerns about work shift. Works at [employer]. Shift was changed to come in at 6 am. 10 hour shifts. Pt unable to do so due to sleep disruption. Concerned it could cause seizures. Social History Tobacco Use Smoking status: Former Packs/day: 0.50 Years: 5.00 Pack years: 2.50 Types: Cigarettes Quit date: 2020 Years since quittin.9 Smokeless tobacco: Never Substance Use Topics Alcohol use: Not Currently Drug use: Yes Types: Marijuana Comment: smoking & tinctures REVIEW OF SYSTEMS Review of Systems Neurological: Negative for seizures and syncope. OBJECTIVE BP 128/75 Pulse 81 Wt 64.4 kg (142 lb) SpO2 99% BMI 22.92 kg/m Last BP 10/04/22 : 128/75 09/19/22 : 126/74 09/02/22 : 119/74 04/15/22 : 143/72 Physical Exam Constitutional: General: He is not in acute distress. HENT: Head: Normocephalic and atraumatic. Eyes: General: No scleral icterus. Conjunctiva/sclera: Conjunctivae normal. Neurological: General: No focal deficit present. Mental Status: He is alert. Psychiatric: Mood and Affect: Mood and affect normal. Speech: Speech is delayed. Behavior: Behavior is slowed. ASSESSMENT 1. Hospital discharge follow-up - ICD9: V67.59, ICD10: Z09 (primary diagnosis) 2. Partial epilepsy with impairment of consciousness, intractable (HCC) - ICD9: 345.41, ICD10: G40.219 3. Cannabis dependence (HCC) - ICD9: 304.30, ICD10: F12.20 PLAN Continue current plan of care & f/u with neurology as scheduled. Work note given. Call with any problems. Return in about 6 months (around 04/04/2023) for nonfasting annual, or sooner if needed. No orders of the defined types were placed in this encounter. This note was created either in full or in part with the assistance of [employer] speech recognition software and as such may contain grammatical or typographical errors. Jasper Russo DO documented in this encounter [facility] 09-18-2022 History of Present illness Narrative DATE:September 18, 2022 PT. NAME: Juanjose Bolden [facility] [id number] IRB #: [id number] PROTOCOL: Epilepsy mechanisms and outcomes biospecimen bank: data registry. Conveyancer: Patricia Jacobsen, PhD. [facility] contact center analyst for study related questions: Karina Barahona Subject continues to give consent for participation and for procedures related to study YES. Were there changes made to the informed consent since the last visit? NO. If yes, were changes reviewed and explained to subject? N/A Was a new copy of the informed consent signed, placed in the chart, placed in the study file and was a copy given to the patient? N/A Subject ID Band in place. yes Time: 11:00AM Blood drawn with vacutainer and labs drawn per protocol. Butterfly removed after blood draw and secured with sterile gauze. Patient tolerated procedure well. Sheryl Law, Research Coordinator documented in this encounter [facility] 09-02-2022 Note HNO ID: [id number] Author: Edith Delcid APRN.TWISTING FRAME OPERATOR Service: ? 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 He presents for routine follow up regarding seizures. He is a patient of Dr. Stacia Hightower, last seen by myself on 04/15/2022. Today, patient states he has not had any seizures at all since last office visit. He does tell me that he has been self-medicating with daily marijuana . When asked about any MARINO episodes, he states obviously you lose time when you're smoking pot but no seizures . He has stopped tracking seizures, as he states he got a new phone. At [facility], he inquired on surgical options for epilepsy but today he states he is no longer interested in epilepsy surgery evaluation. He is taking LTG 200/200/400 and ZNS 200 mg qHS. Denies missed doses. Takes them at 7AM, 12PM and 9PM. He has a new job at [employer], works on an [employer]. Does that four days per week. 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 Also in school at [employer] one day day per week. He quit smoking cigarettes since [facility], relates to financial concerns. He lives by himself. He is still driving. Office visit 03/2022: He called the office 02/08/2022, reported seizure 01/24/2022 that he went to ER for. He reported side effects to LTG, plan was to start ZNS 200 mg qHS, with plan to eventually wean LTG. Today, patient states he is having partial seizures ~ 1-3 times per month. Last full blown seizure was 01/24/2022. Last partial was ~ 2 weeks ago. Describes seizures as follows: a funny tickle in your brain than I start getting anxious and nervous. Then I take CBD oil and smoke some bud and it might stop. But if I don't smoke in time, I start getting small twitches in my hands and face . This may then cluster and progress to MARINO w/ GTC AND +TB and +UI. He is taking LTG 200/200/400 and ZNS 100 mg qHS. Takes ASM at 7am, 12pm and 9 pm. Never misses doses. He does state that he has been taking an extra LTG with onset of auras. States if he takes ASM without eating, he may experience double vision, but as long as he eats with ASM, no side effects. States he has been smoking tobacco and marijuana since age 12. He is trying to stop smoking tobacco. Does not drink alcohol. Lives by himself. He is still driving, but is aware that he should not be until 6 months seizure-free. 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 He plans to go to school to learn about medical marijuana. Wants to work in a dispensary. He asks if he is a candidate for VNS or RNS. States he has bad ADHD. Asks for a medication to help. He will discuss with his PCP. 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 Post central sulcus seems to show similar findings albeit much less prominently. 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 Surgical options are complex in view of the kamala-rolandic location, extent of malformation and baseline normal motor sensory exam. A complete resection of the malformation will likely result in permanent right body motor and sensory deficits. Exploratory stereo EEG may be an option to see if the epileptogenic zone involves a smaller portion of this malformation, perhaps anterior to the motor cortex, where a small tailored resection could be feasible. It is possible that even SEEG exploration may not provide a clear plan for resection and even if it does, the epileptogenic zone may include functional regions and hence no resection is feasible. Functional language and motor MRI was suggested prior to the SEEG. I will be meeting with the family in the next week to go over the benefits/risks of SEEG/surgical option vs. medical treatment. We will proceed according to their wishes. ? CURRENT OUTPATIENT MEDICATIONS: Current Outpatient Medications Medication Sig lamoTRIgine (LAMICTAL) 200 mg tablet Take 1 tablet by mouth every morning AND 1 tablet every afternoon AND 2 tablets every evening. zonisamide (ZONEGRAN) 100 mg capsule Take 2 capsules by mouth daily at bedtime. clonazePAM (KLONOPIN) 0.5 mg tablet Take 1 tablet by mouth as needed (for motor seizure lasting > 3 minutes OR for auras to prevent clustering. Max 2 (more content not included)... [facility] 03-20-2022 Instructions Parvin Baltazar APRN.[facility] - 03/20/2022 11:22 AM EDT `Encouraged hydration with water. At least 80-100 ounces of water per day. `Encourage a high fiber diet; education provided to patient. `Can use topical preparation H for hemorrhoids. HIGH FIBER DIET Principle of diet: Food which contain a large amount of indigestible material contribute bulk to the large intestine and promote bowel movement. This list contains foods which you should encourage your child to eat and foods which should be consumed in limited quantity. It is very important when your child is on a high fiber diet that increased fluids are consumed as this is also an important part of overall treatment. Food Group Foods to Encourage Foods to Limit Beverages All Those with high sugar content: Kevin-Aid, Hi-C Breads Breads,crackers, breads made from 100% whole wheat or whole rye,grahm,wheat or rye crackers White bread or crackers Cereals Brain or whole grain cerals Non-whole grain cereals, sugar coated. Desserts Any especially fresh fruits and nuts Those high in sugar Eggs Any form None Vegetables All, especially raw. Three or more servings daily. None Fruits and juices All especially dried or fresh. Three or more servings daily None Meats, fish, poultry All None Cheese All None Potatoes and starches Baked with skin, sweet potatoes, yams, brown or wild rice White rice, spaghetti, macaroni noodles. Soups Roque, vegetable, chili None RICE Brown, cooked 1 cup 2.0 White, cooked 1 cup 1.0 FRUITS Apple, raw, with skin I large 8.0 Raspberries 1 cup 5.8 Blueberries, raw 1 cup 4.4 Pear, raw 1 medium 4.1 Prunes, dried 6 large 3.6 Raisins 1/2 cup 3.2 Rodman 1 medium 3.1 Strawberries, raw 1 cup 2.8 Grapes with skin 1 cup 2.6 Pear, canned or packed 1 cup 2.3 Cherries, frozen or raw 10 1.1 [place], raw 1 cup 0.5 Watermelon, raw 1 cup 0.3 VEGETABLES Beans, bakes 1/2 cup 10.9 Peas, green, frozen, canned 1/2 cup 5.2 Beans,red,kidney 1/2 cup 4.8 [place], sweet 1-4 cob 4.7 Broccoli, steamed 2/3 cup 4.1 Potato, sweet or baked 1 small 4.0 Potato chips 15 3.6 Potato, white, raw 1 small 3.5 Squash,baked, winter 1/2 cup 3.5 Popcorn 31/2 cup 3.5 [place], sweet, canned 1/2 cup 3.2 Potato, thai fried 20 3.2 Zucchini squash 1/2 cup 2.2 Carrots, cooked /2 cup 2.2 [place] sprouts /2 cup 2.0 Cabbage cooked 1/2 cup 1.8 Beans, green, waxed /2 cup 1.7 Beets, cooked /2 cup 1.5 Beans, dougherty /2 cup 1.4 Cauliflower /2 cup 1.13 NUTS AND SEEDS Russell seeds 2.oz 8.1 Peanuts 4 tbsp. 5.6 Peanutbutter, smooth 2 tbsp. 2.6 documented in this encounter [facility] 03-20-2022 History of Present illness Narrative SUBJECTIVE: Chief Complaint: Juanjose Bolden is a 22 year old male who presents for comprehensive problem evaluation. New concerns today: physical for school/IEP. 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 Family: Lives alone. Exercise: Work is exercise. Diet: Regular diet. Does try to eat healthy, but will eat bad when with peers. Alcohol: no. Smoking: occasionally smokes cigarettes. Last vision exam: n/a. Last dental exam: due. Epilepsy: He follows with Dr. Hightower for epilepsy. His last seizure was about 1 month ago. He denies concerns about his medication. Depression: He was previously on prozac, but stopped all medication. He did not feel this was helpful. Denies interest in talk therapy or counseling. Blood in his stool: He has been experiencing blood in his stool for an unknown amount of time. He reports occasional constipation. He does strain to have a bowel movement. He describes this a small amount in the toilet bowl and when he wipes. Denies black stools. He does sometimes have pain after a bowel movement. He has a bowel movement daily, but does have to push. REVIEW OF SYSTEMS: General: Denies fever, chills, night sweats, or changes in weight. Dermatologic: Denies any new skin conditions, rashes or changing moles. Eyes: Denies recent visual changes. ENT: Denies hearing loss or tinnitus Respiratory: Denies any cough, dyspnea, or wheezing. Cardiovascular: Denies any chest pain with exertion or at rest, palpitations, syncope, or edema. Gastrointestinal: Denies any nausea, vomiting, abdominal pain, heartburn, changes in bowel habit, Denies any rectal bleeding. Genitourinary: Denies Denies problems with urinary stream., Denies dysuria, frequency, urgency, incontinence, erectile dysfunction, hematuria and nocturia. Musculoskeletal: Denies any joint swelling, crepitus, joint pain, or loss of range of motion., Denies back pain. Neurologic: Epilepsy. Psychiatric: History of depression, declines medications or therapy. Hematologic/Lymphatic/Immunolog ic: Denies anemia, bruising, bleeding abnormalities. Endocrine: Denies any heat or cold intolerance, polyuria or polydipsia. OBJECTIVE: PHYSICAL EXAMINATION: BP 110/72 Pulse 97 Ht 167.6 cm (5' 5.98 ) Wt 72.1 kg (159 lb) SpO2 97% BMI 25.68 kg/m GENERAL APPEARANCE Well appearing, alert, in no acute distress, well-hydrated, well nourished. SKIN: Skin color, texture, turgor normal, no suspicious rashes or lesions HEAD: No significant findings. EYES: PERRLA, EOMI EARS: External ears normal, canals clear NOSE/SINUSES: Nares normal. Septum midline. OROPHARYNX: Lips, mucosa, and tongue normal, teeth and gums normal and oropharynx normal. NECK: Supple, full range of motion, no lymphadenopathy, normal thyroid and no carotid bruits BACK: Back symmetric, Normal curvature, ROM normal LUNGS: normal pulmonary exam and clear to auscultation HEART: Normal PMI, Regular rate and rhythm, Normal heart sounds, S1 and S2 and No murmurs. ABDOMEN: Soft, Non-tender, No palpable masses, Normal bowel sounds and No hepatosplenomegaly. EXTREMTIES: extremities normal, no deformities, no skin discoloration, no edema, normal pulses bilaterally. NEURO: Awake, alert and oriented x 3, Cranial nerves II-XII grossly intact, Normal gait, No involuntary motions., muscle tone normal, muscle strength normal GENITALIA: Exam deferred RECTAL: Exam deferred ASSESSMENT/PLAN: 1. (Z00.00) Routine physical examination \ `Discussed healthy lifestyle choices by diet and exercise. `Reviewed health maintenance with patient. `Discussed importance of routine dental and vision exams. 2. (Z23) Encounter for immunization `PNEUMOCOCCAL VACCINE (PREVNAR 20), `MENINGOCOCCAL GROUP B VACCINE 2 DOSE 3. (F33.0) Major depressive disorder, recurrent episode, mild (HCC) `Stable. `Declines medications/talk therapy at this time. 4. (G40.219) Partial epilepsy with impairment of consciousness, intractable (HCC) `Stable. `Continue follow up with Dr. Hightower as scheduled. `Letter written for school to accommodate learning disability. 5. 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 `Continue follow up with Dr. Hightower as scheduled. `Letter written for school to accommodate learning disability. 6. (K59.00) Acute constipation `Suspect as cause of blood in stool. `Encouraged hydration with water. At least 80-100 ounces of water per day. `Encourage a high fiber diet; education provided to patient. `Can use topical preparation H for hemorrhoids. 7. (E66.3) Overweight (BMI 25.0-29.9) `Find a diet that suits you, that you are able to follow. `150+ minutes of cardiovascular exercise each week . (About 30 minutes x 5 days/week). `Minimize stress. `Encouarged adequate sleep. `Encouraged hydration 60-80 ounces of water per day. Follow up in 1 year for non-fasting annual, sooner as needed. Parvin Baltazar APRN.MARGUERITE documented in this encounter [facility] 02-15-2022 Miscellaneous Notes Spoke with [facility] KLP processed through [facility] is preparing Alyssia Jalloh The following approved medication requests have been transmitted electronically. Signed Prescriptions Disp Refills clonazePAM (KLONOPIN) 0.5 mg tablet 10 tablet 1 Sig: Take 1 tab for motor seizure lasting > 3 minute or if having auras. Do not take more then twice per day. ZAIRE Class: C-IV Authorizing Provider: YOCASTA RAMOS PA-C PDMP website checked and validated. All prescriptions have been APPROPRIATELY filled. No suspicious activity was identified. 02/15/2022 by Yocasta Ramos PA-C routed for review will need KLP tablet form sent in as rescue medication Appeal denied Alyssia Jalloh Received denial for [facility] from Clonazepam. Forwarded to nurse for review. Uploaded to [employer]. JUANJOSE BOLDEN Last: [id number] TRAMAINE Rx #: [id number] help? Call us at Outcome Deniedon February 09 Denied request. A notification with additional details has been faxed to your office. Call placed to [facility] since nothing was faxed/scanned into his chart to see why denied told to call [facility] medicaid call placed to [facility] spoke with pharmacy denial is because he needs to fail a 30 day trial of the tablet use. will start an appeal process/being transferred over to provider services [facility] has transferred me to several different areas to try and process the expedited appeal Appeal faxed and marked as urgent to [phone] and result OK determination pending Alyssia Jalloh TRAMAINE [place] in [facility] JUANJOSE YUAN (Last: BJHRYWPP) [id number] clonazePAM 0.5MG dispersible tablets Status: PA Request Created: February 08, 2022 Sent: February 08, 2022 Open ===== determination pending Alyssia Jalloh Prior Authorization Needed: Received by: Fax Requested by (pharmacy name): [facility]( [facility]) Phone number: [phone] Name of medication: Clonazepam Strength and dosage: 0.5mg Insurance company name and phone #: [facility] Patient ID: [id number] Patient of Dr. Hightower documented in this encounter [facility] 02-12-2022 Miscellaneous Notes Patient's request for medication is as follows: Signed Prescriptions Disp Refills zonisamide (ZONEGRAN) 100 mg capsule 60 capsule 5 Sig: Take one pill at bedtime for 2 weeks. Then take two pills at bedtime. Continue with this dose. Authorizing Provider: LATISHA SHIPLEY Approved the above prescription and sent electronically to [facility]. Latisha Shipley APRN.TWISTING FRAME OPERATOR documented in this encounter [facility] 02-08-2022 Miscellaneous Notes Spoke with Juanjose. 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 Bruises/cuts. Taken to ED 01/24/22. LTG level was 11.4. LTG dose [id number]. Had been having auras of weird feeling/tickle in his head at least 1 per week. He walks around when he has these. No rescue meds. Reports side effects from LTG as fatigue, cognitively slow. Living on his own. Drives. No ETOH and has stopped vaping. Would like to try another medication so he can continue to work/drive. He was told not to drive for risk of having a seizure. He thinks he has only been on LTG. Latisha Shipley APRN.TWISTING FRAME OPERATOR [facility] checked and approved. Patient's request for medication is as follows: Signed Prescriptions Disp Refills clonazePAM orally disintegrating (KLONOPIN WAFER) 0.5 mg disintegrating tablet 10 tablet 1 Sig: Take 1 tab for motor seizure lasting > 3 minute or if having auras. Do not take more then twice per day. ZAIRE Class: C-IV JERARDO: No Authorizing Provider: LATISHA SHIPLEY Approved the above prescription and sent electronically to his pharmacy. Latisha Shipley APRN.TWISTING FRAME OPERATOR 08/28/2021 VV Latisha Shipley CNP ASSESSMENT: Juanjose Bolden is a 21 year old RH male with history of seizures. Had auras in late summer/early Fall. Increased his LTG dose. None since then. No side effects. Motivated to take his meds for adherence and being able to work and drive. BMV form sent in to office. Levels are high but not complaining. Continue with plan for now. PLAN: - LABS: none - Medications: -continue with LTG 200mg, 1-1/2-1/2-2 per day. -continue with KLP for rescue if needed for seizures -continue with all other medications - Follow all seizure precautions. - No driving if having active seizures or auras. - Consults: none - Follow up: six months with Dr. Hightower or [facility]. LT m/200/400 CZP: 0.5 mg: Rescue Spoke with Juanjose Tired of feeling tired and not remembering shit States not worse than usual but is tired of feeling like this and would like to discuss a medication change if possible. We dicussed the need for OV or VV/he figured that and has appointment in March. He now lives in [place], close to [facility] if labs will be needed. routed for review Alyssia Jalloh Medication Concern Person Calling Juanjose Bolden Name of medication LAMICTAL Concern with medication Pt stating hes having short term memory lost, very tired. Want to have a substitute med Patient of Dr. 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
[2024-04-11 16:54] VITALS: BP 135/70; PULSE 97; TEMP 36.8; O2SAT 97; BMI 23.8
--- NOTE | 2024-04-11 19:25 | ED.MALEGU1 ---
HPI - Male Genitourinary General Chief complaint: Urogenital-Male Stated complaint: STD check Time Seen by Provider: 04/11/24 19:24 Source: patient Mode of arrival: walk-in History of Present Illness HPI Narrative: patient states he has unprotected sex with female the day before her wedding 04/01. 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 Patient has no symptoms. No discharge, dysuria or hematuria. no genital lesions or abdominal pain. He is asymptomatic Related Data Home Medications ?Medication ?Instructions ?Recorded ?Confirmed lamotrigine 200 mg tablet 400 mg PO Q12H 10/04/23 04/11/24 Allergies Allergy/AdvReac Type Severity Reaction Status Date / Time poison romero extract Allergy Severe Verified 10/04/23 10:29 Penicillins AdvReac Severe Verified 08/07/23 10:03 Review of Systems ROS Status of ROS 10 or more systems reviewed and unremarkable except as noted in history and below PFSH PFS Social History Smoking status: Heavy tobacco smoker Exam Constitutional Vital Signs, click to edit/add: Last Vital Signs Temp 98.2 F 04/11/24 16:54 Pulse 97 H 04/11/24 16:54 Resp 16 04/11/24 16:54 BP 135/70 04/11/24 16:54 Pulse Ox 97 04/11/24 16:54 O2 Del Method Room Air 04/11/24 16:54 Common normals: no apparent distress, average body habitus, oriented x3, no limitations, healthy appearing, alert and well nourished [facility] Common normals: normocephalic and head/scalp atraumatic Eye Common normals: EOMs intact bilaterally Respiratory Common normals: normal respiratory effort, no retractions, no use of accessory muscles and clear to auscultation bilaterally Cardio Common normals: regular rate, regular rhythm, S1 normal heart sound and S2 normal heart sound GI Common normals: Normal to inspection, nondistended, normoactive bowel sounds present, soft to palpation and non-tender Extremity Common normals: normal to inspection and full ROM Neuro Common normals: oriented x3, CN's II-XII intact bilaterally, moves all extremities and no focal motor deficits Psych Appearance: grossly normal Course Vital Signs Vital signs: Vital Signs Temperature 98.2 F 04/11/24 16:54 Pulse Rate 97 H 04/11/24 16:54 Respiratory Rate 16 04/11/24 16:54 Blood Pressure 135/70 04/11/24 16:54 Pulse Oximetry 97 04/11/24 16:54 Oxygen Delivery Method Room Air 04/11/24 16:54 Temperature 98.2 F 04/11/24 16:54 Pulse Rate 97 H 04/11/24 16:54 Respiratory Rate 16 04/11/24 16:54 Blood Pressure 135/70 04/11/24 16:54 Pulse Oximetry 97 04/11/24 16:54 Oxygen Delivery Method Room Air 04/11/24 16:54 MDM - Male Genitourinary MDM Narrative Medical decision making narrative: patient presents concerned about possible STD exposure because he had unprotected sex with the bride the day before her wedding 04/01/24. He has no symptoms but his instructor insist he get checked otherwise he will not spar with him because the instructor feels he likely has an STD. Patient informed he likely does not have an STD given his history of no symptoms or penile discharge. urine sent for GC and chlamydia and patient discharged home Discharge Plan Discharge Stand Alone Forms: Portal Instructions Chief Complaint: Urogenital-Male Clinical Impression: Exposure to STD Patient Disposition: Home, Self-Care Prescriptions / Home Meds: No Action lamotrigine 200 mg tablet 400 mg PO Q12H Print Language: Vietnamese Instructions: Sexually Transmitted Diseases (ED), Male Condom Use (ED) Referrals: Physician,Non-Staff, MD [Primary Care Provider] - 1 week
[2024-04-11 19:40] VITALS: BP 150/81; PULSE 85; O2SAT 100
== END 2024-04-11 19:43 | disposition home or self-care (01) ==
PROVIDERS: Emergency Provider Internal Medicine
DX: Z20.2 Contact with and (suspected) exposure to infections with a predominantly sexual mode of transmission (principal); F17.200 Nicotine dependence, unspecified, uncomplicated
CPT/HCPCS: 87491; 87591; 99283

== ENCOUNTER 2024-06-06 20:35 | Emergency (ER) | payer OTHER, SELFPAY ==
[2024-06-06 20:36] VITALS: BP 136/64; PULSE 113; TEMP 36.8; O2SAT 99
--- NOTE | 2024-06-06 20:38 | ECG_ITS ---
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
--- NOTE | 2024-06-06 20:40 | ED_ITS ---
HPI - Seizure General Chief Complaint: Seizure Stated Complaint: SEIZURE Time Seen by Provider: 06/06/24 20:38 Source: medical record Mode of arrival: ambulance History of Present Illness HPI Narrative: 24-year-old male presents after having had a seizure. He was at work when he had the seizure. He was able to tell the paramedics that he has a history of seizures and that he did not take his antiseizure medications today. Upon arrival he is postictal and he had received 2.5 mg of IV Versed. No further history is initially obtainable. No history of trauma. Related Data Home Medications ?Medication ?Instructions ?Recorded ?Confirmed lamotrigine 200 mg tablet 400 mg PO Q12H 10/04/23 04/11/24 Allergies Allergy/AdvReac Type Severity Reaction Status Date / Time poison romero extract Allergy Severe Verified 10/04/23 10:29 Penicillins AdvReac Severe Verified 08/07/23 10:03 Review of Systems ROS Narrative Not obtainable, postictal PFSH PFSH Social History Smoking status: Heavy tobacco smoker Exam Narrative Exam Narrative: Nurses note and vital signs reviewed and patient is not hypoxic. General: The patient appears in no apparent distress. He appears postictal, somewhat drowsy but opens his eyes and makes eye contact when his name is called out. Skin: Warm, dry, no pallor noted. There is no rash noted. Head: Normocephalic, atraumatic Eye: Normal conjunctiva, no drainage, EOMI. PERRL Ears, Nose, Mouth, and Throat: oral mucosa is moist. Nares patent. Cardiovascular: Regular Rate and Rhythm Respiratory: Patient is in no distress, no accessory muscle use, lungs are clear to auscultation, no wheezing, rales or rhonchi Back: non-tender GI: Soft and nontender Musculoskeletal: The patient has no evidence of calf tenderness, no pitting edema, symmetrical pulses noted bilaterally Neurological: Initially drowsy, postictal, opens eyes and makes eye contact. Psychiatric: Not uncooperative Constitutional Vital Signs, click to edit/add: Last Vital Signs Temp 98.3 F 06/06/24 20:36 Pulse 103 H 06/06/24 21:00 Resp 16 06/06/24 21:00 BP 137/73 06/06/24 21:00 Pulse Ox 99 06/06/24 21:00 O2 Del Method Room Air 06/06/24 20:36 Course Vital Signs Vital signs: Vital Signs Temperature 98.3 F 06/06/24 20:36 Pulse Rate 113 H 06/06/24 20:36 Respiratory Rate 18 06/06/24 20:36 Blood Pressure 136/64 06/06/24 20:36 Pulse Oximetry 99 06/06/24 20:36 Oxygen Delivery Method Room Air 06/06/24 20:36 Temperature 98.3 F 06/06/24 20:36 Pulse Rate 103 H 06/06/24 21:00 Respiratory Rate 16 06/06/24 21:00 Blood Pressure 137/73 06/06/24 21:00 Pulse Oximetry 99 06/06/24 21:00 Oxygen Delivery Method Room Air 06/06/24 20:36 MDM - Seizure MDM Narrative Medical decision making narrative: The patient did not take his antiseizure medications today. He has been home and will be able to take them when he gets home. He is now fully awake alert and oriented and is going home with his family. Findings were discussed thoroughly. Differential Diagnosis Differential diagnosis: Likely generalized seizure and epileptic seizure Lab Data Attestation: I reviewed the patient's lab results. Labs: Lab Results 06/06/24 Range/Units 20:46 WBC 7.5 (4.0-11.0) 10^3/uL RBC 4.63 L (4.70-6.10) 10^6/uL Hgb 14.4 (14.0-18.0) g/dL Hct 44.9 (42.0-54.0) % MCV 97.0 H (80.0-94.0) fL MCH 31.1 (25.9-34.0) pg MCHC 32.1 (29.9-35.2) g/dL RDW 11.1 (11.0-15.0) % Plt Count 303 (150-450) 10^3/uL MPV 9.1 L (9.5-13.5) fL Neut % (Auto) 42.0 L (43.0-75.0) % Lymph % (Auto) 47.7 (20.5-60.0) % [place] % (Auto) 6.6 (1.7-12.0) % Eos % (Auto) 2.8 (0.9-7.0) % Baso % (Auto) 0.4 (0.2-2.0) % Neut # (Auto) 3.2 (1.4-6.5) 10^3/uL Lymph # (Auto) 3.6 (1.2-3.8) 10^3/uL [place] # (Auto) 0.5 (0.3-0.8) 10^3/uL Eos # (Auto) 0.2 (0.0-0.7) 10^3/uL Baso # (Auto) 0.0 (0.0-0.1) 10^3/uL Abs Immat Gran (auto) 0.04 H (0.00-0.03) 10^3/uL Imm/Tot Granulo (auto) 0.5 (0.0-0.5) % Sodium 138 (136-145) mmol/L Potassium 3.7 (3.5-5.1) mmol/L Chloride 99 (98-107) mmol/L Carbon Dioxide 14.4 L (21.0-32.0) mmol/L Anion Gap 28.3 BUN 22.0 H (7.0-18.0) mg/dL Creatinine 1.34 H (0.70-1.30) mg/dL Est GFR ( Amer) >60 (>=60) Est GFR (Non-Af Amer) >60 (>=60) BUN/Creatinine Ratio 16.4 Glucose 77 (74-106) mg/dL Calcium 8.8 (8.5-10.1) mg/dL ECG Data Attestation: I personally reviewed and interpreted this ECG as follows: (EKG on my interpretation shows sinus rhythm with a rate of 104.) Discharge Plan Discharge Stand Alone Forms: Portal Instructions Chief Complaint: Seizure Clinical Impression: Generalized seizure Patient Disposition: Home, Self-Care Time of Disposition Decision: 22:00 Condition: Good Mode of Transportation: Private Vehicle Prescriptions / Home Meds: No Action lamotrigine 200 mg tablet 400 mg PO Q12H Print Language: [place] Instructions: Recurrent Seizures in Adults (ED) Additional Instructions: Take your seizure medications when you get home Referrals: Physician,Non-Staff, MD [Primary Care Provider] - 1 week
[2024-06-06 20:41] VITALS: PULSE 108; O2SAT 99
--- OUTSIDE RECORDS SUMMARY | 2024-06-06 20:44 | XMS_ITS | CCD ---
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 Performed By: #### A PTT, PT #### [facility] [address] [place], [place], aPTT Coag (Bld) [Time] 27 s [facility] Interpretation and review of laboratory results Normal [facility] PROTHROMBIN TIME AND INRon 0 11-24-2023 INR Coag (PPP) [Relative time] 1.11 {INR} High 0.90-1.10 [facility] Comment on above: Performed By: #### A PTT, PT #### [facility] [address] [place], [place], PT Coag (PPP) [Time] 12.4 s Normal 9.7-12.9 [facility] Comment on above: Performed By: #### A PTT, PT #### S [facility] [address] [place] [address], INR Coag (PPP) [Relative time] 1.11 {INR} High 0.90 - 1.10 [facility] Interpretation and review of laboratory results Abnormal [facility] PT Coag (PPP) [Time] 12.4 [facility] TYPE AND SCREENon 11-24-2023 ABO and Rh group Nom (Bld) Blood group O Rh(D) positive Normal [facility] Comment on above: Performed By: #### T S #### [facility] [address] [place] [address], ABO and Rh group Nom (Bld) No Previous Results Normal [facility] Comment on above: Performed By: #### T S #### [facility] [address] [place] [address], ABSC INT Negative Normal [facility] Comment on above: Performed By: #### T S #### [facility] [address] [place], [place], ABO and Rh group Nom (Bld) Blood group O Rh(D) positive [facility] ABO and Rh group Nom (Bld) No Previous Results [facility] Blood group antibody screen Ql Negative [facility] XR L-SPINE STANDING AP+LAT 2 VIEWSon 11-24-2023 [...] to 11/23/2023 CT. MACRO: None Normal [facility] XR Lumbar spine AP and Later [...] loss similar to 11/23/2023 CT. MACRO: None [facility] Radiology Study observation (narrative) [facility] XR Lumbar spine AP and Later al W standingOrdered By: Micah Barnes on 11-24-2023 [facility] Work Phone: ABO/Rh Retypeon 11-23-2023 ABO/RH Recheck Result Positive Normal [facility] Comment on above: Result Comment: PERF ORMED BY: [facility] [address] [place] [address] PATHOLOGIST [employer] HOLLEY FERNANDO M.D. Amphetamine Screen Ql (U)Ord ered By: Mago Mann on 11-23-2023 Amphetamines Ql (U) Negative Negative [facility] Amylaseon 11-23-2023 Amylase [Catalytic activity/Vol] 30 U/L Normal 29-103 [facility] Comment on above: Performed By: #### C K, CBC, ETOH, LYTES, GLU, BUN, CREAT, AST, ELSA, LIPASE ####[place] [id number] [address] Amylase [Enzymatic activity/ volume] in Serum or PlasmaOrdered By: Mago Mann on 11-23-2023 Amylase [Catalytic activity/Vol] 30 U/L 29-103 [facility] Aspartate Amino Transferaseo n 11-23-2023 AST [Catalytic activity/Vol] 34 U/L Normal 13-39 [facility] Comment on above: Performed By: #### C K, CBC, ETOH, LYTES, GLU, BUN, CREAT, AST, ELSA, LIPASE ####[place] [id number] [place] [id number] [facility] Aspartate aminotransferase [ Enzymatic activity/volume] in Serum or PlasmaOrdered By: Mago Mann on 11-23-2023 AST [Catalytic activity/Vol] 34 U/L 13-39 [facility] Barbiturates [Presence] in U rine by Screen methodOrdered By: Mago Mann on 11-23-2023 Barbiturates Screen Ql (U) Negative Negative [facility] Basophils Auto (Bld) [#/Vol] Ordered By: Mago Mann on 11-23-2023 Basophils (Bld) [#/Vol] 0.1 10*3/uL 0.0-0.2 [facility] Basophils/100 WBC Auto (Bld) Ordered By: Mago Mann on 11-23-2023 Basophils/100 WBC (Bld) 0.8 % . F [facility] Benzodiazepines Screen Ql (U )Ordered By: Mago Mann on 11-23-2023 Benzodiazepines Ql (U) Negative Negative [facility] Benzoylecgonine [Presence] i n Urine by Screen methodOrdered By: Mago Mann on 11-23-2023 Benzoylecgonine Screen Ql (U) Negative Negative [facility] Blood Urea Nitrogenon 2023 Urea nitrogen [Mass/Vol] 19 mg/dL Normal 7-25 [facility] Comment on above: Performed By: #### C K, CBC, ETOH, LYTES, GLU, BUN, CREAT, AST, ELSA, LIPASE #### [address] abdomen pelvis w conon CT abdomen pelvis w con [facility] Main [place] [address] [place] [address] CT Scan Report Signed Patient: Juanjose Bolden MR#: [id number] 66 : 2000 Acct:[id number] Age/Sex: 23 / M ADM Date: 11/23/23 Loc: ER Room: Type: [facility] ER Attending Dr: Copies to: Mago Mann DO Ordering Provider: Mago Mann DO Date of Service: 11/23/23 CT/CT chest w con: f ([id number]) CT/CT abdomen pelvis w con: f CT [...] Deanna Henderson M.D.11/23/2023 1:24 PM Dictation Location: [place] [address] Transcribed By: JANET 11/23/23 1324 Dictated By: Deanna Henderson MD 11/23/23 1304 Signed By: 11/23/23 1324 Normal [facility] CT cervical spine wo conon 0 11-23-2023 CT cervical spine wo con [facility] [place] [address] CT Scan Report Signed Patient: Juanjose Bolden MR#: [id number] 66 : 2000 Acct:[id number] Age/Sex: 23 / M ADM Date: 11/23/23 Loc: ER Room: Type: [facility] ER Attending Dr: Copies to: Mago Mann DO Ordering Provider: Mago Mann DO Date of Service: 11/23/23 CT/CT cervical spine wo con: f ([id number]) CT/CT facial bones wo con: f ([id number]) CT/CT head/brain wo con: f CLINICAL DATA: [...] Deanna Henderson M.D.11/23/2023 1:04 PM Dictation Location: [place] [address] Transcribed By: [facility] 11/23/23 1304 Dictated By: Deanna Henderson MD 11/23/23 1258 Signed By: 11/23/23 1304 Normal [facility] Cannabinoids [Presence] in U rine by Screen methodOrdered By: Mago Mann on 11-23-2023 Cannabinoids Screen Ql (U) Positive Negative [facility] Comment on above: These are unconfirme d results and should not be used for legal purposes. Drug Cut-Off Concentration: AMPH 1000 ng/mL HIREN 200 ng/mL JOSESITO 200 ng/mL COCM 300 ng/mL OP 300 ng/mL PCP 25 ng/mL THC 20 ng/mL Carbon dioxide, total [Moles /volume] in Serum or PlasmaOrdered By: Mago Mann on 11-23-2023 CO2 [Moles/Vol] 27.8 mmol/L 21.0-31.0 [facility] Chloride [Moles/volume] in S james or PlasmaOrdered By: Mago Mann on 11-23-2023 Chloride [Moles/Vol] 106 mmol/L 98-107 [facility] Complete Blood Count Auto Di ffon 11-23-2023 Basophils (Bld) [#/Vol] 0.1 10*3/uL Normal 0.0-0.2 [facility] Comment on above: Result Comment: PERF ORMED BY: [facility] [address] [facility] [place] [address] PATHOLOGIST [employer] HOLLEY FERNANDO M.D. Performed By: #### C K, CBC, ETOH, LYTES, GLU, BUN, CREAT, AST, ELSA, LIPASE ####[address] Basophils/100 WBC (Bld) 0.8 % Normal . [facility] Comment on above: Performed By: #### C K, CBC, ETOH, LYTES, GLU, BUN, CREAT, AST, ELSA, LIPASE ####[address] Eosinophils (Bld) [#/Vol] 0.3 10*3/uL Normal 0.0-0.45 [facility] Comment on above: Performed By: #### C K, CBC, ETOH, LYTES, GLU, BUN, CREAT, AST, ELSA, LIPASE ####[address] Eosinophils/100 WBC (Bld) 4.3 % Normal . [facility] Comment on above: Performed By: #### C K, CBC, ETOH, LYTES, GLU, BUN, CREAT, AST, ELSA, LIPASE ####[address] Erythrocyte distribution width (RBC) [Ratio] 12.2 % Normal 12.0-14.8 [facility] Comment on above: Performed By: #### C K, CBC, ETOH, LYTES, GLU, BUN, CREAT, AST, ELSA, LIPASE ####[address] Hematocrit (Bld) [Volume fraction] 44.9 % Normal 38.8-50.0 [facility] Comment on above: Performed By: #### C K, CBC, ETOH, LYTES, GLU, BUN, CREAT, AST, ELSA, LIPASE ####[address] Hemoglobin (Bld) [Mass/Vol] 15.2 g/dL Normal 13.0-17.0 [facility] Comment on above: Performed By: #### C K, CBC, ETOH, LYTES, GLU, BUN, CREAT, AST, ELSA, LIPASE ####[address] Lymphocytes (Bld) [#/Vol] 2.2 10*3/uL Normal 1.00-4.8 [facility] Comment on above: Performed By: #### C K, CBC, ETOH, LYTES, GLU, BUN, CREAT, AST, ELSA, LIPASE ####[address] Lymphocytes/100 WBC (Bld) 31.7 % Normal . [facility] Comment on above: Performed By: #### C K, CBC, ETOH, LYTES, GLU, BUN, CREAT, AST, ELSA, LIPASE ####[address] MCH (RBC) [Entitic mass] 30.4 pg Normal 27.5-35.2 [facility] Comment on above: Performed By: #### C K, CBC, ETOH, LYTES, GLU, BUN, CREAT, AST, ELSA, LIPASE ####[address] MCV (RBC) [Entitic vol] 90.0 fL Normal 83.5-101 F [facility] Comment on above: Performed By: #### C K, CBC, ETOH, LYTES, GLU, BUN, CREAT, AST, ELSA, LIPASE ####[address] Mean Corpuscular HGB Conc 33.8 g/dL Normal 32.5-35.6 [facility] Comment on above: Performed By: #### C K, CBC, ETOH, LYTES, GLU, BUN, CREAT, AST, ELSA, LIPASE ####[address] Monocytes (Bld) [#/Vol] 0.4 10*3/uL Normal 0.0-0.8 [facility] Comment on above: Performed By: #### C K, CBC, ETOH, LYTES, GLU, BUN, CREAT, AST, ELSA, LIPASE ####[address] Monocytes/100 WBC (Bld) 20.09 % High 0.00-20.00 [facility] Comment on above: Result Comment: For adults in ED, MDW > 20.0 may be associated with a higher risk of sepsis during the first 12 hrs of hospital admission Performed By: #### C K, CBC, ETOH, LYTES, GLU, BUN, CREAT, AST, ELSA, LIPASE ####[address] Monocytes/100 WBC (Bld) 5.8 % Normal . F [facility] Comment on above: Performed By: #### C K, CBC, ETOH, LYTES, GLU, BUN, CREAT, AST, ELSA, LIPASE ####[address] Neutrophils (Bld) [#/Vol] 4.0 10*3/uL Normal 1.8-7.7 [facility] Comment on above: Performed By: #### C K, CBC, ETOH, LYTES, GLU, BUN, CREAT, AST, ELSA, LIPASE ####[address] Neutrophils/100 WBC (Bld) 57.4 % Normal . [facility] Comment on above: Performed By: #### C K, CBC, ETOH, LYTES, GLU, BUN, CREAT, AST, ELSA, LIPASE ####[address] NRBC% 0.3 /100{WBC} Normal 0-0.5 [facility] Comment on above: Performed By: #### C K, CBC, ETOH, LYTES, GLU, BUN, CREAT, AST, ELSA, LIPASE ####[address] Platelet mean volume (Bld) [Entitic vol] 7.1 fL Normal 6.6-10.1 [facility] Comment on above: Performed By: #### C K, CBC, ETOH, LYTES, GLU, BUN, CREAT, AST, ELSA, LIPASE ####[address] Platelets (Bld) [#/Vol] 281 10*3/uL Normal 150-450 [facility] Comment on above: Performed By: #### C K, CBC, ETOH, LYTES, GLU, BUN, CREAT, AST, ELSA, LIPASE ####[address] RBC (Bld) [#/Vol] 4.99 10*6/uL Normal 3.90-5.60 [facility] Comment on above: Performed By: #### C K, CBC, ETOH, LYTES, GLU, BUN, CREAT, AST, ELSA, LIPASE ####[address] WBC (Bld) [#/Vol] 6.9 10*3/uL Normal 4.1-10.5 [facility] Comment on above: Performed By: #### C K, CBC, ETOH, LYTES, GLU, BUN, CREAT, AST, ELSA, LIPASE ####[address] Creatine Kinaseon 11-23-2023 CK [Catalytic activity/Vol] 193 U/L Normal 30-223 [facility] Comment on above: Result Comment: PERF ORMED BY: [place] [address] PATHOLOGIST [employer] HOLLEY FERNANDO M.D. Performed By: #### C K, CBC, ETOH, LYTES, GLU, BUN, CREAT, AST, ELSA, LIPASE ####[facility] [id number] Creatine kinase [Enzymatic a ctivity/volume] in Serum or PlasmaOrdered By: Mago Mann on 11-23-2023 CK [Catalytic activity/Vol] 193 U/L 30-223 [facility] Creatinineon 11-23-2023 Creatinine [Mass/Vol] 0.89 mg/dL Normal 0.70-1.30 [facility] Comment on above: Performed By: #### C K, CBC, ETOH, LYTES, GLU, BUN, CREAT, AST, ELSA, LIPASE #### [facility] [address] [place] [address] [place] Creatinine Clr Calc Pharmacy 116.49 [facility] Comment on above: Performed By: #### C K, CBC, ETOH, LYTES, GLU, BUN, CREAT, AST, ELSA, LIPASE #### [facility] [address] [place] [address] [place] GFR/1.73 sq M.predicted MDRD (S/P/Bld) [Vol rate/Area] mL/min/{1.73_m2} [facility] Comment on above: Performed By: #### C K, CBC, ETOH, LYTES, GLU, BUN, CREAT, AST, ELSA, LIPASE #### [facility] [address] [place] [address] [place] Creatinine [Mass/volume] in Serum or PlasmaOrdered By: Mago Mann on 11-23-2023 Creatinine [Mass/Vol] 0.89 mg/dL 0.70-1.30 [facility] Drug Screen,Urineon 11-23-19 24 Amphetamine Screen,Urine Negative Normal Negative [facility] Comment on above: Performed By: #### U RDS #### [facility] [address] [place] [address] [place] Barbiturate Screen,Urine Negative Normal Negative [facility] Comment on above: Performed By: #### U RDS #### [facility] [address] [place] [address] [place] Benzodiazepines Screen,Urine Negative Normal Negative [facility] Comment on above: Performed By: #### U RDS #### [place] [address] [place] Cannabinoid Screen,Urine Positive High Negative [facility] Comment on above: Result Comment: Thes e are unconfirmed results and should not be used for legal purposes. Drug Cut-Off Concentration: AMPH 1000 ng/mL HIREN 200 ng/mL JOSESITO 200 ng/mL COCM 300 ng/mL OP 300 ng/mL PCP 25 ng/mL THC 20 ng/mL PERFORMED BY: [place] [address] PATHOLOGIST [employer] HOLLEY FERNANDO M.D. Performed By: #### U RDS #### [place] [address] [place] Cocaine Screen,Urine Negative Normal Negative [facility] Comment on above: Performed By: #### U RDS #### [place] [address] [place] Opiate Screen,Urine Positive High Negative [facility] Comment on above: Performed By: #### U RDS #### [address] Phencyclidine Screen,Urine Negative Normal Negative [facility] Comment on above: Performed By: #### U RDS #### [address] ECG 12 lead ECGon 11-23-2023 ECG 12 lead ECG [facility] Main [place] [address] [place] [address] Electrocardiograph Report Signed Patient: Juanjose Bolden MR#: [id number] 66 : 2000 Acct:[id number] Age/Sex: 23 / M ADM Date: 11/23/23 Loc: ER Room: Type: [facility] ER Attending Dr: Ordering Provider: Mago Mann [...] 62 BPM Confirmed by MAGO MANN DO ([id number]) on 11/23/2023 4:22:16 PM Referred By: Electronically Signed By:MAGO MANN DO Transcribed By: MUS Signed By Mago Mann DO 11/23 1620 Normal [facility] Electrolyteson 11-23-2023 Anion gap [Moles/Vol] 7.9 mmol/L Normal 6.0-15.0 [facility] Comment on above: Performed By: #### C K, CBC, ETOH, LYTES, GLU, BUN, CREAT, AST, ELSA, LIPASE #### [address] Chloride [Moles/Vol] 106 mmol/L Normal 98-107 [facility] Comment on above: Performed By: #### C K, CBC, ETOH, LYTES, GLU, BUN, CREAT, AST, ELSA, LIPASE #### [address] CO2 [Moles/Vol] 27.8 mmol/L Normal 21.0-31.0 [facility] Comment on above: Performed By: #### C K, CBC, ETOH, LYTES, GLU, BUN, CREAT, AST, ELSA, LIPASE #### [address] Potassium [Moles/Vol] 4.7 mmol/L Normal 3.5-5.1 [facility] Comment on above: Performed By: #### C K, CBC, ETOH, LYTES, GLU, BUN, CREAT, AST, ELSA, LIPASE #### [address] Sodium [Moles/Vol] 137 mmol/L Normal 136-145 [facility] Comment on above: Performed By: #### C K, CBC, ETOH, LYTES, GLU, BUN, CREAT, AST, ELSA, LIPASE #### [facility] [address] Eosinophils Auto (Bld) [#/Vo l]Ordered By: Mago Mann on 11-23-2023 Eosinophils (Bld) [#/Vol] 0.3 10*3/uL 0.0-0.45 [facility] Eosinophils/100 WBC Auto (Bl d)Ordered By: Mago Mann on 11-23-2023 Eosinophils/100 WBC (Bld) 4.3 % . [facility] Erythrocyte distribution wid th Auto (RBC) [Ratio]Ordered By: Mago Mann on 11-23-2023 Erythrocyte distribution width (RBC) [Ratio] 12.2 % 12.0-14.8 [facility] Ethanol [Mass/volume] in Ser um or PlasmaOrdered By: Mago Mann on 11-23-2023 Ethanol [Mass/Vol] mg/dL [facility] Ethanol [Mass/Vol] TNP [facility] Comment on above: Test not performed Ethyl Alcohol Profileon Ethanol [Mass/Vol] mg/dL Normal [facility] Comment on above: Performed By: #### C K, CBC, ETOH, LYTES, GLU, BUN, CREAT, AST, ELSA, LIPASE ####[facility] [id number] Percent Ethanol Not performed Normal [facility] Comment on above: Result Comment: PERF ORMED BY: [facility] [address] [place] [address] PATHOLOGIST [employer] HOLLEY FERNANDO M.D. Performed By: #### C K, CBC, ETOH, LYTES, GLU, BUN, CREAT, AST, ELAS, LIPASE ####[facility] [id number] Glucoseon 11-23-2023 Glucose [Mass/Vol] 96 mg/dL Normal 70-100 [facility] Comment on above: Result Comment: [place] om Glucose Reference Range is dependent on time and content of last meal. Glucose of more than 200 mg/dL in a nonstressed, ambulatory subject supports the diagnosis of Diabetes Mellitus. ADA recommended reference range Performed By: #### C K, CBC, ETOH, LYTES, GLU, BUN, CREAT, AST, ELSA, LIPASE #### [facility] [address] Glucose [Mass/volume] in Ser um or PlasmaOrdered By: Mago Mann on 11-23-2023 Glucose [Mass/Vol] 96 mg/dL 70-100 [facility] Comment on above: ADA recommended refe rence rangeRandom Glucose Reference Range is dependent on time and content of last meal. Glucose of more than 200 mg/dL in a nonstressed, ambulatory subject supports the diagnosis of Diabetes Mellitus. Hematocrit Auto (Bld) [Volum e fraction]Ordered By: Mago Mann on 11-23-2023 Hematocrit (Bld) [Volume fraction] 44.9 % 38.8-50.0 [facility] Hemoglobin [Mass/volume] in BloodOrdered By: Mago Mann on 11-23-2023 Hemoglobin (Bld) [Mass/Vol] 15.2 g/dL 13.0-17.0 [facility] Leukocytes [#/volume] correc lola for nucleated erythrocytes in Blood by Automated counOrdered By: Mago Mann on 11-23-2023 WBC corrected for nucl RBC Auto (Bld) [#/Vol] 6.9 10*3/uL 4.1-10.5 [facility] Lipaseon 11-23-2023 Lipase [Catalytic activity/Vol] 18.0 U/L Normal 11.0-82.0 [facility] Comment on above: Result Comment: PERF ORMED BY: [facility] [address] [place] [address] PATHOLOGIST [employer] HOLLEY FERNANDO M.D. Performed By: #### C K, CBC, ETOH, LYTES, GLU, BUN, CREAT, AST, ELSA, LIPASE ####[facility] [id number] [place] [id number] [facility] Lipase [Enzymatic activity/v olume] in Serum or PlasmaOrdered By: Mago Mann on 11-23-2023 Lipase [Catalytic activity/Vol] 18.0 U/L 11.0-82.0 [facility] Lymphocytes Auto (Bld) [#/Vo l]Ordered By: Mago Mann on 11-23-2023 Lymphocytes (Bld) [#/Vol] 2.2 10*3/uL 1.00-4.8 [facility] Lymphocytes/100 WBC Auto (Bl d)Ordered By: Mago Mann on 11-23-2023 Lymphocytes/100 WBC (Bld) 31.7 % . [facility] MCH Auto (RBC) [Entitic mass ]Ordered By: Mago Mann on 11-23-2023 MCH (RBC) [Entitic mass] 30.4 pg 27.5-35.2 [facility] MCHC Auto (RBC) [Mass/Vol]Or dered By: Mago Mann on 11-23-2023 MCHC (RBC) [Mass/Vol] 33.8 g/dL 32.5-35.6 [facility] MCV Auto (RBC) [Entitic vol] Ordered By: Mago Mann on 11-23-2023 MCV (RBC) [Entitic vol] 90.0 fL 83.5-101 F [facility] Monocyte distribution width [Entitic volume] in Blood by AutomatedOrdered By: Mago Mann on 11-23-2023 Monocyte distribution width Auto (Bld) [Entitic vol] 20.09 % 0.00-20.00 [facility] Comment on above: For adults in ED, MD W > 20.0 may be associated with a higher risk of sepsis during the first 12 hrs of hospital admission Monocytes Auto (Bld) [#/Vol] Ordered By: Mago Mann on 11-23-2023 Monocytes (Bld) [#/Vol] 0.4 10*3/uL 0.0-0.8 [facility] Monocytes/100 WBC Auto (Bld) Ordered By: Mago Mann on 11-23-2023 Monocytes/100 WBC (Bld) 5.8 % . F [facility] Neutrophils Auto (Bld) [#/Vo l]Ordered By: Mago Mann on 11-23-2023 Neutrophils (Bld) [#/Vol] 4.0 10*3/uL 1.8-7.7 [facility] Neutrophils/100 WBC Auto (Bl d)Ordered By: Mago Mann on 11-23-2023 Neutrophils/100 WBC (Bld) 57.4 % . [facility] No Panel InformationOrdered By: Mago Mann on 11-23-2023 Estimated GFR (CKD-EPI) > 60.0 mL/Min [facility] Creatinine Clearance (Chem 116.49 [facility] Nucleated erythrocytes [Pres ence] in Blood by Automated countOrdered By: Mago Mnan on 11-23-2023 Nucleated RBC Auto Ql (Bld) 0.3 /100{WBC} 0-0.5 [facility] Opiates [Presence] in Urine by Screen methodOrdered By: Mago Mann on 11-23-2023 Opiates Screen Ql (U) Positive Negative [facility] Phencyclidine Screen Ql (U)O rdered By: Mago Mann on 11-23-2023 Phencyclidine Ql (U) Negative Negative [facility] Platelet mean volume Auto (B ld) [Entitic vol]Ordered By: Mago Mann on 11-23-2023 Platelet mean volume (Bld) [Entitic vol] 7.1 fL 6.6-10.1 [facility] Platelets Auto (Bld) [#/Vol] Ordered By: Mago Mann on 11-23-2023 Platelets (Bld) [#/Vol] 281 10*3/uL 150-450 [facility] Potassium [Moles/volume] in Serum or PlasmaOrdered By: Mago Mann on 11-23-2023 Potassium [Moles/Vol] 4.7 mmol/L 3.5-5.1 [facility] RBC Auto (Bld) [#/Vol]Ordere d By: Mago Mann on 11-23-2023 RBC (Bld) [#/Vol] 4.99 10*6/uL 3.90-5.60 [facility] Serum or plasma anion gap de terminationOrdered By: Mago Mann on 11-23-2023 Anion gap [Moles/Vol] 7.9 mmol/L 6.0-15.0 [facility] Sodium [Moles/volume] in Ser um or PlasmaOrdered By: Mago Mann on 11-23-2023 Sodium [Moles/Vol] 137 mmol/L 136-145 [facility] Type and Screenon 11-23-2023 ABO and Rh group Nom (Bld) Blood group O Rh(D) positive Normal [facility] Urea nitrogen [Mass/volume] in Serum or PlasmaOrdered By: aMgo Mann on 11-23-2023 Urea nitrogen [Mass/Vol] 19 mg/dL 7-25 [facility] WBC Auto (Bld) [#/Vol]Ordere d By: Mago Mann on 11-23-2023 WBC (Bld) [#/Vol] 6.9 10*3/uL 4.1-10.5 [facility] CNPNon 10-06-2023 CNPN Telephone ([facility]) JUANJOSE BOLDEN ([id number]) 1 M UPA Date Time Provider Department 10/06/23 JASPER RUSSO [facility] During your visit today, we recorded the following information about you: Ananth Yard JackerGail 10/06/2023 4:47 PM [facility] 10/07/2023 8:49 AM Signed Placed [...] NOT RESOLVE) [Z00.00] Encounter Status:Closed by ANANTH TECHNOLOGY OFFICERGAIL on 10/28/23 [facility] ED NOTEon 06-04-2023 ED NOTE HNO ID: [id number] Author: Alejandro Cortez RN Service: ? Author Type: Registered Nurse Type: ED Notes Filed: 06/04/2023 2:54 AM Note Text: Patient verbalized understanding of discharge instructions and follow up care. [facility] ED PROV NOTEon 06-04-2023 ED PROV NOTE HNO ID: [id number] Author: Lala Cross PA-C Service: Emergency Medicine Author Type: Physician Chair Trimmer Type: ED Provider Notes Filed: 06/04/2023 3:07 [...] History provided by: Medical records and patient paper reeler used: No PAST MEDICAL HISTORY Diagnosis Date Attention deficit disorder (ADD) without hyperactivity Drug side effects, initial encounter 07/15/2018 Elevated cholesterol Epilepsy (HCC) Other infants, unspecified (weight)(765.10) 34 weeks; intubated x 1-2 days; 2 weeks in NICU; [facility] No past surgical history on file. FAMILY [...] of Bact (more content not included)... Normal [facility] 04-29-[address] [facility] Telephone ([facility]) JUANJOSE BOLDEN ([id number]) 00 M UPA Date Time Provider Department 04/29/23 JASPER RUSSO [facility] During your visit today, we recorded the following information about you: Lesia Harrell Ma 05/01/2023 9:35 AM Signed On desk, please review. Last annual 03/31/23 Alyssia King PA-C 05/01/2023 10:58 AM Signed Form completed. Placed in outbox. 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 Allergies As of Date: 04/29/2023 Noted Allergy Reaction PENICILLINS 01/16/2023 16 - Unknown Comments: Pt does not remember reaction, just that he's allergic TRILEPTAL (OXCARBAZEPINE) 11/06/2010 4 - Hives Date Reviewed: 03/31/2023 Reviewed by: Lesia Harrell Ma - Fully Assessed Reason for Visit: Forms [913] [facility] Health Release Form [...] Status:Closed by LESIA HARRELL MA on 05/01/23 [facility] Bacteria Wnd Culton 01-17-20 Bacteria identified [...] , Intermediate >4 , Resistant >8 Abnormal [facility] Comment on above: Performed By: #### 6 462-6 ####[facility] [id number] [address] [place] LESDSon 01-16-2023 CNMELANY HNO ID: [id number] Author: Sangita Guaman MD Service: Hospital Medicine [...] I have performed the substantive portion including atmn-cx-fziu and relevant services for a total of >30 minutes. SIGNATURE: Sangita Guaman MD PATIENT NAME: Juanjose Bolden DATE: January 16, 2023 TIME: 5:29 PM [facility] CONSULTon 01-16-2023 CONSULT HNO ID: [id number] Author: Mariajose Morillo MD Service: Infectious Disease [...] with cannabis dependence, epilepsy who works at [employer] developed right shoulder infected wound. Nasal MRSA [...] a week. Mariajose Morillo MD Office phone: [phone] Office fax: [phone] [facility] Infectious Disease Consult Services PATIENT NAME: Juanjose [...] x 1-2 days; 2 weeks in NICU; [facility] Past Surgical History: No past surgical history [...] [x] chest pa (more content not included)... [facility] NURSING PROGon 01-16-2023 NURSING PROG HNO ID: [id number] Author: Moses Downey RN Service: Nursing Author [...] No restrictions. Sincerely yours, Moses Downey RN [facility] NURSING PROG HNO ID: [id number] Author: Moses Downey RN Service: Nursing Author [...] from yesterday but appear unchanged from today. [facility] ALLIED HEALTHon 01-15-2023 ALLIED HEALTH HNO ID: [id number] Author: Nadine Rascon RT(R) Service: ? Author [...] RT(R) January 15, 2023 12:43 PM Normal [facility] CASE MGT INIT Travis 2022 [facility] H[facility] ID: [id number] Author: J CARLOS Mcneill Service: Social Work Author Type: Operations Logistics Analyst Type: Care Mgt Initial Assessment Filed: 01/15/2023 4:16 PM Note Text: CARE MANAGEMENT: ASSESSMENT AND DISCHARGE PLAN SERVICE DATE: January 15, 2023 SERVICE TIME: 2:00 pm PRIMARY CARE PHYSICIAN: Jasper Russo DO Primary Contact: Extended Emergency Contact Information Primary Emergency Contact: Nadine Morillo Address: [address] [place] [address] Mobile Relation: Mother ADMISSION STATUS: Emergency Insurance Provider: [facility] MEDICAID NEEDS PRIOR TO DISCHARGE Needs Prior to Discharge: IV Antibiotics POTENTIAL TRANSITION PLANS To Be Determined Based on clinical judgement, Care Management will address the following needs: Medical Patient's perception of need for this admission: arm wound infection ADVANCE DIRECTIVES Current Advance Directive: None Daycare Worker Attempted to Assist with AD Completion: Yes [...] at this time. FREEDOM OF CHOICE EXPLAINED: [place] of Choice Given: No Reason Not Given: [...] 15, 2023 TIME: 3:44 PM CONTACT #: [id number] Normal [facility] CBC W Auto Differential pane l (Bld)on 01-15-2023 Basophils (Bld) [#/Vol] 0.03 10*3/uL Normal <0.11 [facility] Comment on above: Order Comment: Speci men Type: BLOOD SPECIMEN Ordering Facility: [facility] Address: [address] [place] [id number] Performed By: #### 5 7021-8 #### [facility] CLIA [id number] [place] [address] [place] Basophils/100 WBC (Bld) 0.4 % Normal F [facility] Comment on above: Order Comment: Speci men Type: BLOOD SPECIMEN Ordering Facility: [facility] Address: [address] [place] [address] Performed By: #### 5 7021-8 #### [facility] CLIA [id number] [address] [place] [address] [place] Differential cell count method Nom (Bld) Auto Normal [facility] Comment on above: Order Comment: Speci men Type: BLOOD SPECIMEN Ordering Facility: [facility] Address: [address] [place] [address] Performed By: #### 5 7021-8 #### [facility] CLIA [id number] [address] [place] [address] [place] Eosinophils (Bld) [#/Vol] 0.14 10*3/uL Normal <0.46 [facility] Comment on above: Order Comment: Speci men Type: BLOOD SPECIMEN Ordering Facility: [facility] Address: [address] [place] [address] Performed By: #### 5 7021-8 #### [facility] CLIA [id number] [address] [place] [address] [place] Eosinophils/100 WBC (Bld) 1.8 % Normal [facility] Comment on above: Order Comment: Speci men Type: BLOOD SPECIMEN Ordering Facility: [facility] Address: [address] [place] [address] Performed By: #### 5 7021-8 #### [facility] CLIA [id number] [address] [place] [address] [place] Erythrocyte distribution width (RBC) [Ratio] 11.6 % Normal 11.5-15.0 [facility] Comment on above: Order Comment: Speci men Type: BLOOD SPECIMEN Ordering Facility: [facility] Address: [address] [place] [address] Performed By: #### 5 7021-8 #### [facility] CLIA [id number] [address] [place] [address] [place] Hematocrit (Bld) [Volume fraction] 43.2 % Normal 39.0-51.0 [facility] Comment on above: Order Comment: Speci men Type: BLOOD SPECIMEN Ordering Facility: [facility] Address: [address] [place] [address] Performed By: #### 5 7021-8 #### [facility] CLIA [id number] [address] [place] [address] [place] Hemoglobin (Bld) [Mass/Vol] 14.4 g/dL Normal 13.0-17.0 [facility] Comment on above: Order Comment: Speci men Type: BLOOD SPECIMEN Ordering Facility: [facility] Address: [address] [place] [address] Performed By: #### 5 7021-8 #### [facility] CLIA [id number] [address] [place] [address] [place] Immature granulocytes (Bld) [#/Vol] 10*3/uL Normal <0.10 [facility] Comment on above: Order Comment: Speci men Type: BLOOD SPECIMEN Ordering Facility: [facility] Address: [address] [place] [address] Performed By: #### 5 7021-8 #### [facility] CLIA [id number] [address] [place] [address] [place] Immature granulocytes/100 WBC (Bld) 0.3 % Normal [facility] Comment on above: Order Comment: Speci men Type: BLOOD SPECIMEN Ordering Facility: [facility] Address: [address] [address] Performed By: #### 5 7021-8 #### [facility] CLIA [id number] [address] [place] [address] [place] Lymphocytes (Bld) [#/Vol] 1.74 10*3/uL Normal 1.00-4.00 [facility] Comment on above: Order Comment: Speci men Type: BLOOD SPECIMEN Ordering Facility: [facility] Address: [address] [address] Performed By: #### 5 7021-8 #### [facility] CLIA [id number] [address] [place] [address] [place] Lymphocytes/100 WBC (Bld) 22.0 % Normal [facility] Comment on above: Order Comment: Speci men Type: BLOOD SPECIMEN Ordering Facility: [facility] Address: [address] [address] Performed By: #### 5 7021-8 #### [facility] CLIA [id number] [address] [place] [address] [place] MCH (RBC) [Entitic mass] 29.8 pg Normal 26.0-34.0 [facility] Comment on above: Order Comment: Speci men Type: BLOOD SPECIMEN Ordering Facility: [facility] Address: [address] [place] [address] Performed By: #### 5 7021-8 #### [facility] CLIA [id number] [address] [place] [address] [place] MCHC (RBC) [Mass/Vol] 33.3 g/dL Normal 30.5-36.0 [facility] Comment on above: Order Comment: Speci men Type: BLOOD SPECIMEN Ordering Facility: [facility] Address: [address] [place] [address] Performed By: #### 5 7021-8 #### [facility] CLIA [id number] [address] [place] [address] [place] MCV (RBC) [Entitic vol] 89.3 fL Normal 80.0-100.0 F [facility] Comment on above: Order Comment: Speci men Type: BLOOD SPECIMEN Ordering Facility: [facility] Address: [address] [place] [address] Performed By: #### 5 7021-8 #### [facility] CLIA [id number] [address] [place] [address] [place] Monocytes (Bld) [#/Vol] 0.44 10*3/uL Normal <0.87 [facility] Comment on above: Order Comment: Speci men Type: BLOOD SPECIMEN Ordering Facility: [facility] Address: [address] [place], [place] [id number] Performed By: #### 5 7021-8 #### [facility] CLIA [id number] [address] [place] [address] [place] Monocytes/100 WBC (Bld) 5.6 % Normal [facility] Comment on above: Order Comment: Speci men Type: BLOOD SPECIMEN Ordering Facility: [facility] Address: [address] [place] [address] Performed By: #### 5 7021-8 #### [facility] CLIA [id number] [address] [place] [address] [place] Neutrophils (Bld) [#/Vol] 5.54 10*3/uL Normal 1.45-7.50 [facility] Comment on above: Order Comment: Speci men Type: BLOOD SPECIMEN Ordering Facility: [facility] Address: [address] [place] [address] Performed By: #### 5 7021-8 #### [facility] CLIA [id number] [address] [place] [address] [place] Neutrophils/100 WBC (Bld) 69.9 % Normal [facility] Comment on above: Order Comment: Speci men Type: BLOOD SPECIMEN Ordering Facility: [facility] Address: [address] [place] [address] Performed By: #### 5 7021-8 #### [facility] CLIA [id number] [address] [place] [address] [place] Nucleated RBC (Bld) [#/Vol] 10*3/uL Normal <0.01 [facility] Comment on above: Order Comment: Speci men Type: BLOOD SPECIMEN Ordering Facility: [facility] Address: [address] [place] [address] Performed By: #### 5 7021-8 #### [facility] CLIA [id number] [address] [place] [address] [place] Nucleated RBC/100 WBC (Bld) [Ratio] 0.0 /100 WBC Normal [facility] Comment on above: Order Comment: Speci men Type: BLOOD SPECIMEN Ordering Facility: [facility] Address: [address] [address] Performed By: #### 5 7021-8 #### [facility] CLIA [id number] [address] [place] [address] [place] Platelet mean volume (Bld) [Entitic vol] 8.8 fL Low 9.0-12.7 [facility] Comment on above: Order Comment: Speci men Type: BLOOD SPECIMEN Ordering Facility: [facility] Address: [address] [address] Performed By: #### 5 7021-8 #### [facility] CLIA [id number] [address] [place] [address] [place] Platelets (Bld) [#/Vol] 271 10*3/uL Normal 150-400 [facility] Comment on above: Order Comment: Speci men Type: BLOOD SPECIMEN Ordering Facility: [facility] Address: [address] [address] Performed By: #### 5 7021-8 #### [facility] CLIA [id number] [address] [place] [address] [place] RBC (Bld) [#/Vol] 4.84 10*6/uL Normal 4.20-6.00 [facility] Comment on above: Order Comment: Speci men Type: BLOOD SPECIMEN Ordering Facility: [facility] Address: [address] [address] Performed By: #### 5 7021-8 #### [facility] CLIA [id number] [address] [place] [address] [place] WBC (Bld) [#/Vol] 7.91 10*3/uL Normal 3.70-11.00 [facility] Comment on above: Order Comment: Speci men Type: BLOOD SPECIMEN Ordering Facility: [facility] Address: [address] [place] [address] Performed By: #### 5 7021-8 #### [facility] CLIA [id number] [address] [place] [address] [place] CK SerPl-cCncon 01-15-2023 CK [Catalytic activity/Vol] 65 U/L Normal 51-298 [facility] Comment on above: Order Comment: Speci men Type: BLOOD SPECIMENOrdering Facility: [facility] Address: [address] [phone] Performed By: #### 2 8, 2157-03 ####[facility] [id number] [place] [address] [place] CRP SerPl-mCncon 01-15-2023 CRP [Mass/Vol] 2.6 mg/dL High <0.9 [facility] Comment on above: Order Comment: Speci men Type: BLOOD SPECIMENOrdering Facility: [facility] Address: [address] Performed By: #### 2 4328, 1988-02, 2157-03 ####[facility] [id number] [place] [address] [place] Comprehensive metabolic 2000 panelon 01-15-2023 Albumin [Mass/Vol] 4.6 g/dL Normal 3.9-4.9 [facility] Comment on above: Order Comment: Speci men Type: BLOOD SPECIMENOrdering Facility: [facility] Address: [address] [address] Performed By: #### 2 4328, 2157-03 ####[facility] [id number] [place] [address] [place] ALP [Catalytic activity/Vol] 113 U/L Normal 38-113 [facility] Comment on above: Order Comment: Speci men Type: BLOOD SPECIMENOrdering Facility: [facility] Address: [place] [address] Performed By: #### 2 8, 1988-02, 2157-03 ####[facility] [id number] [place] [address] [place] ALT [Catalytic activity/Vol] 32 U/L Normal 10-54 [facility] Comment on above: Order Comment: Speci men Type: BLOOD SPECIMENOrdering Facility: [facility] Address: [address] Performed By: #### 2 432-8, 2157-03 ####[facility] [id number] [place] [address] [place] Anion gap [Moles/Vol] 9 mmol/L Normal 9-18 [facility] Comment on above: Order Comment: Speci men Type: BLOOD SPECIMENOrdering Facility: [facility] Address: [address] [place] [address] Performed By: #### 2 8, 2157-03 ####[facility] [id number] [place] [address] [place] AST [Catalytic activity/Vol] 23 U/L Normal 14-40 [facility] Comment on above: Order Comment: Speci men Type: BLOOD SPECIMENOrdering Facility: [facility] Address: [address] [place] [address] Performed By: #### 2 8, 2157-03 ####[facility] [id number] [place] [address] [place] Bilirubin [Mass/Vol] 0.3 mg/dL Normal 0.2-1.3 [facility] Comment on above: Order Comment: Speci men Type: BLOOD SPECIMENOrdering Facility: [facility] Address: [address] Performed By: #### 2 8, 2157-03 ####[facility] [id number] [place] [address] [place] Calcium [Mass/Vol] 10.1 mg/dL Normal 8.5-10.2 [facility] Comment on above: Order Comment: Speci men Type: BLOOD SPECIMENOrdering Facility: [facility] Address: [address] [address] Performed By: #### 2 432-8, 2157-03 ####[facility] [id number] [place] [address] [place] Chloride [Moles/Vol] 101 mmol/L Normal 97-105 [facility] Comment on above: Order Comment: Speci men Type: BLOOD SPECIMENOrdering Facility: [facility] Address: [address] [id number] Performed By: #### 2 4323-8, 1988-02, 2157-03 ####[facility] [id number] [place] [address] [place] CO2 [Moles/Vol] 30 mmol/L Normal 22-30 [facility] Comment on above: Order Comment: Speci men Type: BLOOD SPECIMENOrdering Facility: [facility] Address: [address] [phone] Performed By: #### 2 4323-8, 1988-02, 2157-03 ####[facility] [id number] [place] [address] [place] Creatinine [Mass/Vol] 0.76 mg/dL Normal 0.73-1.22 [facility] Comment on above: Order Comment: Speci men Type: BLOOD SPECIMENOrdering Facility: [facility] Address: [address] [place], [place] [phone] Performed By: #### 2 4323-8, 2157-03 ####[facility] [id number] [place] [address] [facility] [place] ESTIMATED GLOMERULAR FILTRATION RATE 130 mL/min/1.73m??? Normal >=60 [facility] Comment on above: Order Comment: Speci men Type: BLOOD SPECIMENOrdering Facility: [facility] Address: [address] [place], [place] [address] Result Comment: Luz mated Glomerular Filtration Rate [...] By: #### 2 4323-8, 2157-03 ####[facility] [id number] [place] [address] [place] Glucose [Mass/Vol] 93 mg/dL Normal 74-99 [facility] Comment on above: Order Comment: Speci men Type: BLOOD SPECIMENOrdering Facility: [facility] Address: [address] [place], [place] [phone] Result Comment: The [place] Diabetes Association (ADA) provides guidance for cutoff [...] Standards of Medical Care in Diabetes 2016, [place] Diabetes Association. Diabetes Care. 2016.39(Suppl 1). Performed By: #### 2 4323-8, 2157-03 ####[facility] [id number] [place] [address] [place] Potassium [Moles/Vol] 4.4 mmol/L Normal 3.7-5.1 [facility] Comment on above: Order Comment: Speci men Type: BLOOD SPECIMENOrdering Facility: [facility] Address: [address] [place] [address] Performed By: #### 2 4323-8, 2157-03 ####[facility] [id number] [place] [address] [place] Protein [Mass/Vol] 7.5 g/dL Normal 6.3-8.0 [facility] Comment on above: Order Comment: Speci men Type: BLOOD SPECIMENOrdering Facility: [facility] Address: [address] Performed By: #### 2 4323-8, 1988-02, 2157-03 ####[facility] [id number] [place] [id number] [place] Sodium [Moles/Vol] 140 mmol/L Normal 136-144 [facility] Comment on above: Order Comment: Speci men Type: BLOOD SPECIMENOrdering Facility: [facility] Address: [address] [place] [address] Performed By: #### 2 4323-8, 2157-03 ####[facility] [id number] [place] [id number] [place] Urea nitrogen [Mass/Vol] 15 mg/dL Normal 9-24 [facility] Comment on above: Order Comment: Speci men Type: BLOOD SPECIMENOrdering Facility: [facility] Address: [address] [place] [address] Performed By: #### 2 4323-8, 2157-03 ####[facility]ORY[facility]IA [id number] [place] [id number] [facility] ED NOTEon 01-15-2023 ED NOTE HNO ID: [id number] Author: Anthony Casarez RN Service: Nursing Author [...] bed in locked and low position Normal [facility] ED PROV NOTEon 01-15-2023 ED PROV NOTE HNO ID: [id number] Author: Mckenzie Arcos DO Service: Emergency Medicine [...] Arm is red and swollen and warm [facility] 22-year-old male presenting with concern for [...] x 1-2 days; 2 weeks in NICU; [facility] No past surgical history on file. FAMILY [...] well-appearing, no (more content not included)... Normal [facility] HISTORY PHYSICALon HISTORY PHYSICAL HNO ID: [id number] Author: Hina Duckworth APRN.RADAR SCIENTIST Service: Hospital Medicine Author Type: Nurse Practitioner [...] x 1-2 days; 2 weeks in NICU; [facility] No past surgical history on file. FAMILY [...] Problem: Involved (more content not included)... Normal [facility] NURSING PROGon 01-15-2023 NURSING PROG HNO ID: [id number] Author: Janelle Miller, RN Service: ? Author Type: Registered Nurse Type: Nursing Progress Note Filed: 01/15/2023 6:32 PM Note Text: Transfer Note:1602 Patient transferred into room/unit 528-2 CDU in stable condition. Actions taken: Patient belongings with patient. Normal [facility] SEPSIS LACTATEon 01-15-2023 Lactate [Moles/Vol] 1.5 mmol/L Normal 0.0-2.0 [facility] Comment on above: Order Comment: Speci men Type: BLOOD SPECIMEN Ordering Facility: [facility] Address: [address] [place] [address] Performed By: #### S LACT #### [facility] CLIA [id number] [address] [place] [address] [place] STAPH AUREUS PCRon 3 S. aureus and MRSA panel PREET+probe (Nose) Abnormal Negative [facility] Comment on above: Order Comment: Speci men Type: SWAB OF INTERNAL NOSE Ordering Facility: [facility] Address: [address] [place] [address] Result Comment: Posi tive for Staphylococcus aureus by PCR. Positive for MRSA by PCR Performed By: #### S APCR #### [facility] CLIA [id number] [address] [facility] [id number] [place] [address] [place] XR HUMERUS 2V [...] identified. IMPRESSION: No identifiable acute traumatic abnormality. Shingle Bolt Cutter: [facility] Transcribe Date/Time: Jan 15 2023 1:07P Dictated by : MJ BAUGH MD This examination was interpreted and the report reviewed and electronically signed by: MJ BAUGH MD on Jan 15 2023 1:08PM EST [id number] [facility] XR SHLDR >/=3V AP/ABDIFATAH AP/OTH R [...] identified. IMPRESSION: No identifiable acute traumatic abnormality. Shingle Bolt Cutter: [employer] Transcribe Date/Time: Jan 15 2023 1:07P Dictated by : MJ BAUGH MD This examination was interpreted and the report reviewed and electronically signed by: MJ BAUGH MD on Jan 15 2023 1:08PM EST [id number] [facility] CNOVon 09-02-2022 CNOV Office Visit (NEEPFV) JUANJOSE BOLDEN ([id number]) 1 M UPA Date Time Provider Department 09/02/22 2:30 PM EDITH DELCID During your visit today, we recorded the following information about you: Pulse Blood pressure Weight Height 78/minute 119/74 73 kg 1.651 m Edith Delcid APRN.CNP 09/02/2022 2:56 PM Signed [facility] EPILEPSY CENTER CHIEF COMPLAINT: seizures HISTORY OF [...] states he got a new phone. At [facility], he inquired on surgical options for epilepsy but today he states he is no longer interested in epilepsy surgery evaluation. He is taking LTG 200/200/400 and ZNS 200 mg qHS. Denies missed doses. Takes them at 7AM, 12PM and 9PM. He has a new job at [employer], works on an [employer] line. Does that four days per week. 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 Also in school at [employer] one day day per week. He quit smoking cigarettes since [facility], relates to financial concerns. He lives by [...] until 6 months seizure-free. 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 He plans to go to school to learn about medical marijuana. Wants to work in a dispensary. He asks if he is a candidate for VNS or RNS. States he has bad ADHD. Asks for a medication to help. He will discuss with his PCP. [facility] 01/2016: The patient management committee agreed that [...] tablets every coleen (more content not included)... [facility] HEALTHon 01-24-2022 ALLIED HEALTH HNO ID: [id number] Author: ZEYAD Lagunas Service: Radiology Author Type: [employer]ospace [employer] Sales Engineer Type: Allied Health Filed: 01/24/2022 9:33 AM [...] ZEYAD Lagunas January 24, 2022 9:33 AM [facility] CBC W Auto Differential pane l (Bld)on 01-24-2022 Basophils (Bld) [#/Vol] 0.04 10*3/uL Normal <0.11 [facility] Comment on above: Order Comment: Speci men Type: BLOOD SPECIMEN Ordering Facility: [facility] Address: [address] [place] [address] Performed By: #### 5 7021-8 #### [facility] CLIA [id number] [address] [place] [address] [place] Basophils/100 WBC (Bld) 0.5 % Normal [facility] Comment on above: Order Comment: Speci men Type: BLOOD SPECIMEN Ordering Facility: [facility] Address: [address] [place], [place] [address] Performed By: #### 5 7021-8 #### [facility] CLIA [id number] [address] [place] [address] [place] Differential cell count method Nom (Bld) Auto Normal [facility] Comment on above: Order Comment: Speci men Type: BLOOD SPECIMEN Ordering Facility: [facility] Address: [address] [place] [address] Performed By: #### 5 7021-8 #### [facility] CLIA [id number] [address] [place] [address] [place] Eosinophils (Bld) [#/Vol] 0.33 10*3/uL Normal <0.46 [facility] Comment on above: Order Comment: Speci men Type: BLOOD SPECIMEN Ordering Facility: [facility] Address: [address] [place] [address] Performed By: #### 5 7021-8 #### [facility] CLIA [id number] [address] [place] [address] [place] Eosinophils/100 WBC (Bld) 3.7 % Normal [facility] Comment on above: Order Comment: Speci men Type: BLOOD SPECIMEN Ordering Facility: [facility] Address: [address] [place], [place] [address] Performed By: #### 5 7021-8 #### [facility] CLIA [id number] [address] [place] [address] [place] Erythrocyte distribution width (RBC) [Ratio] 11.5 % Normal 11.5-15.0 [facility] Comment on above: Order Comment: Speci men Type: BLOOD SPECIMEN Ordering Facility: [facility] Address: [address] [place], [place] [address] Performed By: #### 5 7021-8 #### [facility] [place] [id number] [address] [place] [address] Hematocrit (Bld) [Volume fraction] 49.9 % Normal 39.0-51.0 [facility] Comment on above: Order Comment: Speci men Type: BLOOD SPECIMEN Ordering Facility: [facility] Address: [address] [place] [address] Performed By: #### 5 7021-8 #### [facility] [place] [id number] [address] [place] [address] Hemoglobin (Bld) [Mass/Vol] 16.1 g/dL Normal 13.0-17.0 [facility] Comment on above: Order Comment: Speci men Type: BLOOD SPECIMEN Ordering Facility: [facility] Address: [address] [place] [address] Performed By: #### 5 7021-8 #### [facility] IA [id number] [address] [place] [address] IMMATURE GRAN % 0.5 % Normal [facility] Comment on above: Order Comment: Speci men Type: BLOOD SPECIMEN Ordering Facility: [facility] Address: [address] [place] [address] Performed By: #### 5 7021-8 #### [facility] IA [id number] [address] [place] [address] IMMATURE GRAN ABS 0.04 k/uL Normal <0.10 [facility] Comment on above: Order Comment: Speci men Type: BLOOD SPECIMEN Ordering Facility: [facility] Address: [address] [place] [address] Performed By: #### 5 7021-8 #### [facility] IA [id number] [address] [place] [address] Lymphocytes (Bld) [#/Vol] 3.99 10*3/uL Normal 1.00-4.00 [facility] Comment on above: Order Comment: Speci men Type: BLOOD SPECIMEN Ordering Facility: [facility] Address: [address] [place] [address] Performed By: #### 5 7021-8 #### [facility] CLIA [id number] [address] [place] [address] [place] [facility] Lymphocytes/100 WBC (Bld) 45.2 % Normal [facility] Comment on above: Order Comment: Speci men Type: BLOOD SPECIMEN Ordering Facility: [facility] Address: [address] [place] [address] Performed By: #### 5 7021-8 #### [facility] IA [id number] [address] [place] [address] [place] MCH (RBC) [Entitic mass] 29.5 pg Normal 26.0-34.0 [facility] Comment on above: Order Comment: Speci men Type: BLOOD SPECIMEN Ordering Facility: [facility] Address: [address] [place] [address] Performed By: #### 5 7021-8 #### [facility] IA [id number] [address] [place] [address] [place] MCHC (RBC) [Mass/Vol] 32.3 g/dL Normal 30.5-36.0 [facility] Comment on above: Order Comment: Speci men Type: BLOOD SPECIMEN Ordering Facility: [facility] Address: [address] [place], [place] [address] Performed By: #### 5 7021-8 #### [facility] IA [id number] [address] [place] [address] [place] MCV (RBC) [Entitic vol] 91.6 fL Normal 80.0-100.0 L [facility] Comment on above: Order Comment: Speci men Type: BLOOD SPECIMEN Ordering Facility: [facility] Address: [address] [place], [place] [address] Performed By: #### 5 7021-8 #### [facility] CLIA [id number] [address] [place] [address] [place] Monocytes (Bld) [#/Vol] 0.63 10*3/uL Normal <0.87 [facility] Comment on above: Order Comment: Speci men Type: BLOOD SPECIMEN Ordering Facility: [facility] Address: [address] [place], [place] [address] Performed By: #### 5 7021-8 #### [facility] CLIA [id number] [address] [place] [address] [place] Monocytes/100 WBC (Bld) 7.1 % Normal [facility] Comment on above: Order Comment: Speci men Type: BLOOD SPECIMEN Ordering Facility: [facility] Address: [address] [place] [address] Performed By: #### 5 7021-8 #### [facility] CLIA [id number] [address] [place] [address] [place] Neutrophils (Bld) [#/Vol] 3.80 10*3/uL Normal 1.45-7.50 [facility] Comment on above: Order Comment: Speci men Type: BLOOD SPECIMEN Ordering Facility: [facility] Address: [address] [place] [address] Performed By: #### 5 7021-8 #### [facility] CLIA [id number] [address] [place] [address] [place] Neutrophils/100 WBC (Bld) 43.0 % Normal [facility] Comment on above: Order Comment: Speci men Type: BLOOD SPECIMEN Ordering Facility: [facility] Address: [address] [place], [place] [address] Performed By: #### 5 7021-8 #### [facility] CLIA [id number] [address] [place] [address] [place] Nucleated RBC (Bld) [#/Vol] 10*3/uL Normal <0.01 [facility] Comment on above: Order Comment: Speci men Type: BLOOD SPECIMEN Ordering Facility: [facility] Address: [address] [place], [place] [address] Performed By: #### 5 7021-8 #### [facility] CLIA [id number] [address] [place] [address] [place] Nucleated RBC/100 WBC (Bld) [Ratio] 0.0 /100 WBC Normal [facility] Comment on above: Order Comment: Speci men Type: BLOOD SPECIMEN Ordering Facility: [facility] Address: [address] [place], [place] [address] Performed By: #### 5 7021-8 #### [facility] IA [id number] [address] [place] [address] [place] Platelet mean volume (Bld) [Entitic vol] 8.5 fL Low 9.0-12.7 [facility] Comment on above: Order Comment: Speci men Type: BLOOD SPECIMEN Ordering Facility: [facility] Address: [address] [place], [place] [address] Performed By: #### 5 7021-8 #### [facility] IA [id number] [address] [place] [address] [place] Platelets (Bld) [#/Vol] 375 10*3/uL Normal 150-400 [facility] Comment on above: Order Comment: Speci men Type: BLOOD SPECIMEN Ordering Facility: [facility] Address: [address] [place], [place] [address] Performed By: #### 5 7021-8 #### [facility] CLIA [id number] [address] [place], [place] [address] [place] RBC (Bld) [#/Vol] 5.45 10*6/uL Normal 4.20-6.00 [facility] Comment on above: Order Comment: Speci men Type: BLOOD SPECIMEN Ordering Facility: [facility] Address: [address] [place], [place] [address], [place] [address] Performed By: #### 5 7021-8 #### [facility] CLIA [id number] [address] [place], [place] [address] [place] WBC (Bld) [#/Vol] 8.83 10*3/uL Normal 3.70-11.00 [facility] Comment on above: Order Comment: Speci men Type: BLOOD SPECIMEN Ordering Facility: [facility] Address: [place] [address] Performed By: #### 5 7021-8 #### [facility] CLIA [id number] [address] [place], [place] [address] [facility] [place] [facility] BRAIN WO IVCONon 01-25-20 [...] base and imaged soft tissues are unremarkable. Recoverer (topogram) images: No additional findings. IMPRESSION: No acute intracranial hemorrhage identified. Shingle Bolt Cutter: [facility] Transcribe Date/Time: Jan 24 2022 9:47A Dictated by : JAGDEEP MALHOTRA MD This examination was interpreted and the report reviewed and electronically signed by: JAGDEEP MALHOTRA MD on Jan 24 2022 9:56AM EST [id number] CN [facility] metabolic 2000 panelon 01-24-2022 Albumin [Mass/Vol] 5.4 g/dL High 3.9-4.9 [facility] Comment on above: Order Comment: Speci men Type: BLOOD SPECIMEN Ordering Facility[facility] Address: [address] [place] [address] Performed By: #### 5 7021-8 #### [facility] CLIA [id number] [address] [place] [address] [place] [facility] ALP [Catalytic activity/Vol] 138 U/L High 38-113 [facility] Comment on above: Order Comment: Speci men Type: BLOOD SPECIMEN Ordering Facility: [facility] Address: [address] [place] [address] Performed By: #### 5 7021-8 #### [facility] CLIA [id number] [address] [place] [address] ALT [Catalytic activity/Vol] 74 U/L High 10-54 [facility] Comment on above: Order Comment: Speci men Type: BLOOD SPECIMEN Ordering Facility: [facility] Address: [address] [place] [address] Performed By: #### 5 7021-8 #### [facility] CLIA [id number] [address] [place], [place] [id number] [place] Anion gap [Moles/Vol] 30 mmol/L High 9-18 [facility] Comment on above: Order Comment: Speci men Type: BLOOD SPECIMEN [facility]ing Facility[facility] Address: [address] [place] [address] Performed By: #### 5 7021-8 #### [facility] CLIA [id number] [address] [place] [address] [place] AST [Catalytic activity/Vol] 43 U/L High 14-40 [facility] Comment on above: Order Comment: Speci men Type: BLOOD SPECIMEN Ordering Facility: [facility] Address: [address] [place] [address] Performed By: #### 5 7021-8 #### [facility] CLIA [id number] [address] [place] [address] [place] Bilirubin [Mass/Vol] 0.2 mg/dL Normal 0.2-1.3 [facility] Comment on above: Order Comment: Speci men Type: BLOOD SPECIMEN [facility]ing Facility[facility] Address: [address] [place] [address] Performed By: #### 5 7021-8 #### [facility] CLIA [id number] [facility] [place] [address] [place] Calcium [Mass/Vol] 10.0 mg/dL Normal 8.5-10.2 [facility] Comment on above: Order Comment: Speci men Type: BLOOD SPECIMEN Ordering Facility[facility] Address: [address] [place], [place] [address] Performed By: #### 5 7021-8 #### [facility] CLIA [id number] [address] [place] [address] [place] Chloride [Moles/Vol] 98 mmol/L Normal 97-105 [facility] Comment on above: Order Comment: Speci men Type: BLOOD SPECIMEN Ordering Facility[facility] Address: [address] [place], [place] [address] Performed By: #### 5 7021-8 #### [facility] CLIA [id number] [facility] [address] [place] [address] [place] CO2 [Moles/Vol] 12 mmol/L Low 22-30 [facility] Comment on above: Order Comment: Speci men Type: BLOOD SPECIMEN Ordering Facility: [facility] Address: [address] [place] [address] [place] [address] Performed By: #### 5 7021-8 #### [facility] IA [id number] [address] [place] [address] STATES OF [facility] Creatinine [Mass/Vol] 0.87 mg/dL Normal 0.73-1.22 [facility] Comment on above: Order Comment: Kisha allison Type: BLOOD SPECIMEN Ordering Facility: [facility] Address: [address] [place], [place] [address] Performed By: #### 5 7021-8 #### [facility] [id number] [address] [place] [address] ESTIMATED GLOMERULAR FILTRATION RATE 126 mL/min/1.73m??? Normal >=60 [facility] Comment on above: Order Comment: Kisha allison Type: BLOOD SPECIMEN Ordering Facility: [facility] Address: [address] [place] [address] Result Comment: Luz mated Glomerular Filtration Rate [...] GFR. Performed By: #### 5 7021-8 #### [facility] IA [id number] [address] [place], [place] [address] [place] Glucose [Mass/Vol] 121 mg/dL High 74-99 [facility] Comment on above: Order Comment: Kisha allison Type: BLOOD SPECIMEN Ordering Facility: [facility] Address: [address] [place], [place] [address] Result Comment: The [place] Diabetes Association (ADA) provides guidance for cutoff [...] Standards of Medical Care in Diabetes 2016, [place] Diabetes Association. Diabetes Care. 2016.39(Suppl 1). Performed By: #### 5 7021-8 #### [facility] IA [id number] [address] [place] [address] [place] Potassium [Moles/Vol] 4.3 mmol/L Normal 3.7-5.1 [facility] Comment on above: Order Comment: Hernáni keegan Type: BLOOD SPECIMEN Ordering Facility: [facility] Address: [address] [place] [address] Performed By: #### 5 7021-8 #### [facility] IA [id number] [address] [place] [address] [place] Protein [Mass/Vol] 8.9 g/dL High 6.3-8.0 [facility] Comment on above: Order Comment: Hernáni keegan Type: BLOOD SPECIMEN Ordering Facility: [facility] Address: [address] [place] [address] Performed By: #### 5 7021-8 #### [facility] IA [id number] [address] [place] [address] [place] Sodium [Moles/Vol] 140 mmol/L Normal 136-144 [facility] Comment on above: Order Comment: Speci men Type: BLOOD SPECIMEN Ordering Facility: [facility] Address: [address] [place] [address] Performed By: #### 5 7021-8 #### [facility] CLIA [id number] [address] [place], [place] [address] [place] Urea nitrogen [Mass/Vol] 17 mg/dL Normal 9-24 [facility] Comment on above: Order Comment: Speci men Type: BLOOD SPECIMEN Ordering Facility: [facility] Address: [address] [place], [place] [address] [address] Performed By: #### 5 7021-8 #### [facility] [id number] [facility] [address] ATTN BHARGAVI [address] ED NOTEon 01-24-2022 ED NOTE HNO ID: [id number] Author: Gretchen Thomas RN Service: ? Author [...] discharge. Patient provided with MyChart activation code. [facility] ED NOTE HNO ID: [id number] Author: Gretchen Thomas RN Service: ? Author Type: Registered Nurse Type: ED Notes Filed: 01/24/2022 11:40 AM Note Text: PT given pants to wear home. Pt has all belongings and is steady on his feet. [facility] ED NOTE HNO ID: [id number] Author: Gretchen Thomas RN Service: ? Author Type: Registered Nurse Type: ED Notes Filed: 01/24/2022 10:53 AM Note Text: Pt awake and answering questions appropriately. Pt drank water without issue. LIP at the bedside. [facility] ED NOTE HNO ID: [id number] Author: Gretchen Thomas RN Service: ? Author Type: Registered Nurse Type: ED Notes Filed: 01/24/2022 10:12 AM Note Text: Mom at the bedside. [facility] ED NOTE HNO ID: [id number] Author: Gretchen Thomas RN Service: ? Author Type: Registered Nurse Type: ED Notes Filed: 01/24/2022 8:56 AM Note Text: 1 mg ativan given per MD verbal order. [facility] ED NOTE HNO ID: [id number] Author: Daphne Qureshi RN Service: ? Author Type: Registered Nurse Type: ED Notes Filed: 01/24/2022 8:53 AM Note Text: Bed: ED-15 Expected date: Expected time: Means of arrival: Comments: ems [facility] ED PROV NOTEon 01-24-2022 ED PROV NOTE HNO ID: [id number] Author: Héctor Leo DO Service: Emergency Medicine [...] x 1-2 days; 2 weeks in NICU; [facility] PAST SURGICAL HISTORY Procedure Laterality Date - [...] Client S (more content not included)... Normal [facility] Ethanol [Mass/Vol] mg/dL Normal <11 [facility] Comment on above: Order Comment: Speci men Type: BLOOD SPECIMEN Ordering Facility: [facility] Address: [address] [place] [address] Performed By: #### 5 7021-8 #### [facility] CLIA [id number] [address] [place] [address] [place] [facility] Magnesium [Mass/Vol] 2.4 mg/dL High 1.7-2.3 [facility] Comment on above: Order Comment: Speci men Type: BLOOD SPECIMEN [facility]ing Facility: [facility] [facility] Address: [address] [place] [address] Performed By: #### 5 [id number] #### [facility] CLIA [id number] [address] [place] [address] [place] TOX SCREEN ROUT URon 022 Amphetamines Confirm (U) [Mass/Vol] Negative Normal Negative [facility] Comment on above: Order Comment: Speci men Type: URINE SPECIMEN Ordering Facility: [facility] Address: [address] [place] [address] Result Comment: Cuto ff threshold at 1000 ng/mL. Performed By: #### U TOX2 #### [facility] CLIA [id number] [address] [place], [place] [id number] [place] BARBITURATES, URINE Negative Normal Negative [facility] Comment on above: Order Comment: Speci men Type: URINE SPECIMEN Ordering Facility: [facility] Address: [address] [place] [address] Result Comment: Cuto ff threshold at 200 ng/mL. Performed By: #### U TOX2 #### [facility] CLIA [id number] [facility] [place] [address] [place] BENZODIAZEPINES, UR Negative Normal Negative [facility] Comment on above: Order Comment: Speci men Type: URINE SPECIMEN Ordering Facility: [facility] Address: [address] [place] [address] Result Comment: Cuto ff threshold at 200 ng/mL. Performed By: #### U TOX2 #### [facility] CLIA [id number] [address] [place] [address] [place] CANNABINOIDS,URINE Positive Abnormal Negative [facility] Comment on above: Order Comment: Speci men Type: URINE SPECIMEN Ordering Facility: [facility] Address: [address] [place] [address] Result Comment: Cuto ff threshold at 50 ng/mL. Performed By: #### U TOX2 #### [facility] CLIA [id number] [address] [place] [address] [place] Cocaine Ql (U) Negative Normal Negative [facility] Comment on above: Order Comment: Speci men Type: URINE SPECIMEN Ordering Facility: [facility] Address: [address] [place] [address] Result Comment: Cuto ff threshold at 300 ng/mL. Performed By: #### U TOX2 #### [facility] CLIA [id number] [address] [place], [place] [id number] [place] Ethanol (U) [Mass/Vol] <11 Normal <11 [facility] Comment on above: Order Comment: Speci men Type: URINE SPECIMEN Ordering Facility: [facility] Address: [address] [place] [address] Performed By: #### U TOX2 #### [facility] [place] [id number] [address] [place] [address] Opiates Screen Ql (U) Negative Normal Negative [facility] Comment on above: Order Comment: Speci men Type: URINE SPECIMEN Ordering Facility: [facility] Address: [address] [place] [address] Result Comment: Cuto ff threshold at 300 ng/mL. Performed By: #### U TOX2 #### [facility] CLIA [id number] [address] [place] [address] [place] oxyCODONE cutoff Screen (U) [Mass/Vol] Negative Normal Negative [facility] Comment on above: Order Comment: Speci men Type: URINE SPECIMEN Ordering Facility: [facility] Address: [address] [place] [address] Result Comment: Cuto ff threshold at 100 ng/mL. Performed By: #### U TOX2 #### [facility] [place] [id number] [address] [place] [address] Phencyclidine Ql (U) Negative Normal Negative [facility] Comment on above: Order Comment: Speci men Type: URINE SPECIMEN Ordering Facility: [facility] Address: [address] [place] [address] Result Comment: Cuto ff threshold at 25 ng/mL. Performed By: #### U TOX2 #### [facility] [place] [id number] [address] [place] [address] OF [place] lamoTRIgine SerPl-mCncon lamoTRIgine [Mass/Vol] 11.4 ug/mL Normal 1.0-13.0 [facility] Comment on above: Order Comment: Speci men Type: BLOOD SPECIMEN Ordering Facility: [facility] Address: [address] [place], [place] [id number] Result Comment: This test was developed and its performance characteristics determined by [facility]'s [facility] ([facility]). It has not been cleared or approved by the FDA. [facility] is regulated under CLIA as qualified to perform high-complexity testing. This test is used for clinical purposes. It should not be regarded as investigational or for research. Performed By: #### 6 948-4 #### [facility] CLIA [id number] [address] [place] [address] [place] CBC W MANUAL DIFFon 04-11-20 19 ATYPICAL LYMPH # Normal [facility] Comment on above: Performed By: #### Lesly SANDERS #### [facility] [address] [place] [address] Pablo Deanna ATYPICAL LYMPH % Normal [facility] Comment on above: Performed By: #### Lesly SANDERS #### [facility] [address] [place] [address] Pablo Deanna BAND # 0.1 103/ul Normal 0.0-0.3 [facility] Comment on above: Performed By: #### Lesly SANDERS #### [facility] [address] [place] [address] Pablo Deanna BAND % 1 % Normal 0-5 [facility] Comment on above: Performed By: #### Lesly SANDERS #### [facility] [address] [place] [address] Pablo Deanna BASOM % 0.0 % Critically low 0.2-2.0 [facility] Comment on above: Performed By: #### Lesly SANDERS #### [facility] [address] [place], [place] [id number] Pablo Deanna Basophils #/vol (Bld) 0.00 103/ul Normal 0.00-0.10 [facility] Comment on above: Performed By: #### Lesly SANDERS #### [facility] [address] [place] [address] Pablo Deanna BLAST # Normal [facility] Comment on above: Performed By: #### Lesly SANDERS #### [facility] [address] [id number] [place] Deanna BLAST % Normal [facility] Comment on above: Performed By: #### Lesly SANDERS #### [facility] [address] [place], [place] [id number] [place] Deanna Eosinophils #/vol (Bld) 0.12 103/ul Normal 0.00-0.70 [facility] Comment on above: Performed By: #### Lesly SANDERS #### [facility] [address] [place], [place] [address] [place] Deanna Eosinophils/100 WBC (Bld) 2.0 % Normal 0.9-7.0 [facility] Comment on above: Performed By: #### Lesly SANDERS #### [facility] [address] [place] [address] Pablo Deanna Erythrocyte distribution width Ratio (RBC) 11.2 % Normal 11.0-15.0 [facility] Comment on above: Performed By: #### Lesly SANDERS #### [facility] [address] [place] [address] Pablo Deanna Hematocrit Volume Fraction (Bld) 42.3 % Normal 42.0-54.0 [facility] Comment on above: Performed By: #### Lesly SANDERS #### [facility] [address] [place], [place] [address] [place] Deanna Hemoglobin mass conc (Bld) 14.5 g/dL Normal 14.0-18.0 [facility] Comment on above: Performed By: #### Lesly SANDERS #### [facility] [address] [place] [address] Pablo Deanna Lymphocytes #/vol (Bld) 1.57 103/ul Normal 1.20-3.80 [facility] Comment on above: Performed By: #### Lesly SANDERS #### [facility] [address] [place], [place] [address] [place] Deanna Lymphocytes/100 WBC (Bld) 27.0 % Normal 20.5-60.0 [facility] Comment on above: Performed By: #### Lesly SANDERS #### [facility] [address] [address] Pablo Huerta MCH Entitic mass (RBC) 29.6 pg Normal 25.9-34.0 [facility] Comment on above: Performed By: #### Lesly SANDERS #### [facility] [address] [place] [address] Pablo Huerta MCHC mass conc (RBC) 34.3 g/dL Normal 29.9-35.2 [facility] Comment on above: Performed By: #### Lesly SANDERS #### [facility] [address] [place] [address] Pablo Huerta MCV Entitic volume (RBC) 86.3 fL Normal 80.0-94.0 [facility] Comment on above: Performed By: #### Lesly SANDERS #### [facility] [address] [place] [address] Pablofranki Johnsonen METAMYELOCYTE # Normal [facility] Comment on above: Performed By: #### Lesly SANDERS #### [facility] [address] [place] [address] Pablo Deanna METAMYELOCYTE % Normal [facility] Comment on above: Performed By: #### Lesly SANDERS #### [facility] [address] [place] [address] Pablo Deanna MONOM# 0.23 103/ul Critically low 0.30-0.[address] [facility] Comment on above: Performed By: #### Lesly SANDERS #### [facility] [address] [place] [address] Pablo Deanna MONOM% 4.0 % Normal 1.7-12.0 [facility] Comment on above: Performed By: #### Lesly SANDERS #### [facility] [address] [place] [address] Pablo Deanna MYELOCYTE # Normal [facility] Comment on above: Performed By: #### Lesly SANDERS #### [facility] [address] [place] [address] Pablo Deanna MYELOCYTE % Normal [facility] Comment on above: Performed By: #### Lesly SANDERS #### [facility] [address] [id number] Pablo Deanna NRBC Normal [facility] Comment on above: Performed By: #### Lesly SANDERS #### [facility] [address] [id number] [place] Deanna Platelet mean volume Entitic volume (Bld) 8.8 fL Critically low 9.5-13.5 [facility] Comment on above: Performed By: #### Lesly SANDRES #### [facility] [address] [id number] Pablo Deanna Platelets #/vol (Bld) 348 103/ul Normal 150-450 [facility] Comment on above: Performed By: #### Lesly SANDERS #### [facility] [address] [address] Pablo Deanna RBC #/vol (Bld) 4.90 106/ul Normal 4.70-6.10 The [facility] Comment on above: Performed By: ###Trent SANDERS #### [facility] [address] [place] [address] Pablo Deanna SEG # 3.83 103/ul Normal 1.40-6.50 [facility] Comment on above: Performed By: ###Trent SANDERS #### [facility] [address] [place] [address] Pablo Deanna Segmented neutrophils/100 WBC (Bld) 66.0 % Normal 43.0-75.0 [facility] Comment on above: Performed By: ###Trent SANDERS #### [facility] [address] [id number] Pablo Deanna WBC #/vol (Bld) Normal 4.0-11.[address] [facility] Comment on above: Performed By: #### Lesly SANDERS #### [facility] [address] [id number] Pablo Deanna WBC #/vol (Bld) 5.8 103/ul Normal 4.0-11.[address] [facility] Comment on above: Performed By: ###Trent SANDERS #### [facility] [address] [id number] [address] HEAD WO MIRIANon 04-11-2019 CT HEAD WO CON Patient: JUANJOSE BOLDEN Exam Date: 04/11/2019 : 2000 Gender:M Ordering : DR SUMMER DUQUE M.D. Admission #: [id number] Family : Order #: [id number] CLICK HERE TO VIEW EXAM , RADIOLOGY [...] Allen M.D. on 04/11/2019 at 20:49 Normal [facility] PROF 14(COMP METB)on 019 Albumin mass conc 4.2 g/dL Normal 3.5-5.0 [facility] Comment on above: Performed By: #### C MP #### [facility] [address] [address] Pablofranki Huerta Albumin/Globulin mass ratio 1.1 {ratio} Normal [facility] Comment on above: Performed By: #### C MP #### [facility] [address] [id number] Pablo Deanna ALP enzyme act/vol 131 U/L Critically high 38-126 [facility] Comment on above: Performed By: #### C MP #### [facility] [address] [id number] Pablo Deanna ALT enzyme act/vol 32 U/L Normal 21-72 [facility] Comment on above: Performed By: #### C MP #### [facility] [address] [phone] [place] Deanna Anion gap molar conc 19.4 mmol/L Normal [facility] Comment on above: Performed By: #### C MP #### [facility] [address] [id number] Pablo Deanna AST enzyme act/vol 26 U/L Normal 17-59 [facility] Comment on above: Performed By: #### C MP #### [facility] [address] [id number] [place] Deanna Bilirubin Ql (U) 0.2 mg/dL Normal 0.2-1.3 The [facility] Comment on above: Performed By: #### C MP #### [facility] [address] [id number] Pablo Deanna Calcium mass conc 9.3 mg/dL Normal 8.4-10.2 [facility] Comment on above: Performed By: #### C MP #### [facility] [address] [address] Pablo Deanna Chloride molar conc 103 mmol/L Normal 98-107 [facility] Comment on above: Performed By: #### C MP #### [facility] [address] [address] Pablo Deanna CO2 molar conc 23.6 mmol/L Normal 22.0-30.0 [facility] Comment on above: Performed By: #### C MP #### [facility] [address] [address] Pablo Deanna Creatinine mass conc 1.24 mg/dL Normal 0.66-1.25 [facility] Comment on above: Performed By: #### C MP #### [facility] [address] [address] Pablo Deanna EGFR-AF TURKISH >60 Normal >=60 [facility] Comment on above: Performed By: #### C MP #### [facility] [address] [address] [place] Deanna EGFR-NON AF TURKISH >60 Normal >=60 [facility] Comment on above: Performed By: #### C MP #### [facility] [address] [address] Pablo Deanna Globulin mass conc (S) 3.9 g/dL Normal [facility] Comment on above: Performed By: #### C MP #### [facility] [address] [address] Pablo Johnsonen Glucose mass conc 89 mg/dL Normal 74-106 [facility] Comment on above: Performed By: #### C MP #### [facility] [address] [place] [address] Pablo Deanna Potassium molar conc 4.0 mmol/L Normal 3.4-5.0 [facility] Comment on above: Performed By: #### C MP #### [facility] [address] [place] [address] Pablo Deanna Protein mass conc 8.1 g/dL Normal 6.1-8.2 [facility] Comment on above: Performed By: #### C MP #### [facility] [address] [place] [address] Pablo Johnsonen Sodium molar conc 142 mmol/L Normal 137-145 [facility] Comment on above: Performed By: #### C MP #### [facility] [address] [place] [address] Pablofranki Johnsonen Urea nitrogen mass conc 20.0 mg/dL Critically high 6.4-19. 3 [facility] Comment on above: Performed By: #### C MP #### [facility] [address] [place] [address] Pablo Johnsonen Urea nitrogen/Creatinine mass ratio 16.1 mg/mg Normal [facility] Comment on above: Performed By: #### C MP #### [facility] [address] [place] [address] Pablo Deanna LAMOTRIGINEon 04-07-2019 Lamotrigine, Serum 10.8 ug/mL Normal 2.0-20.0 [facility] Comment on above: Result Comment: This test was developed and its performance characteristics determined by [facility]. It has not been cleared or approved by the Food and Drug Administration. Detection Limit = 1.0 Performed By: #### L AMOT #### [facility] [address] [place] [address] Pablo Deanna ACETAMINOPHENon 04-05-2019 Acetaminophen mass conc <1.0 Critically low 10.1-30. 0 [facility] Comment on above: Performed By: #### S ALTORI, CMP, ACET #### [facility] [address] [place] [address] Pablo Deanna CBC AUTO DIFFon 04-05-2019 Basophils #/vol (Bld) 0.0 103/ul Normal 0.0-0.1 [facility] Comment on above: Performed By: #### C BC #### [facility] [address] [place] [address] Pablo Deanna Basophils/100 WBC (Bld) 0.4 % Normal 0.2-2.0 [facility] Comment on above: Performed By: #### C BC #### [facility] [address] [place] [address] Pablo Deanna Eosinophils #/vol (Bld) 0.2 103/ul Normal 0.0-0.7 [facility] Comment on above: Performed By: #### C BC #### [facility] [address] [place] [address] Pablo Deanna Eosinophils/100 WBC (Bld) 2.7 % Normal 0.9-7.0 [facility] Comment on above: Performed By: #### C BC #### [facility] [address] [place] [address] Pablofranki Huerta Erythrocyte distribution width Ratio (RBC) 11.3 % Normal 11.0-15.0 [facility] Comment on above: Performed By: #### C BC #### [facility] [address] [place] [address] Pablo Deanna Hematocrit Volume Fraction (Bld) 45.1 % Normal 42.0-54.0 [facility] Comment on above: Performed By: #### C BC #### [facility] [address] [place] [address] Pablo Deanna Hemoglobin mass conc (Bld) 15.0 g/dL Normal 14.0-18.0 [facility] Comment on above: Performed By: #### C BC #### [facility] [address] [place] [address] Pablo Deanna IG # 0.01 10e3/ul Normal 0.00-0.03 [facility] Comment on above: Performed By: #### C BC #### [facility] [address] [place], [place] [address] Pablo Deanna IG % 0.1 % Normal 0.0-0.5 [facility] Comment on above: Performed By: #### C BC #### [facility] [address] [place] [address] Pablo Deanna Lymphocytes #/vol (Bld) 3.0 103/ul Normal 1.2-3.8 [facility] Comment on above: Performed By: #### C BC #### [facility] [address] [place] [address] Pablo Deanna Lymphocytes/100 WBC (Bld) 43.6 % Normal 20.5-60.0 [facility] Comment on above: Performed By: #### C BC #### [facility] [address] [place] [address] Pablofranki Huerta MANUAL DIFF REQ NO Normal [facility] Comment on above: Performed By: #### C BC #### [facility] [address] [place] [address] Pablo Deanna MCH Entitic mass (RBC) 29.0 pg Normal 25.9-34.0 [facility] Comment on above: Performed By: #### C BC #### [facility] [address] [place] [address] Pablofranki Huerta MCHC mass conc (RBC) 33.3 g/dL Normal 29.9-35.2 [facility] Comment on above: Performed By: #### C BC #### [facility] [address] [place], [place] [address] Pablo Deanna MCV Entitic volume (RBC) 87.2 fL Normal 80.0-94.0 [facility] Comment on above: Performed By: #### C BC #### [facility] [address] [place] [address] Pablo Deanna Monocytes #/vol (Bld) 0.4 103/ul Normal 0.3-0.8 [facility] Comment on above: Performed By: #### C BC #### [facility] [address] [place], [place] [address] Pablo Deanna Monocytes/100 WBC (Bld) 5.2 % Normal 1.7-12.0 [facility] Comment on above: Performed By: #### C BC #### [facility] [address] [place], [place] [address] Pablo Deanna Neutrophils #/vol (Bld) 3.3 103/ul Normal 1.4-6.5 [facility] Comment on above: Performed By: #### C BC #### [facility] [address] [place], [place] [address] Pablo Deanna Neutrophils/100 WBC (Bld) 48.0 % Normal 43.0-75.0 [facility] Comment on above: Performed By: #### C BC #### [facility] [address] [place], [place] [address] Pablofranki Huerta Platelet mean volume Entitic volume (Bld) 8.5 fL Critically low 9.5-13.5 [facility] Comment on above: Performed By: #### C BC #### [facility] [address] [place], [place] [address] Pablofranki Huerta Platelets #/vol (Bld) 301 103/ul Normal 150-450 [facility] Comment on above: Performed By: #### C BC #### [facility] [address] [place], [place] [address] Pablo Deanna RBC #/vol (Bld) 5.17 106/ul Normal 4.70-6.10 [facility] Comment on above: Performed By: #### C BC #### [facility] [address] [place] [address] Pablo Deanna WBC #/vol (Bld) 6.9 103/ul Normal 4.0-11.[address] [facility] Comment on above: Performed By: #### C BC #### [facility] [address] DRUG SCREEN RAPID (URINE)on 04-05-2019 AMP Negative Normal NEGATIVE [facility] Comment on above: Performed By: #### E RUR, DRUGRPD #### [facility] [address] [place] [address] Pablo Deanna BAR Negative Normal NEGATIVE [facility] Comment on above: Performed By: #### E RUR, DRUGRPD #### [facility] [address] [place] [address] Pablo Deanna BUP Negative Normal NEGATIVE [facility] Comment on above: Performed By: #### E RUR, DRUGRPD #### [facility] [address] [place] [address] BZO Positive Normal NEGATIVE [facility] Comment on above: Performed By: #### E RUR, DRUGRPD #### [facility] [address] [place] [address] ARUNA Negative Normal NEGATIVE [facility] Comment on above: Performed By: #### E RUR, DRUGRPD #### [facility] [address] [place] [address] CUT-OFFS SEE BELOW Normal [facility] Comment on above: Result Comment: AMP [...] Performed By: #### E RUR, DRUGRPD #### [facility] [address] [place] [address] DRUG CUT HEADER DRUG CLASS TEST SYSTEM CUT-OFF CONCENTRATIONS ARE FOLLOWS: Normal [facility] Comment on above: Performed By: #### E RUR, DRUGRPD #### [facility] [address] [place] [address] Pablo Deanna mAMP Negative Normal NEGATIVE [facility] Comment on above: Performed By: #### E RUR, DRUGRPD #### [facility] [address] [place] [address] Pablo Deanna MTD Negative Normal NEGATIVE [facility] Comment on above: Performed By: #### E RUR, DRUGRPD #### [facility] [address] [place] [address] Pablo Deanna OPI Negative Normal NEGATIVE [facility] Comment on above: Performed By: #### E RUR, DRUGRPD #### [facility] [address] [place] [address] Pablo Deanna OXY Negative Normal NEGATIVE [facility] Comment on above: Performed By: #### E RUR, DRUGRPD #### [facility] [address] [place] [address] Pablo Deanna PCP Positive Normal NEGATIVE [facility] Comment on above: Performed By: #### E RUR, DRUGRPD #### [facility] [address] [place] [address] Pablo Deanna PPX Negative Normal NEGATIVE [facility] Comment on above: Performed By: #### E RUR, DRUGRPD #### [facility] [address] [place] [address] Pablo Deanna TCA Negative Normal NEGATIVE [facility] Comment on above: Performed By: #### E RUR, DRUGRPD #### [facility] [address] [place] [address] Pablo Deanna THC Negative Normal NEGATIVE [facility] Comment on above: Performed By: #### E RUR, DRUGRPD #### [facility] [address] [place] [address] Pablo Deanna ER URINE PROFILEon 9 Bilirubin mass conc Negative Normal NEGATIVE [facility] Comment on above: Performed By: #### E RUR, DRUGRPD #### [facility] [address] [place] [address] Pablo Deanna BLOOD Negative Normal NEGATIVE [facility] Comment on above: Performed By: #### E RUR, DRUGRPD #### [facility] [address] [place] [address] Pablo Deanna Clarity Nom (U) CLEAR Normal [facility] Comment on above: Performed By: #### E RUR, DRUGRPD #### [facility] [address] [place] [address] Pablo Deanna Color Nom (U) LT. YELLOW Normal YELLOW The [facility] Comment on above: Performed By: #### E RUR, DRUGRPD #### [facility] [address] [place] [address] Pablo Deanna ERUAHD A micrscopic examination will be performed if indicated. Normal [facility] Comment on above: Performed By: #### E RUR, DRUGRPD #### [facility] [address] [place] [address] Pablo Deanna Glucose mass conc Negative Normal NEGATIVE [facility] Comment on above: Performed By: #### E RUR, DRUGRPD #### [facility] [address] [place] [address] Pablo Deanna Ketones Ql (U) Negative Normal NEGATIVE The [facility] Comment on above: Performed By: #### E RUR, DRUGRPD #### [facility] [address] [place] [address] Pablo Deanna Nitrite Ql (U) Negative Normal NEGATIVE [facility] Comment on above: Performed By: #### E RUR, DRUGRPD #### [facility] [address] [place] [address] Pablo Deanna pH (Bld) 6.0 Normal 5-9 [facility] Comment on above: Performed By: #### E RUR, DRUGRPD #### [facility] [address] [place] [address] Pablo Deanna Protein mass conc (U) Negative Normal [facility] Comment on above: Performed By: #### E RUR, DRUGRPD #### [facility] [address] [address] Pablo Huerta SPEC GRAVITY 1.020 Normal 1.005-<=1.02 5 [facility] Comment on above: Performed By: #### E RUR, DRUGRPD #### [facility] [address] [address] Pablo Huerta UR MICRO IND NOT INDICATED Normal [facility] Comment on above: Result Comment: Prev iously reported as: INDICATED On 04/05/2019 01:37 By MH9 Performed By: #### E RUR, DRUGRPD #### [facility] [address] [place], [place] [id number] Pablo Huerta Urobilinogen Qn (U) 0.2 EU/dl Normal [facility] Comment on above: Performed By: #### E RUR, DRUGRPD #### [facility] [address] [place] [address] Pablo Huerta WBC #/vol (Bld) Negative Normal NEGATIVE [facility] Comment on above: Performed By: #### E RUR, DRUGRPD #### [facility] [address] [id number] Pablo Huerta ETHANOL (BLD ALC)on 04-05-20 19 Ethanol mass conc mg/dL Normal [facility] Comment on above: Performed By: #### E TH #### [facility] [address] [place], [place] [id number] Pablo Huerta Ethanol mass conc NOTE: 80 mg/dl is the legal limit for a blood alcohol level Normal [facility] Comment on above: Performed By: #### E TH #### [facility] [address] [id number] Pablo Huerta PROF 14(COMP METB)on 019 Albumin mass conc 4.4 g/dL Normal 3.5-5.0 [facility] Comment on above: Performed By: #### S ALYC, CMP, ACET #### [facility] [address] [address] Pablo Huerta Albumin/Globulin mass ratio 1.1 {ratio} Normal [facility] Comment on above: Performed By: #### S ALYC, CMP, ACET #### [facility] [address] [address] Pablo Deanna ALP enzyme act/vol 153 U/L Critically high 38-126 [facility] [place] Comment on above: Performed By: #### S ALYC, CMP, ACET #### [facility] [address] [address] Pablo Deanna ALT enzyme act/vol 36 U/L Normal 21-72 [facility] Comment on above: Performed By: #### S ALYC, CMP, ACET #### [facility] [address] [address] Pablo Deanna Anion gap molar conc 12.1 mmol/L Normal [facility] Comment on above: Performed By: #### S ALYC, CMP, ACET #### [facility] [address] [address] Pablo Deanna AST enzyme act/vol 20 U/L Normal 17-59 [facility] Comment on above: Performed By: #### S ALYC, CMP, ACET #### [facility] [address] [address] Pablo Deanna Bilirubin Ql (U) 0.2 mg/dL Normal 0.2-1.3 [facility] Comment on above: Performed By: #### S ALYC, CMP, ACET #### [facility] [address] [address] Pablo Deanna Calcium mass conc 9.4 mg/dL Normal 8.4-10.2 [facility] Comment on above: Performed By: #### S ALYC, CMP, ACET #### [facility] [address] [id number] Pablo Deanna Chloride molar conc 99 mmol/L Normal 98-107 [facility] Comment on above: Performed By: #### S ALYC, CMP, ACET #### [facility] [address] [address] Pablo Deanna CO2 molar conc 32.5 mmol/L Critically high 22.0-30.0 [facility] Comment on above: Performed By: #### S ALYC, CMP, ACET #### [facility] [address] [address] Pablo Deanna Creatinine mass conc 0.90 mg/dL Normal 0.66-1.25 [facility] Comment on above: Performed By: #### S ALYC, CMP, ACET #### [facility] [address] [address] Pablo Deanna EGFR-AF TURKISH >60 Normal >=60 [facility] Comment on above: Performed By: #### S ALYC, CMP, ACET #### [facility] [address] [address] Pablo Deanna EGFR-NON AF TURKISH >60 Normal >=60 [facility] Comment on above: Performed By: #### S ALYC, CMP, ACET #### [facility] [address] [address] Pablo Deanna Globulin mass conc (S) 4.1 g/dL Normal [facility] Comment on above: Performed By: #### S ALYC, CMP, ACET #### [facility] [address] [address] Pablo Deanna Glucose mass conc 104 mg/dL Normal 74-106 [facility] Comment on above: Performed By: #### S ALYC, CMP, ACET #### [facility] [address] [address] Pablo Deanna Potassium molar conc 3.6 mmol/L Normal 3.4-5.0 [facility] Comment on above: Performed By: #### S ALYC, CMP, ACET #### [facility] [address] [address] Pablo Deanna Protein mass conc 8.5 g/dL Critically high 6.1-8.2 [facility] Comment on above: Performed By: #### S ALYC, CMP, ACET #### [facility] [address] [address] Pablo Deanna Sodium molar conc 140 mmol/L Normal 137-145 [facility] Comment on above: Performed By: #### S ALYC, CMP, ACET #### [facility] [address] [place], [place] [address] Pablo Huerta Urea nitrogen mass conc 20.0 mg/dL Critically high 6.4-19. 3 [facility] Comment on above: Performed By: #### S ALYC, CMP, ACET #### [facility] [address] [place], [place] [address] Pablo Huerta Urea nitrogen/Creatinine mass ratio 22.2 mg/mg Normal [facility] Comment on above: Performed By: #### S ALYC, CMP, ACET #### [facility] [address] [place], [place] [address] Pablo Huerta SALICYLATEon 04-05-2019 SALICYLATE 1.3 mg/dL Normal <=20.0 [facility] Comment on above: Performed By: #### S ALYC, CMP, ACET #### [facility] [address] [place], [place] [address] Pablo Huerta Vital Signs Date Time Vital Sign Value Performing Clinician Faci lity 11-24-2023 09:22-0500 Body height 167.6 cm Naomi Gongora MD Work Phone: [employer] 11-24-2023 09:22-0500 Body mass index (BMI) [Ratio] 22.6 kg/m2 Naomi Gongora MD Work Phone: [employer] 11-24-2023 09:22-0500 Body weight 63.5 kg Noami Gongora MD Work Phone: [employer] 11-24-2023 09:05-0500 Heart rate 56 /min Naomi Gongora MD Work Phone: [employer] 11-24-2023 09:05-0500 Respiratory rate 16 /min Naomi Gongora MD Work Phone: [employer] 11-24-2023 09:05-0500 SaO2% (BldA) [Mass fraction] 100 % Naomi Gongora MD Work Phone: [employer] 11-24-2023 06:00-0500 Diastolic blood pressure 55 mm[Hg] Naomi Gongora MD Work Phone: [facility] 11-24-2023 06:00-0500 Systolic blood pressure 123 mm[Hg] Naomi Gongora MD Work Phone: [facility] 11-24-2023 04:00-0500 Body temperature 98.1 [degF] Naomi Gongora MD Work Phone: [facility] 11-24-2023 00:00-0500 Diastolic blood pressure 65 mm[Hg] DO Mago Mann Work Phone: [facility] 11-24-2023 00:00-0500 Heart rate 78 /min DO Mago Mann Work Phone: [facility] 11-24-2023 00:00-0500 Respiratory rate 18 /min DO Mago Mann Work Phone: [facility] 11-24-2023 00:00-0500 SaO2% (BldA) [Mass fraction] 100 % DO Mago Mann Work Phone: [facility] 11-24-2023 00:00-0500 Systolic blood pressure 130 mm[Hg] DO Mago Mann Work Phone: [facility] 11-23-2023 22:48-0500 Body temperature 98.4 [degF] DO Mago Mann Work Phone: [facility] 11-23-2023 11:55-0500 Body height 167.64 cm DO Mago Mann Work Phone: [facility] 11-23-2023 11:55-0500 Body weight 69.5 kg DO Mago Mann Work Phone: [facility] 10-04-2022 07:08-0500 Body weight 64.41 kg Jasper Russo DO Work Phone: [facility] 10-04-2022 07:08-0500 Diastolic blood pressure 75 mm[Hg] Jasper Russo DO Work Phone: [facility] 10-04-2022 07:08-0500 Heart rate 81 /min Jasper Russo DO Work Phone: [facility] 10-04-2022 07:08-0500 SaO2% (BldA) [Mass fraction] 99 % Jasper Russo DO Work Phone: [facility] 10-04-2022 07:08-0500 Systolic blood pressure 128 mm[Hg] Jasper Benderkpatrick DO Work Phone: [facility] 03-20-2022 10:54-0400 Body height 167.6 cm Parvin Muha REGISTERED TRAVEL NURSE.RADAR SCIENTIST Work Phone: [facility] 03-20-2022 10:54-0400 Body weight 72.12 kg Parvin Baltazar REGISTERED TRAVEL NURSE.RADAR SCIENTIST Work Phone: [facility] 03-20-2022 10:54-0400 Diastolic blood pressure 72 mm[Hg] Parvin Sueroha REGISTERED TRAVEL NURSE.RADAR SCIENTIST Work Phone: [facility] 03-20-2022 10:54-0400 Heart rate 97 /min Parvin Muha REGISTERED TRAVEL NURSE.RADAR SCIENTIST Work Phone: [facility] 03-20-2022 10:54-0400 SaO2% (BldA) [Mass fraction] 97 % Parvin Sueroha REGISTERED TRAVEL NURSE.RADAR SCIENTIST Work Phone: [facility] 03-20-2022 10:54-0400 Systolic blood pressure 110 mm[Hg] Parvin Sueroha REGISTERED TRAVEL NURSE.RADAR SCIENTIST Work Phone: [facility] Encounters Encounter Date Encounter Type Care Provider Facility Start: 04-01-2024 Telephone encounter Jasper Hernandez Karan DO Work Phone: Family Medicine Comment on [...] MD, PhD Work Phone: [facility] Start: 11-24-2023 End: 11-24-2023 Emergency department patient visit MAGO MANN Facility:[facility] Start: 11-24-2023 End: 11-24-2023 Emergency department patient visit Naomi Gongora MD Work Phone: [facility] Emergency Medicine Start: 11-23-2023 End: 11-24-2023 Emergency department patient visit NON STAFF Facility:[facility] Start: 11-23-2023 End: 11-24-2023 Emergency department patient visit DO Mago Mann Work Phone: [facility] Work Phone: Start: 09-09-2023 Refill Edith Mary PRN.CNP Work Phone: Neurology Comment on above: Refill Request Med Change Request Start: 04-29-2023 Telephone encounter Jasper Russo DO Work Phone: Family Medicine Comment on above: Forms ([facility] Physical Exam Health Release Form) Start: 04-01-2023 Patient encounter procedure Alyssia King PA-C Work Phone: Family Medicine Comment on above: Subclinical hypothyr oidism (Primary Dx) Start: 03-31-2023 Patient encounter status Enrrique King PA-C Work Phone: [facility] Work Phone: Start: 01-23-2023 ambulatory Alice Reardon [facility] [address] [place] Comment on above: Population Health Na vigation Outreach ( Pool) Start: 01-22-2023 Telephone encounter Jasper Russo DO Work Phone: Family Medicine Comment on above: Patient Question Start: 01-20-2023 ambulatory Karina Mercado Subhashbeverley [facility] [place] Comment on above: Population Health Na vigation Outreach (Community Monitoring Pool) Start: 01-20-2023 Telephone encounter Jasper Russo DO Work Phone: Family Medicine Comment on above: Appointment Start: 01-17-2023 Patient Outreach Chanda Alcaraz RN Instructor Of Education Management Comment on above: Transition Of Care ( TCM initial outreach hospital discharge 01/16/23) Start: 01-15-2023 End: 01-16-2023 ambulatory Kerry LONGOSHEKHAR Facility:[facility] Start: 11-22-2022 Telephone encounter Stacia davis MD, PhD Work Phone: Neurology Comment on above: Forms (BMV) Start: 11-20-2022 End: 11-20-2022 ambulatory Stacia Hightower MD, PhD Work Phone: Neurology Comment on above: 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, intractable (HCC) (Primary Dx) Start: 11-20-2022 End: 11-20-2022 Telemedicine consultation with patient Stacia Hightower MD, PhD Work Phone: [facility] Start: 10-04-2022 End: 10-04-2022 Office outpatient visit [...] Comment on above: Informed Consent (IR B [id number]) Start: 09-02-2022 End: 09-02-2022 ambulatory JASPER Hernandez KARAN Facility:[facility] Start: 03-20-2022 End: 03-20-2022 Patient encounter procedure Parvin Baltazar APRN.RADAR SCIENTIST Work Phone: [facility] Comment on above: Routine physical exa mination (Primary Dx); Encounter for immunization; Major depressive disorder, recurrent episode, mild (HCC); Partial epilepsy with impairment of consciousness, intractable (HCC); Congenital brain anomaly (HCC); Acute constipation; Overweight (BMI 25.0-29.9) Start: 03-20-2022 End: 03-20-2022 Physical examination Parvin Baltazar APRN.RADAR SCIENTIST Work Phone: [facility] Start: 02-12-2022 Refill Latisha BARRAGAN.RADAR SCIENTIST Work Phone: Neurosurgery Start: 02-08-2022 Telephone encounter [...] on above: Result Comment: PERF ORMED BY: [facility] [place] [address] PATHOLOGIST RESTAURANT CREW PERSON HOLLEY FERNANDO M.D. Start: 11-23-2023 Computed tomography [...] GROUP B VACCINE 2 DOSE Parvin Baltazar APRN.RADAR SCIENTIST Work Phone: Start: 08-28-2021 Adult depression scr eening assessment Stacia Hightower MD, PhD Work Phone: Plan of Treatment Date Care Activity Detail Author Start: 02-26-2050 Shingles (RZV) Vacci ne (1 of 2) Shingles (RZV) Vaccine (1 of 2) [facility] Start: 11-23-2033 Urine microalbumin profile DTaP,Tdap,Td Vaccine (7 - Td or Tdap) [facility] Start: 06-20-2024 Influenza vaccination Influenz a Vaccine (Season Ended) [facility] Start: 04-01-2024 End: 04-01-2024 Patient encounter procedure 04/01/2024 3:00 PM EDT Office [place] [address] [place] [address] split annual Family Medicine Comment on above: split annual Start: 04-01-2024 End: 06-01-2024 Thyrotropin [Units/volume] in Serum or Plasma TSH BLD Lab Routine Subclinical hypothyroidism Expected: 04/01/2024, Expires: 06/01/2024 [facility] Work Phone: Comment on above: Expected: 04/01/2024 , Expires: 06/01/2024 Start: 04-01-2024 End: 06-01-2024 Thyroxine (T4) free [Mass/volume] in Serum or Plasma T4 FREE/FREE THYROX Lab Routine Subclinical hypothyroidism Expected: 04/01/2024, Expires: 06/01/2024 [facility] Work Phone: Comment on above: Expected: 04/01/2024 , Expires: 06/01/2024 Start: 03-31-2024 ANNUAL PCP TEAM SUPERVISOR VENDOR QUALITY VANITA DISEASE VISIT ANNUAL PCP TEAM CHRONIC DISEASE VISIT [facility] Start: 03-24-2024 End: 03-24-2024 Nursing evaluation of patient and report 03/24/2024 7:50 AM EDT Nurse Visit Family Medicine [address] [place] [address] [facility] 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) Expected: 01/30/2024, Expires: 04/30/2024 [facility] Work Phone: Comment on above: Expected: 01/30/2024 , Expires: 04/30/2024 Start: 01-30-2024 End: 04-30-2024 Zonisamide [Mass/volume] in Serum or Plasma ZONISAMIDE Lab Routine 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) Expected: 01/30/2024, Expires: 04/30/2024 [facility] Comment on above: Expected: 01/30/2024 , Expires: 04/30/2024 Start: 01-22-2024 ANNUAL PCP TEAM SUPERVISOR VENDOR QUALITY VANITA DISEASE VISIT ANNUAL PCP TEAM CHRONIC DISEASE VISIT [facility] Start: 10-20-2023 Behavioral Health Screening Behavioral Health Screening [facility] Start: 10-20-2023 Depression Assessment Depression Ass essment [facility] Start: 10-04-2023 ANNUAL PCP TEAM SUPERVISOR VENDOR QUALITY VANITA DISEASE VISIT ANNUAL PCP TEAM CHRONIC DISEASE VISIT [facility] Start: 06-20-2023 Covid-19 Vaccine () Covid-19 Vaccine ( season) [facility] Start: 06-20-2023 Influenza vaccination C [facility] Start: 06-07-2023 Urine microalbumin profile [facility] Start: 03-20-2023 ANNUAL PCP TEAM SUPERVISOR VENDOR QUALITY VANITA DISEASE VISIT ANNUAL PCP TEAM CHRONIC DISEASE VISIT [facility] Start: 10-20-2022 [facility] Start: 08-28-2022 Adult depression screening assessment DEPRESSION SCREENING [facility] Start: 07-05-2022 COVID-19 VACCINE (3 - Booster for Moderna series) COVID-19 VACCINE (3 - Booster for Moderna series) [facility] Start: 06-20-2022 Influenza vaccination INFLUENZA (Sea son Ended) [facility] Start: 04-17-2022 MENINGOCOCCAL B: Consider based on risk (2 of 2 - Risk Bexsero 2-dose series) MENINGOCOCCAL B: Consider based on risk (2 of 2 - Risk Bexsero 2-dose series) [facility] Start: 03-30-2022 COVID-19 VACCINE (3 - Booster for Moderna series) COVID-19 VACCINE (3 - Booster for Moderna series) [facility] Start: 03-30-2022 COVID-19 VACCINE (3 - Moderna series) COVID-19 VACCINE (3 - Moderna series) [facility] Start: 10-23-2021 COVID-19 VACCINE (2 - Moderna 3-dose series) COVID-19 VACCINE (2 - Moderna 3-dose series) [facility] Start: 02-26-2018 Hepatitis C screening Hepatitis C An tibody [facility] Start: 02-26-2018 Tetanus + diphtheria + acellular pertussis vaccine (product) [facility] Start: 2016 Meningococcal B (Bexsero,OMV) Vaccine (Optional,16-23 years) Meningococcal B (Bexsero,OMV) Vaccine (Optional,16-23 years) [facility] Start: 02-26-2014 PEDS TO ADULT TRANSI TION ANNUAL ASSESSMENT PEDS TO ADULT TRANSITION ANNUAL ASSESSMENT [facility] Start: 2012 PEDS TO ADULT TRANSI TION INITIAL DISCUSSION PEDS TO ADULT TRANSITION INITIAL DISCUSSION [facility] Start: 02-26-2011 Vaccination for mar n papillomavirus HPV Vaccine (1 - Male 2-dose series) [facility] Start: 02-26-2010 MENINGOCOCCAL B: Consider based on risk (1 of 2 - Risk Bexsero 2-dose series) MENINGOCOCCAL B: Consider based on risk (1 of 2 - Risk Bexsero 2-dose series) [facility] Start: 2000 Hepatitis B vaccination Hepati tis B (HBV) Vaccine (1 of 3 - 3-dose series) [facility] End: 11-25-2023 Basic metabolic 2000 panel - Serum or Plasma BASIC METABOLIC PANEL Lab STAT Morning Blood Draw for 1 Occurrences starting 11/25/2023 until 11/25/2023 [facility] Work Phone: Comment on above: Morning Blood Draw f or 1 Occurrences starting 11/25/2023 until 11/25/2023 End: 11-24-2023 Blood typing serologic abo ABO RH TYPE Lab STAT One time for 1 Occurrences starting 11/24/2023 until 11/24/2023 [facility] [employer] Work Phone: Comment on above: One time for 1 Occur rences starting 11/24/2023 until 11/24/2023 End: 11-25-2023 CBC panel - Blood by Automated count COMPLETE BLOOD COUNT Lab STAT Morning Blood Draw for 1 Occurrences starting 11/25/2023 until 11/25/2023 [facility] Comment on above: Morning Blood Draw f or 1 Occurrences starting 11/25/2023 until 11/25/2023 Patient referral [facility] Work Phone: End: 11-25-2023 Prothrombin time PROTHROMBIN TIME AND INR Lab STAT Morning Blood Draw for 1 Occurrences starting 11/25/2023 until 11/25/2023 [facility] Comment on above: Morning Blood Draw f or 1 Occurrences starting 11/25/2023 until 11/25/2023 End: 11-25-2023 Thromboplastin time partial plasma/whole blood PARTIAL THROMBOPLASTIN TIME Lab STAT Morning Blood Draw for 1 Occurrences starting 11/25/2023 until 11/25/2023 [facility] Comment on above: Morning Blood Draw f or 1 Occurrences starting 11/25/2023 until 11/25/2023 [facility] Immunizations Immunization Date Immunization Notes Care Provider Fa eri 11-23-2023 tetanus toxoid, redu vincent diphtheria toxoid, and acellular pertussis vaccine, adsorbed DO aMgo Mann Work Phone: [facility] 09-16-2022 influenza, injectabl e, quadrivalent, preservative free Sheryl Law Research Coordinator [facility] 09-16-2022 influenza virus vaccine, unspecified formulation Edith Delcid APRN.RADAR SCIENTIST Work Phone: [facility] 03-20-2022 meningococcal B vaccine, recombinant, OMV, adjuvanted Parvin Baltazar APRN.RADAR SCIENTIST Work Phone: [facility] 03-20-2022 pneumococcal (PCV20) vaccine, 20 valent (PREVNAR 20) Parvin Baltazar APRN.RADAR SCIENTIST Work Phone: [facility] 03-20-2022 pneumococcal Conjuga te, unspecified formulation Parvin Baltazar APRN.RADAR SCIENTIST Work Phone: [facility] Work Phone: 02-02-2022 COVID-19 vaccine, fu ll dose (MODERNA) Parvin Baltazar APRN.RADAR SCIENTIST Work Phone: [facility] 09-25-2021 COVID-19 vaccine, fu ll dose (MODERNA) Parvin Baltazar APRN.RADAR SCIENTIST Work Phone: [facility] 10-30-2020 influenza, injectabl e, quadrivalent, contains preservative Stacia Hightower MD, PhD Work Phone: [facility] 06-18-2018 influenza, injectabl e, quadrivalent, contains preservative Stacia Hightower MD, PhD Work Phone: [facility] 08-08-2016 meningococcal polysaccharide (groups A, C, Y and W-135) diphtheria toxoid conjugate vaccine (MCV4P) Stacia Hightower MD, PhD Work Phone: [facility] 02-23-2015 human papilloma viru s vaccine, quadrivalent Stacia Hightower MD, PhD Work Phone: [facility] Work Phone: 10-26-2014 human papilloma viru s vaccine, quadrivalent Stacia Hightower MD, PhD Work Phone: [facility] 08-18-2014 human papilloma viru s vaccine, quadrivalent Stacia Hightower MD, PhD Work Phone: [facility] 08-18-2014 measles, mumps and rubella virus vaccine Stacia Hightower MD, PhD Work Phone: [facility] 08-18-2014 varicella virus vaccine Andr javon Hightower MD, PhD Work Phone: [facility] 06-07-2013 Meningococcal, MCV4, unspecified conjugate formulation(groups A, C, Y and W-135) Stacia Hightower MD, PhD Work Phone: [facility] 06-07-2013 tetanus toxoid, redu vincent diphtheria toxoid, and acellular pertussis vaccine, adsorbed Stacia Hightower MD, PhD Work Phone: [facility] 09-14-2001 diphtheria, tetanus toxoids and acellular pertussis vaccine Stacia Hightower MD, PhD Work Phone: [facility] 09-14-2001 haemophilus influenz ae type b vaccine, HbOC conjugate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 Health Maintenance for items below Health Maintenance items due: COVID-19 VACCINE(3 - Booster for Moderna series) due on 03/30/2022 DEPRESSION ASSESSMENT Never done Navigation Signature: Alice Reardon Population Health Navigator January 23, 2023 4:39 PM documented in this encounter [facility] 01-22-2023 Miscellaneous Notes lmtcb Letter sent to [place]. Pt calling asking if he can have a note for work excusing him until 02/02/23 Pt was seen seen yesterday If okay wants it sent in [employer] documented in this encounter [facility] 01-20-2023 Miscellaneous Notes Reviewed. Thank you. Latisha King PA-C Spoke with patient for TCM scheduling following a hospitalization for RUE cellulitis. The HUB was unable to reach patient for outreach. Patient states the swelling is much improved. Confirmed that he is taking ATB as ordered. TCM scheduled for tomorrow with Latisha. documented in this encounter [facility] 01-20-2023 History of Present illness Narrative POPULATION [...] for Outreach Community Monitoring [place] Payer: Payor: [facility] / Plan: [facility] / Product Type: Medicaid / Care Gap Reviewed:: Follow-up appointment Reminder: Reminder note to check Health Maintenance for items below Health Maintenance items due: COVID-19 VACCINE(3 - Booster for Moderna series) due on 03/30/2022 DEPRESSION ASSESSMENT Never done Navigation Signature: Karina Mercado Population Health Navigator January 20, 2023 9:14 AM documented in this encounter [facility] 01-17-2023 History of Present illness Narrative POPULATION HEALTH NAVIGATION OUTREACH Action/FYI January 17, 2023 1st attempt - Voicemail message left and ConsiderChart message sent offering to assist in scheduling hospital follow up appt. Postponing 2 days. TCM eligible through 01/30/23 Pt discharged from on 01/16/23. Admitted for: RUE cellulitis Patient Identified by Name and : NO Outreach Outcome/Action Unable to reach patient: Left message MyChart message sent Did you use a PCP flex slot to schedule this appointment? N/A Reason for Outreach Community Monitoring [place] Payer: Payor: [facility] MEDICA[facility] / Plan: [facility] / Product Type: Medicaid / Care [...] Action/I: Navigation Team Please assist with scheduling [facility] Hospital discharge follow up. TCM eligible through 01/30. Thank you Pt. Reports doing better. Dressing changed with bacitracin, Xeroform and Kerlix with an [place] covering- per pt. Mother assisting. Pt. Denies s/s of infection. Tolerating diet, denies n/v/d. Pt. Denies questions or concerns in regards to discharge instructions. TCM Home Visit Referral Source of Stratification: [facility] Admission Status: Discharged Readmission Risk Score: [...] RN and I am calling from the [facility] on behalf of your PCP, Jasper Russo, [...] like to speak with a social work clinical team manager to help give you support for any [...] I will send your request to a associate professor of geography who will contact and assist you with that appointment. This will give you an opportunity to ask any questions or address any concerns you may have with your PCP. Inform the patient that if they have any questions or concerns prior to that appointment, to call their PCP's office right away. ACTION TAKEN: Patient desires an appointment - Routed to [facility] [[id number]] for scheduling telehealth visit (telephonic, virtual visit, [...] Ordered -: No documented in this encounter [facility] 01-16-2023 Note HNO ID: [id number] Author: Sangita Guaman MD Service: Hospital Medicine [...] Prophylaxis/Anticoagulants 01/15/23 1700 activity - mobilize patient (pa,oh) VTE Prophylaxis: VTE prophylaxis appropriate Disposition: Home Plan of care discussed with: Provider, RN, Patient SIGNATURE: Sangita Guaman MD PATIENT NAME: Juanjose Bolden DATE: January 16, 2023 TIME: 12:41 PM etx [id number] [facility] 12-05-2022 Miscellaneous Notes BMV signed copies faxed to [employer] and BMV via [employer]ithru Juanjose Jalloh 11/20/[address] Hightower IMPRESSION: [...] Form completed sent to Dr. Hightower via Hith[employer] to review signature pending. Alyssia Jalloh Driving [...] pending Alyssia Jalloh documented in this encounter [facility] 11-20-2022 History of Present illness Narrative [facility]PI[facility]Y [facility] Patient Name: Juanjose Bolden Date of : 2000 Referring Provider: Stacia Hightower [address] [facility] [id number] ESTABLISHED EPILEPSY CLINIC NOTE 11/20/2022 3:40 PM Reason for Visit: No chief complaint on file. Clinical Summary: Mr. Bolden is a 22 year old male seen in [facility] Epilepsy Center. We had a visit using: [employer] I received consent from the patient to [...] father is in and now posted in [place]. Juanjose has a step brother and step sister from his dad. 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 [...] - Seizure risk factors: Brain Tumor Unanswered ORGANISATIONAL PSYCHOLOGIST Infections Unanswered Developmental Delay Unanswered Family history [...] x 1-2 days; 2 weeks in NICU; [facility] No past surgical history on file. FAMILY HISTORY Problem Relation Age of Onset Hypertension Mother Lung Cancer Maternal Grandfather No Known Problems Paternal Grandmother No Known Problems Paternal Grandfather SOCIAL HISTORY: -Lives in [place], [place] Social History Tobacco Use Smoking status: [...] which included: preparing to see the patient [id number] patient care completing clinical documentation obtaining and/or reviewing separately obtained history counseling and educating the patient/family/caregiver Stacia Hightower MD, PhD cc: Primary [place]: [place] [address] [facility] [address] Referring: Stacia Hightower [address] [facility] [address] Patient: Mr. Juanjose Bolden [address] [address] documented in this encounter [facility] 10-04-2022 History of Present illness Narrative [facility] Follow-Up Juanjose Bolden Age: [age] year old [...] for concerns about work shift. Works at [employer]. Shift was changed to come in at [...] or in part with the assistance of eleni speech recognition software and as such may contain grammatical or typographical errors. Jasper Russo DO documented in this encounter [facility] 09-18-2022 History of Present illness Narrative DATE:September 18, 2022 PT. NAME: Juanjose Bolden [facility]#: [id number] IRB #: [id number] PROTOCOL: Epilepsy mechanisms and outcomes biospecimen bank: data registry. Multi Share Program Coordinator: Patricia Jacobsen, PhD. [facility] lathe operator contact lens for study related questions: Karina Barahona Subject [...] Law, Research Coordinator documented in this encounter [facility] 09-02-2022 Note HNO ID: [id number] Author: Edith Delcid APRN.RADAR SCIENTIST Service: ? Author Type: Nurse Practitioner Type: Progress Notes Filed: 09/02/2022 2:56 PM Note Text: [facility] EPILEPSY CENTER CHIEF COMPLAINT: seizures HISTORY OF [...] states he got a new phone. At [facility], he inquired on surgical options for epilepsy but today he states he is no longer interested in epilepsy surgery evaluation. He is taking LTG 200/200/400 and ZNS 200 mg qHS. Denies missed doses. Takes them at 7AM, 12PM and 9PM. He has a new job at [employer], works on an [employer]. Does that four days per week. 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 Also in school at [employer] one day day per week. He quit smoking cigarettes since [facility], relates to financial concerns. He lives by [...] until 6 months seizure-free. 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 He plans to go to school to learn about medical marijuana. Wants to work in a dispensary. He asks if he is a candidate for VNS or RNS. States he has bad ADHD. Asks for a medication to help. He will discuss with his PCP. [facility] 01/2016: The patient management committee agreed that [...] clustering. Max 2 (more content not included)... [facility] 03-20-2022 Instructions Parvin Baltazar APRN.[facility] - 03/20/2022 11:22 AM EDT `Encouraged hydration [...] 6 large 3.6 Raisins 1/2 cup 3.2 [place] 1 medium 3.1 Strawberries, raw 1 cup 2.8 Grapes with skin 1 cup 2.6 Pear, canned or packed 1 cup 2.3 Cherries, frozen or raw 10 1.1 [place], raw 1 cup 0.5 Watermelon, raw 1 cup 0.3 VEGETABLES Beans, bakes 1/2 cup 10.9 Peas, green, frozen, canned 1/2 cup 5.2 Beans,red,kidney 1/2 cup 4.8 Primrose, sweet 1-4 cob 4.7 Broccoli, steamed 2/3 cup 4.1 Potato, sweet or baked 1 small 4.0 Potato chips 15 3.6 Potato, white, raw 1 small 3.5 Squash,baked, winter 1/2 cup 3.5 Popcorn 31/2 cup 3.5 Primrose, sweet, canned 1/2 cup 3.2 Potato, hebrew fried 20 3.2 Zucchini squash 1/2 cup 2.2 Carrots, cooked /2 cup 2.2 [place] sprouts /2 cup 2.0 Cabbage cooked 1/2 cup 1.8 Beans, green, waxed /2 cup 1.7 Beets, cooked /2 cup 1.5 Beans, dougherty /2 cup 1.4 Cauliflower /2 cup 1.13 NUTS AND SEEDS Bussey seeds 2.oz 8.1 Peanuts 4 tbsp. 5.6 Peanutbutter, smooth 2 tbsp. 2.6 documented in this encounter [facility] 03-20-2022 History of Present illness Narrative SUBJECTIVE: [...] Parvin Baltazar APRN.MARGUERITE documented in this encounter [facility] 02-15-2022 Miscellaneous Notes Spoke with [facility] KLP [facility] is preparing Alyssia Jalloh The following [...] denied Alyssia Jalloh Received denial for [facility] from Clonazepam. Forwarded to nurse for review. Uploaded to [employer]. JUANJOSE BOLDEN Last: BJHRYWPP [place] Rx #: [id number] help? Call us at Outcome Deniedon February 09 Denied request. A notification with additional details has been faxed to your office. Call placed to [facility] since nothing was faxed/scanned into his chart to see why denied told to call [facility] medicaid call placed to [facility] spoke with pharmacy denial is because he needs to fail a 30 day trial of the tablet use. will start an appeal process/being transferred over to provider services [facility] has transferred me to several different areas to try and process the expedited appeal Appeal faxed and marked as urgent to [phone] and result [place] determination pending Alyssia Jalloh [place] in [facility] JUANJOSE MITRA (Last: BJHRYWPP) [id number] clonazePAM 0.5MG dispersible tablets Status: PA Request Created: February 08, 2022 Sent: February 08, 2022 Open ===== determination pending Alyssia Jalloh Prior Authorization Needed: Received by: Fax Requested by (pharmacy name): [facility]( [facility]) Phone number: [phone] Name of medication: Clonazepam Strength and dosage: 0.5mg Insurance company name and phone #: [facility] Patient ID: [id number] Patient of Dr. Hightower documented in this encounter [facility] 02-12-2022 Miscellaneous Notes Patient's request for medication is as follows: Signed Prescriptions Disp Refills zonisamide (ZONEGRAN) 100 mg capsule 60 capsule 5 Sig: Take one pill at bedtime for 2 weeks. Then take two pills at bedtime. Continue with this dose. Authorizing Provider: LATISHA SHIPLEY Approved the above prescription and sent electronically to [facility] pharmacy. Latisha Shipley APRN.RADAR SCIENTIST documented in this encounter [facility] 02-08-2022 Miscellaneous Notes Spoke with Juanjose. 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 Bruises/cuts. Taken to ED 01/24/22. LTG level was 11.4. LTG dose [phone]. Had been having auras of weird feeling/tickle [...] has only been on LTG. Latisha Shipley APRN.RADAR SCIENTIST [facility]RS checked and approved. Patient's request for [...] sent electronically to his pharmacy. Latisha Shipley APRN.RADAR SCIENTIST 08/28/2021 VV Latisha Shipley CNP ASSESSMENT: Juanjose [...] appointment in March. He now lives in [place], close to [facility] if labs will be needed. routed for review Alyssia Jalloh Medication Concern Person Calling Juanjose Bolden Name of medication LAMICTAL Concern with medication Pt stating hes having short term memory lost, very tired. Want to have a substitute med Patient of Dr. 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 06/07/2013 Convulsions 06/20/2010 06/07/2013 documented as of this encounter (statuses as of 11/20/2022) [facility] History of Past illness Narrative* Problem Noted Date Resolved Date Major depressive disorder, recurrent episode, mi ld 03/18/2019 11/20/2022 Drug side effects, initial encounter 07/15/2018 11/20/2022 BMI (body mass index), pediatric, 95-99% for age 1008/08/2016 06/18/2018 Brain anomaly, 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 06/07/2013 Convulsions 06/20/2010 06/07/2013 documented as of this encounter (statuses as of 12/05/2022) [facility] History of Past illness Narrative* Problem Noted Date Resolved Date Major depressive disorder, recurrent episode, mi ld 03/18/2019 11/20/2022 Drug side effects, initial encounter 07/15/2018 11/20/2022 BMI (body mass index), pediatric, 95-99% for age 1008/08/2016 06/18/2018 Brain anomaly, 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 06/07/2013 Convulsions 06/20/2010 06/07/2013 documented as of this encounter (statuses as of 01/17/2023) [facility] History of Past illness Narrative* Problem Noted Date Resolved Date Major depressive disorder, recurrent episode, mi ld 03/18/2019 11/20/2022 Drug side effects, initial encounter 07/15/2018 11/20/2022 BMI (body mass index), pediatric, 95-99% for age 1008/08/2016 06/18/2018 Brain anomaly, 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 06/07/2013 Convulsions 06/20/2010 06/07/2013 documented as of this encounter (statuses as of 01/20/2023) [facility] History of Past illness Narrative* Problem Noted Date Resolved Date Major depressive disorder, recurrent episode, mi ld 03/18/2019 11/20/2022 Drug side effects, initial encounter 07/15/2018 11/20/2022 BMI (body mass index), pediatric, 95-99% for age 1008/08/2016 06/18/2018 Brain anomaly, 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 06/07/2013 Convulsions 06/20/2010 06/07/2013 documented as of this encounter (statuses as of 01/24/2023) [facility] History of Past illness Narrative* Problem Noted Date Resolved Date Major depressive disorder, recurrent episode, mi ld 03/18/2019 11/20/2022 Drug side effects, initial encounter 07/15/2018 11/20/2022 BMI (body mass index), pediatric, 95-99% for age 1008/08/2016 06/18/2018 Brain anomaly, 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 06/07/2013 Convulsions 06/20/2010 06/07/2013 documented as of this encounter (statuses as of 04/01/2023) [facility] History of Past illness Narrative* Problem Noted Date Diagnosed Date Resolved Date Major depressive disorder, r ecurrent episode, mild 03/18/2019 11/20/2022 Drug side effects, initial encounter 07/15/2018 11/20/2022 BMI (body mass index), pedia tric, 95-99% for age 1008/08/2016 06/18/2018 Brain anomaly, 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 06/07/2013 Convulsions 06/20/2010 06/07/2013 documented as of this encounter (statuses as of 05/01/2023) [facility] History of Past illness Narrative* Problem Noted Date Diagnosed Date Resolved Date Major depressive disorder, r ecurrent episode, mild 03/18/2019 11/20/2022 Drug side effects, initial encounter 07/15/2018 11/20/2022 BMI (body mass index), pedia tric, 95-99% for age 1008/08/2016 06/18/2018 Brain anomaly, 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 06/07/2013 Convulsions 06/20/2010 06/07/2013 documented as of this encounter (statuses as of 09/09/2023) [facility] History of Past illness Narrative* Problem Noted Date Diagnosed Date Resolved Date Major depressive disorder, r ecurrent episode, mild 03/18/2019 11/20/2022 Drug side effects, initial encounter 07/15/2018 11/20/2022 BMI (body mass index), pedia tric, 95-99% for age 1008/08/2016 06/18/2018 Brain anomaly, 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 06/07/2013 Convulsions 06/20/2010 06/07/2013 documented as of this encounter (statuses as of 11/27/2023) [facility] History of Past illness Narrative* Problem Noted Date Resolved Date BMI (body mass index), pediatric, 95-99% for age 1008/08/2016 06/18/2018 Brain anomaly, 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 06/07/2013 Convulsions 06/20/2010 06/07/2013 documented as of this encounter (statuses as of 02/08/2022) [facility] History of Past illness Narrative* Problem Noted Date Resolved Date BMI (body mass index), pediatric, 95-99% for age 1008/08/2016 06/18/2018 Brain anomaly, 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 06/07/2013 Convulsions 06/20/2010 06/07/2013 documented as of this encounter (statuses as of 02/12/2022) [facility] History of Past illness Narrative* Problem Noted Date Resolved Date BMI (body mass index), pediatric, 95-99% for age 1008/08/2016 06/18/2018 Brain anomaly, 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 06/07/2013 Convulsions 06/20/2010 06/07/2013 documented as of this encounter (statuses as of 02/15/2022) [facility] History of Past illness Narrative* Problem Noted Date Resolved Date BMI (body mass index), pediatric, 95-99% for age 1008/08/2016 06/18/2018 Brain anomaly, 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 06/07/2013 Convulsions 06/20/2010 06/07/2013 documented as of this encounter (statuses as of 03/20/2022) [address]20-2016 History of Past illness Narrative* Problem Noted Date Resolved Date BMI (body mass index), pediatric, 95-99% for age 1008/08/2016 06/18/2018 Brain anomaly, 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 06/07/2013 Convulsions 06/20/2010 06/07/2013 documented as of this encounter (statuses as of 09/16/2022) [facility] History of Past illness Narrative* Problem Noted Date Resolved Date BMI (body mass index), pediatric, 95-99% for age 1008/08/2016 06/18/2018 Brain anomaly, 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 06/07/2013 Convulsions 06/20/2010 06/07/2013 documented as of this encounter (statuses as of 09/18/2022) [facility] History of Past illness Narrative* Problem Noted Date Resolved Date BMI (body mass index), pediatric, 95-99% for age 1008/08/2016 06/18/2018 Brain anomaly, 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 06/07/2013 Convulsions 06/20/2010 06/07/2013 documented as of this encounter (statuses as of 09/27/2022) [address]20-2016 History of Past illness Narrative* Problem Noted Date Resolved Date BMI (body mass index), pediatric, 95-99% for age 1008/08/2016 06/18/2018 Brain anomaly, 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 06/07/2013 Convulsions 06/20/2010 06/07/2013 documented as of this encounter (statuses as of 10/04/2022) [facility] Partial epilepsy with impairment of consciousness, 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, with intractable epilepsy [facility] Partial epilepsy with impairment of consciousness, 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, with intractable epilepsy [facility] Routine physical examination- Primary [...] (BMI 25.0-29.9) Overweight [facility] follow-up- Primary Other follow-up examination Partial epilepsy with impairment of consciousness, 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, with intractable epilepsy Cannabis dependence (HCC) Cannabis dependence, unspecified [facility] Partial epilepsy with impairment of consciousness, intractable (HCC)- Primary Localization-related (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, with intractable epilepsy [facility] Diagnosis Subclinical hypothyroidism- Primary Other specified acquired hypothyroidism [facility] noteNo assessment information availableSelect [facility] Phone: Evaluation note* Diagnosis Closed lumbar [...] of intractable epilepsy [facility] 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)- Primary Localization-related (focal) (partial) epilepsy and epileptic syndromes with simple partial seizures, without mention of intractable epilepsy documented in this encounter [facility] Summary Purpose Family History No Family History Records FoundNo Family History Records FoundNo Family History Records FoundNo Family History Records FoundNo Family History Records FoundNo Family History Records Found Advance Directives No Advanced Directives Records FoundDocuments on File Type Date Recorded Patient 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 anation Advance Directive(s) 02/08/2022 12:00 PM [...] and content) DATE CREATED AUTHOR 04/13/2019 [facility] DATE CREATED AUTHOR AUTHOR'S ORGANIZ ATION 01/28/2022 [facility] DATE CREATED AUTHOR AUTHOR'S ORGANIZ ATION 06/05/2023 [facility] DATE CREATED AUTHOR AUTHOR'S ORGANIZ ATION 12/03/2023 [facility] DATE CREATED AUTHOR AUTHOR'S ORGANIZ ATION 12/22/2023 [facility] DATE CREATED AUTHOR AUTHOR'S ORGANIZ ATION 04/10/2024 [facility] Source Comments (unrecognize d section and content) In the event this informatio n is protected by the Federal Confidentiality of Alcohol and Drug Abuse Patient Records regulations: The Federal rules restrict any use of the information to criminally investigate or prosecute any alcohol or drug abuse patient.[facility] the event this information is protected by the Federal Confidentiality of Alcohol and Drug Abuse Patient Records regulations: The Federal rules restrict any use of the information to criminally investigate or prosecute any alcohol or drug abuse patient.[facility] the event this information is protected by the Federal Confidentiality of Alcohol and Drug Abuse Patient Records regulations: The Federal rules restrict any use of the information to criminally investigate or prosecute any alcohol or drug abuse patient.[facility] the event this information is protected by the Federal Confidentiality of Alcohol and Drug Abuse Patient Records regulations: The Federal rules restrict any use of the information to criminally investigate or prosecute any alcohol or drug abuse patient.[facility] Hospital[facility] the event this information is protected by the Federal Confidentiality of Alcohol and Drug Abuse Patient Records regulations: The Federal rules restrict any use of the information to criminally investigate or prosecute any alcohol or drug abuse patient.[facility] Hospital[facility] the event this information is protected by the Federal Confidentiality of Alcohol and Drug Abuse Patient Records regulations: The Federal rules restrict any use of the information to criminally investigate or prosecute any alcohol or drug abuse patient.[facility] Hospital[facility] the event this information is protected by the Federal Confidentiality of Alcohol and Drug Abuse Patient Records regulations: The Federal rules restrict any use of the information to criminally investigate or prosecute any alcohol or drug abuse patient.[facility] Hospital[facility] the event this information is protected by the Federal Confidentiality of Alcohol and Drug Abuse Patient Records regulations: The Federal rules restrict any use of the information to criminally investigate or prosecute any alcohol or drug abuse patient.[facility] HospitalIn the event this information is protected by the Federal Confidentiality of Alcohol and Drug Abuse Patient Records regulations: The Federal rules restrict any use of the information to criminally investigate or prosecute any alcohol or drug abuse patient.[facility] HospitalIn the event this information is protected by the Federal Confidentiality of Alcohol and Drug Abuse Patient Records regulations: The Federal rules restrict any use of the information to criminally investigate or prosecute any alcohol or drug abuse patient.[facility] HospitalIn the event this information is protected by the Federal Confidentiality of Alcohol and Drug Abuse Patient Records regulations: The Federal rules restrict any use of the information to criminally investigate or prosecute any alcohol or drug abuse patient.[facility] HospitalIn the event this information is protected by the Federal Confidentiality of Alcohol and Drug Abuse Patient Records regulations: The Federal rules restrict any use of the information to criminally investigate or prosecute any alcohol or drug abuse patient.[facility] HospitalIn the event this information is protected by the Federal Confidentiality of Alcohol and Drug Abuse Patient Records regulations: The Federal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
[2024-06-06 20:46] VITALS: BP 138/79
[2024-06-06 21:00] VITALS: BP 137/73; PULSE 103; O2SAT 99
[2024-06-06 21:02] LABS: Basophils Percent Auto 0.4 % (0.2-2.0); Eosinophils Absolute Auto 0.2 10^3/uL (0.0-0.7); Eosinophils Percent Auto 2.8 % (0.9-7.0); Hematocrit 44.9 % (42.0-54.0); Hemoglobin 14.4 g/dL (14.0-18.0); Immature Granulocytes Abs Auto 0.04 10^3/uL (0.00-0.03); Immature Granulocytes Pct Auto 0.5 % (0.0-0.5); Lymphocytes Absolute Auto 3.6 10^3/uL (1.2-3.8); Lymphocytes Percent Auto 47.7 % (20.5-60.0); Mean Corpuscular HGB Conc 32.1 g/dL (29.9-35.2); Mean Corpuscular Hemoglobin 31.1 pg (25.9-34.0); Mean Platelet Volume 9.1 fL (9.5-13.5); Monocytes Absolute Auto 0.5 10^3/uL (0.3-0.8); Monocytes Percent Auto 6.6 % (1.7-12.0); Neutrophils Absolute Auto 3.2 10^3/uL (1.4-6.5); Platelet Count 303 10^3/uL (150-450); Red Blood Count 4.63 10^6/uL (4.70-6.10); Red Cell Distribution Width 11.1 % (11.0-15.0); White Blood Count 7.5 10^3/uL (4.0-11.0)
[2024-06-06 21:03] VITALS: PULSE 89
[2024-06-06 21:10] LABS: Anion Gap 28.3; BUN Creatinine Ratio 16.4; Calcium 8.8 mg/dL (8.5-10.1); Carbon Dioxide 14.4 mmol/L (21.0-32.0); Chloride 99 mmol/L (98-107); Estimated GFR (African America >60 (>=60); Estimated GFR (Non-African Ame >60 (>=60); Glucose 77 mg/dL (74-106); Potassium 3.7 mmol/L (3.5-5.1); Sodium 138 mmol/L (136-145)
== END 2024-06-06 22:05 | disposition home or self-care (01) ==
PROVIDERS: Emergency Provider Emergency Medicine
DX: G40.89 Other seizures (principal); F17.200 Nicotine dependence, unspecified, uncomplicated
CPT/HCPCS: 36415; 80048; 85025; 93005; 99284